=== PATIENT | female | born 1955 | race African-American/Black ===

== ENCOUNTER → 2018-01-28 | Outpatient (CLI) | payer OTHER ==
[~2018-01-28] MED LIST: ACYCLOVIR 400400 M1 PO; ACYCLOVIR 400400 MG PO; ADULT LOW DOSE81 MG PO; ALBUTEROL2.5 MG/31 INH; AMITIZA 24 MCG24 MC1 PO; ANORO ELLIPTA1 EACH INH; ASPIR 8181 MG PO; ATIVAN2 MG PO; BELLADONNA-OPI1 EACH PO; BELLADONNA-OPI1 EACH RECTAL; BENTYL 10 MG CA10 M1 PO; BENTYL10 MG PO; CARAFATE 1 GM TA1 G1 PO; CEFDINIR300 MG PO; CEFPODOXIME PR100 MG PO; COLACE 100 MG100 MG PO; COMPAZINE25 MG RE; DARVOCET-N 1001 EACH PO; ERYTHROMYCIN250 MG PO; FLOMAX0.4 MG PO; HCTZ PO; HYDROCHLOROTHIA25 M2 PO; HYDROCODON-ACE1 EAC8 PO; HYDROCORTISONE30 G9; K-DUR 20 MEQ T20 MEQ PO; LIDOCAINE VISC100 ML SW&SWALLOW; LIDOCARE1 EACH TOP; LINZESS290 MCG PO; LIPITOR10 MG PO; LORAZEPAM 0.50.5 MG PO; LORAZEPAM 1 MG T1 M1 PO; LORTAB 5 MG/5001 TA1 PO; METHADOSE5 MG PO; METHOCARBAMOL500 M2 PO; MOBIC15 MG PO; NORCO 5-325 TA1 EACH; NORCO 5-325 TA1 EACH PO; NORCO 7.5-3251 EACH PO; OMEPRAZOLE 20 M20 M1 PO; OMEPRAZOLE20 MG PO; PANCREASE PO; PHENERGAN 25 MG25 M1 PO; PHENERGAN 25 MG25 MG PO; PLAVIX 75 MG TA75 MG PO; POTASSIUM20 PO; PRAVACHOL20 MG PO; PRAVASTATIN SOD20 MG PO; PREDNISONE 20 M20 MG PO; PROAIR HFA8.5 GM INH; PROMS25 WY RECTAL; PROSED-DS TABL1 EACH PO; ROBAXIN 750 MG750 M1 PO; SIMETHICON CHEW80 M1 PO; TESSALON PERLE100 MG PO; TRIAMTERENE-HC1 EAC1; TRIAMTERENE-HC1 EAC1 PO; VALTREX1000 MG PO; VENTOLIN HFA 1818 GM INH; VERTICALM25 MG PO; VITAMIN D400 UNI2 PO; VITAMIN E400 UNI2 PO; VITAMINC500 PO; XIFAXAN 200 MG200 M1 PO; ZENPEP DR 5,001 EAC1 PO; ZOFRAN ODT8 MG PO; ZPAK PO
== END ==
LOC: RAD 09:36
DX: R06.00 Dyspnea, unspecified (principal)

== ENCOUNTER 2018-02-01 13:14 | Emergency (ER) | payer OTHER ==
[~2018-02-01] VITALS: Ht 170.2 cm; Wt 107.5 kg
--- NOTE | ~2018-02-01 | EKG ---
[place] [address] [address] [facility] [place] [address] ELECTROCARDIOGRAM REPORT Name: JUVE SNEEDN Miranda 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
[~2018-02-01 13:14] MED LIST changes: -ACYCLOVIR 400400 MG PO; -ALBUTEROL2.5 MG/31 INH; -ANORO ELLIPTA1 EACH INH; -ASPIR 8181 MG PO; -BELLADONNA-OPI1 EACH PO; -BELLADONNA-OPI1 EACH RECTAL; -BENTYL 10 MG CA10 M1 PO; -CARAFATE 1 GM TA1 G1 PO; -CEFDINIR300 MG PO; -CEFPODOXIME PR100 MG PO; -FLOMAX0.4 MG PO; -HYDROCODON-ACE1 EAC8 PO; -LIDOCAINE VISC100 ML SW&SWALLOW; -LIDOCARE1 EACH TOP; -LINZESS290 MCG PO; -LORAZEPAM 1 MG T1 M1 PO; -METHADOSE5 MG PO; -METHOCARBAMOL500 M2 PO; -MOBIC15 MG PO; -NORCO 5-325 TA1 EACH PO; -NORCO 7.5-3251 EACH PO; -OMEPRAZOLE 20 M20 M1 PO; -PHENERGAN 25 MG25 MG PO; -POTASSIUM20 PO; -PRAVACHOL20 MG PO; -PREDNISONE 20 M20 MG PO; -PROAIR HFA8.5 GM INH; -PROMS25 WY RECTAL; -ROBAXIN 750 MG750 M1 PO; -TESSALON PERLE100 MG PO; -VENTOLIN HFA 1818 GM INH; -VERTICALM25 MG PO; -VITAMIN D400 UNI2 PO; -VITAMIN E400 UNI2 PO; -VITAMINC500 PO; -ZENPEP DR 5,001 EAC1 PO; -ZOFRAN ODT8 MG PO; -ZPAK PO
[2018-02-01] MEDS ORDERED: HYDROCHLOROTHIA25 M2 PO (13:37)
[2018-02-01] MEDS ORDERED: OMEPRAZOLE 20 M20 M1 PO (13:38)
[2018-02-01] MEDS ORDERED: ACYCLOVIR 400400 MG PO (13:38)
[2018-02-01] MEDS ORDERED: ROBAXIN 750 MG750 M1 PO (13:40)
[2018-02-01] MEDS ORDERED: CARAFATE 1 GM TA1 G1 PO (13:41)
[2018-02-01] MEDS ORDERED: VENTOLIN HFA 1818 GM INH (13:43)
[2018-02-01] MEDS ORDERED: FLOMAX0.4 MG PO (13:43)
[2018-02-01] MEDS ORDERED: ANORO ELLIPTA1 EACH INH (13:43)
[2018-02-01] MEDS ORDERED: BELLADONNA-OPI1 EACH PO (13:44)
[2018-02-01 14:05] LABS: URINE BILIRUBIN 1+ (Negative); URINE BLOOD NEGATIVE (Negative); URINE CLARITY CLEAR; URINE COLOR YELLOW; URINE GLUCOSE-RANDOM* NEGATIVE (Negative); URINE KETONES NEGATIVE (Negative); URINE LEUKOCYTES-REFLEX NEGATIVE (Negative); URINE NITRITE-REFLEX NEGATIVE (Negative); URINE PROTEIN (DIPSTICK) TRACE (Negative); URINE SPECIFIC GRAVITY >= 1.030 (1.005-1.035); URINE UROBILINOGEN 0.2 E.U./dl (0.2-1.0)
[2018-02-01 14:10] LABS: ICTOTEST (BILI CONFIRMATORY) Negative (Negative)
[2018-02-01 16:26] LABS: ABSOLUTE NEUTROPHILS 4.7 thou/uL (1.4-8.2); BASOPHILS 0.7 % (0.0-2.0); EOSINOPHILS 0.6 % (0.0-3.0); HEMATOCRIT 39.4 % (37.0-47.0); HEMOGLOBIN 13.1 gm/dL (12.0-15.0); LYMPHOCYTES 40.1 % (24.0-44.0); MCH 29.6 pg (26.0-34.0); MCHC 33.1 g/dL (28.0-37.0); MCV 89.5 fL (80.0-100.0); PLATELET COUNT 371 thou/uL (150-400); POLYS 51.6 % (36.0-66.0); RBC 4.41 mil/uL (4.20-5.00); RDW 15.8 % (10.5-14.5); WBC 9.2 thou/uL (4.0-11.0)
[2018-02-01 16:42] LABS: ANION GAP 8 mmol/L (7-16); BUN 11 mg/dL (7-18); CALCIUM 9.2 mg/dL (8.5-10.1); CHLORIDE 104 mmol/L (98-107); CO2 28 mmol/L (21-32); CREATININE 1.1 mg/dL (0.6-1.0); GLUCOSE 84 mg/dL (74-106); POTASSIUM 3.3 mmol/L (3.5-5.1); SODIUM 140 mmol/L (136-145)
[2018-02-01 16:46] LABS: ALBUMIN 3.5 g/dL (3.4-5.0); LIPASE 121 U/L (73-393); SGOT 20 U/L (15-37); SGPT 27 U/L (30-65); TOTAL BILIRUBIN 0.3 mg/dL (<0.1-1.0); TOTAL PROTEIN 6.9 g/dL (6.4-8.2); TROPONIN-I < 0.04 ng/mL (<0.06)
[2018-02-01 16:54] LABS: DIRECT BILIRUBIN < 0.1 mg/dL (<0.1-0.3)
[2018-02-01 19:19] VITALS: BP 136/84
[2018-03-22] MEDS ORDERED: BENTYL 10 MG CA10 M1 PO (08:20)
[2018-03-22] MEDS ORDERED: LIDOCARE1 EACH TOP (08:21)
[2018-03-22] MEDS ORDERED: LIDOCAINE VISC100 ML SW&SWALLOW (08:22)
[2018-03-22] MEDS ORDERED: PROMS25 WY RECTAL (08:22)
[2018-03-22] MEDS ORDERED: PHENERGAN 25 MG25 MG PO (08:23)
[2018-03-22] MEDS ORDERED: HYDROCHLOROTHIA25 M2 PO (08:23)
[2018-03-22] MEDS ORDERED: HYDROCODON-ACE1 EAC8 PO (08:24)
[2018-03-22] MEDS ORDERED: LORAZEPAM 1 MG T1 M1 PO (08:24)
[2018-03-22] MEDS ORDERED: METHOCARBAMOL500 M2 PO (08:25)
[2018-03-22] MEDS ORDERED: POTASSIUM20 PO (08:25)
[2018-03-22] MEDS ORDERED: PRAVACHOL20 MG PO (08:26)
[2018-03-22] MEDS ORDERED: FLOMAX0.4 MG PO (08:26)
[2018-03-22] MEDS ORDERED: ACYCLOVIR 400400 MG PO (08:27)
[2018-03-22] MEDS ORDERED: CARAFATE 1 GM TA1 G1 PO (08:27)
[2018-03-22] MEDS ORDERED: BELLADONNA-OPI1 EACH RECTAL (08:28)
[2018-03-22] MEDS ORDERED: LINZESS290 MCG PO (08:28)
[2018-03-22] MEDS ORDERED: ASPIR 8181 MG PO (08:28)
[2018-03-22] MEDS ORDERED: OMEPRAZOLE 20 M20 M1 PO (08:29)
[2018-03-22] MEDS ORDERED: ANORO ELLIPTA1 EACH INH (08:30)
[2018-03-22] MEDS ORDERED: PROAIR HFA8.5 GM INH (08:30)
[2018-03-22] MEDS ORDERED: VITAMIN D400 UNI2 PO (08:31)
[2018-03-22] MEDS ORDERED: VITAMINC500 PO (08:31)
[2018-03-22] MEDS ORDERED: VITAMIN E400 UNI2 PO (08:31)
[2018-03-22] MEDS ORDERED: TESSALON PERLE100 MG PO (08:32)
[2018-03-22] MEDS ORDERED: ZENPEP DR 5,001 EAC1 PO (08:57)
[2018-08-03] MEDS ORDERED: VERTICALM25 MG PO (15:17)
[2018-08-19] MEDS ORDERED: METHADOSE5 MG PO (19:24)
[2018-08-19] MEDS ORDERED: PREDNISONE 20 M20 MG PO (20:49)
== END 2018-02-01 19:21 | disposition home or self-care (01) ==
LOC: ER 13:14
PROVIDERS: Emergency Medicine
DX: K59.00 Constipation, unspecified (principal); R13.10 Dysphagia, unspecified; E78.5 Hyperlipidemia, unspecified; K21.9 Gastro-esophageal reflux disease without esophagitis; Z90.49 Acquired absence of other specified parts of digestive tract; Z90.710 Acquired absence of both cervix and uterus; Z88.5 Allergy status to narcotic agent; Z88.6 Allergy status to analgesic agent

== ENCOUNTER 2018-03-24 06:56 | Emergency (ER) | payer OTHER ==
[~2018-03-24] VITALS: Ht 152.4 cm; Wt 116.1 kg
--- NOTE | ~2018-03-24 | EKG ---
[place] [address] [facility] [place] [address] ELECTROCARDIOGRAM REPORT Name: JUVE SNEEDN Miranda [facility] [id number] Admission: 03/24/18 Attend Phys: Discharge: 03/24/18 Date of : 59 Report #: [id number] THIS REPORT FOR: //name// [facility] ED Test Date: 2018-03-24 Test Time: 07:24:36 Pat Name: MIGDALIA SNEED Department: Room: Gender: F Work Counselor: : 1955 Requested By: Amy Kang Order Number: [id number] MD: Eduardo Guy Measurements Intervals [place] Rate: 71 P: 63 [place]: 172 QRS: 35 QRSD: 89 T: 11 QT: 384 QTc: 418 Interpretive Statements Sinus rhythm No significant abnormality Compared to ECG 02/01/2018 15:09:46 No significant changes Electronically Signed On 03-24-2018 16:38:00 CDT by Eduardo Guy [email or web address] <ELECTRONICALLY SIGNED> By: Eduardo Guy MD, [facility] 03/24/18 1638 0724 3 Eduardo Guy MD, FACC /EPI
[~2018-03-24 06:56] MED LIST changes: +ACYCLOVIR 400400 MG PO; +ANORO ELLIPTA1 EACH INH; +ASPIR 8181 MG PO; +BELLADONNA-OPI1 EACH PO; +BELLADONNA-OPI1 EACH RECTAL; +BENTYL 10 MG CA10 M1 PO; +CARAFATE 1 GM TA1 G1 PO; +FLOMAX0.4 MG PO; +HYDROCODON-ACE1 EAC8 PO; +LIDOCAINE VISC100 ML SW&SWALLOW; +LIDOCARE1 EACH TOP; +LINZESS290 MCG PO; +LORAZEPAM 1 MG T1 M1 PO; +METHOCARBAMOL500 M2 PO; +OMEPRAZOLE 20 M20 M1 PO; +PHENERGAN 25 MG25 MG PO; +POTASSIUM20 PO; +PRAVACHOL20 MG PO; +PROAIR HFA8.5 GM INH; +PROMS25 WY RECTAL; +ROBAXIN 750 MG750 M1 PO; +TESSALON PERLE100 MG PO; +VENTOLIN HFA 1818 GM INH; +VITAMIN D400 UNI2 PO; +VITAMIN E400 UNI2 PO; +VITAMINC500 PO; +ZENPEP DR 5,001 EAC1 PO
[2018-03-24 07:45] LABS: ABSOLUTE NEUTROPHILS 4.2 thou/uL (1.4-8.2); BASOPHILS 1.2 % (0.0-2.0); EOSINOPHILS 1.6 % (0.0-3.0); HEMATOCRIT 39.3 % (37.0-47.0); HEMOGLOBIN 12.9 gm/dL (12.0-15.0); LYMPHOCYTES 37.9 % (24.0-44.0); MCH 29.8 pg (26.0-34.0); MCHC 32.9 g/dL (28.0-37.0); MCV 90.4 fL (80.0-100.0); MONOCYTES 6.3 % (1.0-8.0); PLATELET COUNT 336 thou/uL (150-400); RBC 4.35 mil/uL (4.20-5.00); RDW 16.1 % (10.5-14.5); WBC 7.9 thou/uL (4.0-11.0)
[2018-03-24 07:53] LABS: ANION GAP 8 mmol/L (7-16); BUN 14 mg/dL (7-18); CALCIUM 9.1 mg/dL (8.5-10.1); CHLORIDE 111 mmol/L (98-107); CO2 22 mmol/L (21-32); CREATININE 0.9 mg/dL (0.6-1.0); GLUCOSE 103 mg/dL (74-106); POTASSIUM 4.4 mmol/L (3.5-5.1); SODIUM 141 mmol/L (136-145)
[2018-03-24 08:02] LABS: TROPONIN-I < 0.04 ng/mL (<0.06)
[2018-03-24] MEDS ORDERED: NORCO 5-325 TA1 EACH PO (09:31)
== END 2018-03-24 10:23 | disposition home or self-care (01) ==
LOC: ER 06:56
PROVIDERS: Emergency Medicine
DX: M25.512 Pain in left shoulder (principal); E78.5 Hyperlipidemia, unspecified; K21.9 Gastro-esophageal reflux disease without esophagitis; F41.9 Anxiety disorder, unspecified; I50.9 Heart failure, unspecified; Z90.49 Acquired absence of other specified parts of digestive tract; Z90.710 Acquired absence of both cervix and uterus; Z88.5 Allergy status to narcotic agent; Z88.8 Allergy status to other drugs, medicaments and biological substances

== ENCOUNTER → 2018-03-25 | Day surgery (SDC) | payer OTHER ==
[~2018-03-25] VITALS: Ht 170.2 cm; Wt 107.0 kg
[~2018-03-25] MED LIST changes: +NORCO 5-325 TA1 EACH PO
[2018-03-25 06:53] LABS: HEMATOCRIT 39.2 % (37.0-47.0); HEMOGLOBIN 12.8 gm/dL (12.0-15.0)
[2018-03-25 07:04] LABS: CALCIUM 9.4 mg/dL (8.5-10.1); CREATININE 0.9 mg/dL (0.6-1.0); POTASSIUM 3.9 mmol/L (3.5-5.1)
[2018-03-25 07:24] VITALS: BP 127/61
[2018-03-25 08:59] VITALS: BP 127/61
== END | disposition home or self-care (01) ==
LOC: OR 05:30
PROVIDERS: Surgery
DX: Z45.2 Encounter for adjustment and management of vascular access device (principal); I87.2 Venous insufficiency (chronic) (peripheral); E78.00 Pure hypercholesterolemia, unspecified; E78.5 Hyperlipidemia, unspecified; K21.9 Gastro-esophageal reflux disease without esophagitis; K86.0 Alcohol-induced chronic pancreatitis; F17.210 Nicotine dependence, cigarettes, uncomplicated; F41.8 Other specified anxiety disorders; Z86.73 Personal history of transient ischemic attack (TIA), and cerebral infarction without residual deficits; Z90.49 Acquired absence of other specified parts of digestive tract; Z90.710 Acquired absence of both cervix and uterus; Z98.890 Other specified postprocedural states; Z88.8 Allergy status to other drugs, medicaments and biological substances; Z79.82 Long term (current) use of aspirin; Z79.899 Other long term (current) drug therapy; Z79.891 Long term (current) use of opiate analgesic
CPT/HCPCS: 50010; 50101; 50386; 50403; 51938; 54118; 56524; 56525; 56526; 70005

== ENCOUNTER 2018-05-04 08:00 | Emergency (ER) | payer OTHER ==
[~2018-05-04] VITALS: Ht 170.2 cm; Wt 106.6 kg
[2018-05-04] MEDS ORDERED: HYDROCODON-ACE1 EAC8 PO (08:18)
== END 2018-05-04 08:30 | disposition home or self-care (01) ==
LOC: ER 08:00
DX: M72.2 Plantar fascial fibromatosis (principal); E78.5 Hyperlipidemia, unspecified; K21.9 Gastro-esophageal reflux disease without esophagitis; F41.9 Anxiety disorder, unspecified; Z90.49 Acquired absence of other specified parts of digestive tract; Z90.710 Acquired absence of both cervix and uterus; Z86.73 Personal history of transient ischemic attack (TIA), and cerebral infarction without residual deficits; Z88.5 Allergy status to narcotic agent; Z88.8 Allergy status to other drugs, medicaments and biological substances

== ENCOUNTER → 2018-05-15 | Outpatient (CLI) | payer OTHER | LOC: RAD 09:08 | DX: R05 Cough (principal) ==

== ENCOUNTER 2018-05-22 12:06 | Emergency (ER) | payer OTHER ==
[~2018-05-22] VITALS: Ht 170.2 cm; Wt 104.3 kg
--- NOTE | ~2018-05-22 | HC ---
[facility] [place] [facility] [place] [address] CONSULTATION Name: MIGDALIA SNEED Room #: DEP Kaylynn#: [id number] Admission: 05/22/18 Attend Phys: Discharge: 05/22/18 Date of : 59 Report #: [id number] THIS REPORT FOR: //name// CC: Jayson Walter DICTATED BY: Stefania Brooke NP REASON FOR VISIT: Dysphagia. HISTORY OF PRESENT ILLNESS: The patient is a very pleasant 63-year-old -Japanese female who came into the Emergency Room with dysphagia. The patient states that this morning she was taking her morning pills and noticed that she started to have difficulty getting the pills down. She had to drink water just to try to get those pills down. She states she still feels like it is stuck in the middle of her chest. In the back of her throat, she feels like it is closing in on her and she has had this problem before. The patient follows with Dr. Lorenzana in our group. She last had an upper endoscopy done on 02/05 of this year. She had an EGD done, which showed reflux esophagitis and dyskinesia of the esophagus. She was dilated at that time with a 54-Turkmen Shah dilator. She tells me that she has had periodic EGDs done for the same issue. At that time also on her endoscopy it looked like there was possible Rajan's, but her biopsy was negative for that. She takes omeprazole 20 mg twice a day. PAST MEDICAL HISTORY: GERD, hiatal hernia, gastritis, diverticulitis, irritable bowel syndrome, constipation____, gastroparesis, pancreatitis, hypercholesterolemia, arthritis, TIA, colon polyps and anxiety. PAST SURGICAL HISTORY: She has had a breast lumpectomy done. She had a sigmoid colectomy done in 2016, appendectomy, cholecystectomy, hysterectomy, multiple laparoscopic surgeries and right neck lump removed. MEDICATIONS: She takes acyclovir 400 mg 4 times a day, Linzess 290 mcg 1 capsule once a day, lidocaine viscous 2% with Mylanta she swish and swallows two times a day. She takes promethazine 25 mg as needed. She takes a baby aspirin 81 mg daily, omeprazole 20 b.i.d., lorazepam 1 mg tablet 2 times a day, ____0.4 mg at bedtime, pravastatin 20 mg daily, methocarbamol 500 mg 1 tablet every 8 hours and Zenpep 2 times per day with meals. ALLERGIES: SHE IS ALLERGIC TO PLAVIX, COMPAZINE, REGLAN, FLAGYL, CODEINE AND MORPHINE. SOCIAL HISTORY: She denies any alcohol use. She denies any tobacco use. She has history of marijuana use in the past, but denies any currently. [facility] [place] [facility] [address] [place] [address] CONSULTATION Name: TRISTIAN SNEEDCATE Jean Room #: DEP BARBER Chaidez#: [id number] Admission: 05/22/18 Attend Phys: Discharge: 05/22/18 Date of : 59 Report #: [id number] FAMILY HISTORY: She denies any gastrointestinal or hepatobiliary disease of any kind. REVIEW OF SYSTEMS: A 14-point system has been reviewed and is otherwise negative other than what is mentioned in the HPI. PHYSICAL EXAMINATION: HEENT: Normocephalic and atraumatic. GENERAL APPEARANCE: The patient appears well developed and appears to be in no acute distress at present time. LUNGS: Diminished in the bases bilaterally. No wheezes or crackles are heard. CARDIOVASCULAR: S1 and S2 sounds are heard with no murmurs auscultated. ABDOMEN: Obese, soft, nondistended and nontender. Bowel sounds are present in all 4 quadrants. NEUROLOGIC: The patient is oriented to time, place and person. PSYCHIATRIC: Mood is pleasant. Affect is normal. EXTREMITIES: No edema noted. SKIN: General appearance was normal. IMPRESSION: 1. Dysphagia, most likely secondary to esophageal stricture. Other etiology could be pill esophagitis. 2. GERD. 3. Gastroparesis. 4. Hiatal hernia. PLAN: At this time, we will plan to do an EGD today and possible dilation as needed. The patient will need to continue taking PPI b.i.d. We will discuss with Dr. Jones and give further recommendations at that time. By: 1720 0613 Kaitlin Jones, DO /nt
--- NOTE | ~2018-05-22 | EKG ---
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
[2018-05-22 13:42] LABS: ABSOLUTE NEUTROPHILS 4.4 thou/uL (1.4-8.2); BASOPHILS 0.6 % (0.0-2.0); EOSINOPHILS 0.8 % (0.0-3.0); HEMATOCRIT 38.7 % (37.0-47.0); HEMOGLOBIN 12.7 gm/dL (12.0-15.0); LYMPHOCYTES 30.8 % (24.0-44.0); MCH 29.6 pg (26.0-34.0); MCHC 32.9 g/dL (28.0-37.0); MCV 90.1 fL (80.0-100.0); PLATELET COUNT 341 thou/uL (150-400); POLYS 60.8 % (36.0-66.0); RDW 15.7 % (10.5-14.5); WBC 7.2 thou/uL (4.0-11.0)
[2018-05-22 13:50] LABS: ANION GAP 4 mmol/L (7-16); BUN 9 mg/dL (7-18); CALCIUM 9.3 mg/dL (8.5-10.1); CHLORIDE 109 mmol/L (98-107); CO2 25 mmol/L (21-32); CREATININE 0.8 mg/dL (0.6-1.0); GLUCOSE 97 mg/dL (74-106); POTASSIUM 3.8 mmol/L (3.5-5.1); SODIUM 138 mmol/L (136-145)
[2018-05-22 13:59] LABS: TROPONIN-I <0.06 ng/mL (<0.06)
== END 2018-05-22 17:04 | disposition still patient (30) ==
LOC: ER 12:06
PROVIDERS: Emergency Medicine
DX: K44.9 Diaphragmatic hernia without obstruction or gangrene (principal); K22.0 Achalasia of cardia; K21.9 Gastro-esophageal reflux disease without esophagitis; E78.5 Hyperlipidemia, unspecified; Z90.49 Acquired absence of other specified parts of digestive tract; I50.9 Heart failure, unspecified; F41.9 Anxiety disorder, unspecified; Z90.710 Acquired absence of both cervix and uterus
CPT/HCPCS: 62110; 62900

== ENCOUNTER 2018-06-06 07:36 | Emergency (ER) | payer OTHER ==
[~2018-06-06] VITALS: Ht 170.2 cm; Wt 104.3 kg
[2018-06-06 08:36] LABS: URINE BILIRUBIN NEGATIVE (Negative); URINE BLOOD NEGATIVE (Negative); URINE CLARITY CLEAR; URINE COLOR YELLOW; URINE GLUCOSE-RANDOM* NEGATIVE (Negative); URINE KETONES NEGATIVE (Negative); URINE LEUKOCYTES-REFLEX NEGATIVE (Negative); URINE NITRITE-REFLEX NEGATIVE (Negative); URINE PROTEIN (DIPSTICK) NEGATIVE (Negative); URINE SPECIFIC GRAVITY 1.025 (1.005-1.035); URINE UROBILINOGEN 0.2 E.U./dl (0.2-1.0)
[2018-06-06 08:46] LABS: ABSOLUTE NEUTROPHILS 4.6 thou/uL (1.4-8.2); EOSINOPHILS 1.2 % (0.0-3.0); HEMATOCRIT 37.5 % (37.0-47.0); LYMPHOCYTES 36.8 % (24.0-44.0); MCH 30.5 pg (26.0-34.0); MCHC 34.7 g/dL (28.0-37.0); MCV 87.9 fL (80.0-100.0); MONOCYTES 5.7 % (1.0-8.0); PLATELET COUNT 338 thou/uL (150-400); POLYS 55.3 % (36.0-66.0); RBC 4.27 mil/uL (4.20-5.00); RDW 16.1 % (10.5-14.5); WBC 8.2 thou/uL (4.0-11.0)
[2018-06-06 08:54] LABS: CALCIUM 8.9 mg/dL (8.5-10.1); CREATININE 0.9 mg/dL (0.6-1.0); POTASSIUM 3.6 mmol/L (3.5-5.1)
== END 2018-06-06 10:41 | disposition home or self-care (01) ==
LOC: ER 07:36
PROVIDERS: Emergency Medicine
DX: T83.098A Other mechanical complication of other urinary catheter, initial encounter (principal); M54.5 Low back pain; E78.5 Hyperlipidemia, unspecified; K21.9 Gastro-esophageal reflux disease without esophagitis; F41.9 Anxiety disorder, unspecified; I50.9 Heart failure, unspecified; Z90.49 Acquired absence of other specified parts of digestive tract; Z90.89 Acquired absence of other organs; Z90.710 Acquired absence of both cervix and uterus; Z90.11 Acquired absence of right breast and nipple; Z88.5 Allergy status to narcotic agent; Z88.8 Allergy status to other drugs, medicaments and biological substances

== ENCOUNTER 2018-08-24 15:49 | Emergency (ER) | payer OTHER ==
[~2018-08-24] VITALS: Ht 170.2 cm; Wt 104.3 kg
--- NOTE | ~2018-08-24 | EKG ---
[address] [address] ELECTROCARDIOGRAM REPORT Name: JUVE SNEEDN Miranda [id number] Admission: 08/24/18 Attend Phys: Discharge: 08/24/18 Date of : 59 Report #: [id number] THIS REPORT FOR: //name// [facility] ED Test Date: 2018-08-24 Test Time: 18:45:10 Pat Name: MIGDALIA SNEED Department: Room: Gender: F Life Skills Coach: JUAN JOSE : 1955 Requested By: Amy Kang Order Number: [id number] MD: Candelario Rodriguez Measurements Intervals [place] Rate: 81 P: 66 [place]: 167 QRS: 47 QRSD: 94 T: 17 QT: 371 QTc: 431 Interpretive Statements Sinus rhythm Compared to ECG 08/03/2018 11:04:13 No significant changes Electronically Signed On 08-25-2018 13:25:52 CDT by Candelario Rodriguez [email or web address] <ELECTRONICALLY SIGNED> By: Candelario Rodriguez MD 08/25/18 1325 1845 44 Candelario Rodriguez MD /ABEL
[~2018-08-24 15:49] MED LIST changes: +METHADOSE5 MG PO; +PREDNISONE 20 M20 MG PO; +VERTICALM25 MG PO
[2018-08-24] MEDS ORDERED: MOBIC15 MG PO (18:20)
[2018-08-24] MEDS ORDERED: ZPAK PO (18:20)
== END 2018-08-24 19:17 | disposition home or self-care (01) ==
LOC: ER 15:49
DX: J06.9 Acute upper respiratory infection, unspecified (principal); F17.210 Nicotine dependence, cigarettes, uncomplicated; F41.9 Anxiety disorder, unspecified; K58.9 Irritable bowel syndrome, unspecified; E78.5 Hyperlipidemia, unspecified; I50.9 Heart failure, unspecified; K21.9 Gastro-esophageal reflux disease without esophagitis; K86.1 Other chronic pancreatitis; Z90.710 Acquired absence of both cervix and uterus; Z90.11 Acquired absence of right breast and nipple; Z88.5 Allergy status to narcotic agent; Z86.73 Personal history of transient ischemic attack (TIA), and cerebral infarction without residual deficits; Z88.6 Allergy status to analgesic agent; Z90.49 Acquired absence of other specified parts of digestive tract; Z88.8 Allergy status to other drugs, medicaments and biological substances

== ENCOUNTER 2018-08-26 08:58 | Inpatient (IN) | payer OTHER ==
[~2018-08-26] VITALS: Ht 170.2 cm; Wt 112.0 kg
--- NOTE | ~2018-08-26 | HC ---
[facility] [place] [address] CONSULTATION Name: JUVE SNEEDChiara Jean Room #: 422-P ADM IN M.R.#: [id number] Admission: 08/26/18 Attend Phys: Yuri Walter MD Discharge: Date of : 59 Report #: [id number] THIS REPORT FOR: //name// CC: Yuri Walter REFERRING PHYSICIAN: Dr. Walter. REASON FOR REFERRAL: Dyspnea. HISTORY OF PRESENT ILLNESS: The patient is a 63-year-old -Kuwaiti female who presented to the Emergency Room with progressive dyspnea. A pulmonary consultation was requested. The patient is known to this physician. She was previously seen in the office in 12/2017 for evaluation of pneumonia. She was hospitalized in 11/2017 at [facility]. She was felt to have viral syndrome. Chest x-ray at that time showed multilobar ground glass opacities. A repeat CT chest performed at that time showed hazy ground glass opacities in both lung richardson that are patchy in distribution. No lung nodule was seen. At that time, the patient had improved in regards to pulmonary symptoms. The patient does smoke about a pack a day for the last 45 years. She was in her usual state of health until 2 days prior to presentation she started developing increasing dyspnea, orthopnea, pain along the left side of the neck and jaw and lightheadedness. She was advised to be seen in the Emergency Room. She was also seen in the ER a few days ago. She was felt to have possible pneumonia. Alvinoomax was given. Her cough is predominantly nonproductive. Otherwise, denies any sore throat, nausea, vomiting, diarrhea, recent febrile illness and hemoptysis. Chest x-ray on admission revealed moderately increased interstitial markings. These are diffuse. PAST MEDICAL HISTORY: As mentioned above. This include recent pneumonia in 11/2017, history of ground glass opacities by prior chest CT in 12/2017, carpal tunnel, diverticulosis, hiatal hernia, irritable bowel syndrome, incontinence, interstitial cystitis, history of pancreatitis, shingles, tardive dyskinesia involving the tongue and urinary retention. PAST SURGICAL HISTORY: Include appendectomy, bladder repair, lumpectomy in the right, cholecystectomy, colectomy for diverticulitis, hand ligament reconstruction surgery on the right, herniorrhaphy, hysterectomy, bladder repair along with left foot surgery. [address] [address] CONSULTATION Name: NEDRAMIGDALIA J Room #: 422-P [facility] IN .R.#: [id number] Admission: 08/26/18 Attend Phys: Yuri Walter MD Discharge: Date of : 59 Report #: [id number] ALLERGIES: CODEINE, COMPAZINE, METRONIDAZOLE, METHYLPREDNISOLONE, MORPHINE, NEURONTIN, GABAPENTIN, PLAVIX AND REGLAN, REACTIONS ALL NOT SPECIFIED EXCEPT FOR NEURONTIN, WHICH CAUSES SWELLING. HOME MEDICATIONS: Reviewed. This include Proventil, pancrease, Anoro, HydroDIURIL, hydrocodone, Lidoderm patch, linaclotide, Ativan, Robaxin, Prilosec, opium-belladonna, potassium supplements, pravastatin, sucralfate, Tessalon Perles, Flomax. FAMILY HISTORY: Notable for heart failure in the mother. SOCIAL HISTORY: She smokes about a pack a day. She has smoked for the last 45 years. She denies any alcohol use. She is . REVIEW OF SYSTEMS: As mentioned above, otherwise 10-point system review negative. PHYSICAL EXAMINATION: She is awake, alert, appears to be mildly dyspneic. No distress. LABORATORY DATA: Chest x-ray as mentioned above. CT chest revealed a mild bilateral bullous disease. Moderate bilateral diffuse ground glass opacity is noted. Compared to the previous study, the ground glass opacities shows some improvement. Electrolytes are normal and creatinine is normal. Liver enzymes are grossly unremarkable. WBC 15,800. No evidence of bandemia. Eosinophils are normal. Albumin is 3.0. IMPRESSION: 1. Progressive dyspnea in this 63-year-old -Kuwaiti female. Chest x-ray and chest CT shows ground glass opacities. She has a history of COPD. She continues to smoke. Suspect exacerbation of COPD as a primary cause. Infiltrates is likely chronic and probably not related to pneumonia, but cannot rule out at this time. 2. Chronic obstructive pulmonary disease exacerbation, severity not defined. 3. Tobacco abuse. 4. Persistent infiltrates. Prior chest CT and current chest CT continue to show ground glass opacities. This may represent interstitial lung disease such as idiopathic in origin versus collagen vascular disease. Without significant improvement over the last several months, I believe the patient will benefit from further workup. We will proceed with bronchoscopy as an initial step once the patient is clinically stable. 5. Gastroesophageal reflux disease. 6. Chronic pancreatitis. This may be a possible cause for the patient's underlying interstitial lung disease leading to systemic inflammatory response syndrome. [facility] [address] [place] [address] CONSULTATION Name: MIGDALIA SNEED Room #: 422-P [facility] IN M.R.#: [id number] Admission: 08/26/18 Attend Phys: Yuri Walter MD Discharge: Date of : 59 Report #: [id number] 7. History of gastroparesis. 8. Anxiety disorder. 9. Hiatal hernia. 10. Irritable bowel syndrome. RECOMMENDATION: We will recommend broad-spectrum antibiotics, corticosteroids, bronchodilators. Once stable, we will proceed with bronchoscopy, bronchial lavage regarding possible interstitial lung disease. Collagen vascular disease workup will be initiated. DVT and GI prophylaxis recommended. Smoke cessation again is advised to the patient. Thank you for this consultation. <ELECTRONICALLY SIGNED> By: Mesfin Zarate MD 08/29/18 1933 1833 0519 Mesfin Zarate MD /nt
--- NOTE | ~2018-08-26 | EKG ---
[address] [address] ELECTROCARDIOGRAM REPORT Name: MIGDALIA SNEED Room #: 422-P ADM IN M.R.#: [id number] Admission: 08/26/18 Attend Phys: Yuri Walter MD Discharge: Date of : 59 Report #: [id number] THIS REPORT FOR: //name// [facility] ED Test Date: 2018-08-26 Test Time: 09:19:28 Pat Name: MIGDALIA SNEED Department: Room: [facility] Gender: F Superintendent Gas Distribution: Alexandrea STEWART : 1955 Requested By: Antony Pitt Order Number: [id number] MD: Candelario Rodriguez Measurements Intervals [place] Rate: 68 P: 67 SC: 157 QRS: 47 QRSD: 76 T: 17 QT: 382 QTc: 407 Interpretive Statements Sinus rhythm Compared to ECG 08/24/2018 18:45:10 No significant changes Electronically Signed On 08-26-2018 15:05:59 CDT by Candelario Rodriguez [email or web address] <ELECTRONICALLY SIGNED> By: Candelario Rodriguez MD 08/26/18 1505 8 8 Candelario Rodriguez MD /ABEL
[~2018-08-26 08:58] MED LIST changes: +MOBIC15 MG PO; +ZPAK PO
[2018-08-26 09:00] VITALS: BP 137/74
[2018-08-26] MEDS ORDERED: NORCO 7.5-3251 EACH PO (09:07)
[2018-08-26 09:42] LABS: HEMATOCRIT 33.8 % (37.0-47.0); HEMOGLOBIN 11.4 gm/dL (12.0-15.0); MCH 29.9 pg (26.0-34.0); MCHC 33.8 g/dL (28.0-37.0); MCV 88.6 fL (80.0-100.0); PLATELET COUNT 371 thou/uL (150-400); RBC 3.81 mil/uL (4.20-5.00); RDW 15.3 % (10.5-14.5); WBC 15.8 thou/uL (4.0-11.0)
[2018-08-26 09:53] LABS: ANION GAP 6 mmol/L (7-16); BUN 16 mg/dL (7-18); CALCIUM 9.2 mg/dL (8.5-10.1); CHLORIDE 105 mmol/L (98-107); CO2 30 mmol/L (21-32); CREATININE 0.9 mg/dL (0.6-1.0); GLUCOSE 83 mg/dL (74-106); POTASSIUM 3.2 mmol/L (3.5-5.1); SODIUM 141 mmol/L (136-145)
[2018-08-26 10:03] LABS: SGOT 23 U/L (15-37); SGPT 18 U/L (30-65); TOTAL BILIRUBIN 0.4 mg/dL (<0.1-1.0); TOTAL PROTEIN 6.6 g/dL (6.4-8.2); TROPONIN-I <0.06 ng/mL (<0.06)
[2018-08-26 10:22] LABS: ABSOLUTE NEUTROPHILS 10.9 thou/uL (1.4-8.2); PLATELET ESTIMATE NORMAL
[2018-08-26 11:59] VITALS: BP 123/50
[2018-08-26 12:57] VITALS: BP 123/46
[2018-08-26 13:30] VITALS: BP 127/74
[2018-08-26 16:50] VITALS: BP 120/42
[2018-08-26 19:53] VITALS: BP 107/56
[2018-08-27 07:26] VITALS: BP 133/75
[2018-08-27 08:41] LABS: HEMATOCRIT 35.5 % (37.0-47.0); HEMOGLOBIN 11.4 gm/dL (12.0-15.0); MCH 29.3 pg (26.0-34.0); MCHC 32.1 g/dL (28.0-37.0); RBC 3.9 mil/uL (4.20-5.00); RDW 15.4 % (10.5-14.5); WBC 14.1 thou/uL (4.0-11.0)
[2018-08-27 08:52] LABS: CALCIUM 9.9 mg/dL (8.5-10.1)
[2018-08-27 09:00] LABS: POTASSIUM 4.3 mmol/L (3.5-5.1)
[2018-08-27 19:30] VITALS: BP 132/94
[2018-08-28 08:07] VITALS: BP 114/74
[2018-08-28 19:12] VITALS: BP 151/59
[2018-08-28 19:45] VITALS: BP 152/65
[2018-08-29 05:48] VITALS: BP 139/85
[2018-08-29 07:39] VITALS: BP 146/75
[2018-08-29 08:30] VITALS: BP 146/70
[2018-08-29 19:40] VITALS: BP 122/64
[2018-08-30 05:50] VITALS: BP 118/51
[2018-08-30 07:40] VITALS: BP 155/64
[2018-08-30] MEDS ORDERED: ALBUTEROL2.5 MG/31 INH (08:06)
[2018-08-30] MEDS ORDERED: CEFDINIR300 MG PO (08:06)
[2018-08-30 10:09] LABS: ANA INTERPRETATION Negative (Negative)
[2018-08-30 12:57] VITALS: BP 155/64
[2018-08-30 14:23] VITALS: BP 155/64
[2018-08-30 15:06] VITALS: BP 155/64
== END 2018-08-30 16:17 | disposition home health service (06) | DRG 177 ==
LOC: ER 08:58 → 4E 11:15 → EROBS 11:15 → 4E 12:59 → ENTRNSPT 08-30 16:10 → 4E 08-30 16:17
PROVIDERS: Emergency Medicine; Family Medicine; Internal Medicine Pulmonary Disease
DX: J69.0 Pneumonitis due to inhalation of food and vomit (principal); I50.23 Acute on chronic systolic (congestive) heart failure; J44.1 Chronic obstructive pulmonary disease with (acute) exacerbation; K86.1 Other chronic pancreatitis; J44.0 Chronic obstructive pulmonary disease with (acute) lower respiratory infection; I11.0 Hypertensive heart disease with heart failure; K29.70 Gastritis, unspecified, without bleeding; K22.2 Esophageal obstruction; E78.5 Hyperlipidemia, unspecified; F41.9 Anxiety disorder, unspecified; K21.9 Gastro-esophageal reflux disease without esophagitis; F17.210 Nicotine dependence, cigarettes, uncomplicated; K57.90 Diverticulosis of intestine, part unspecified, without perforation or abscess without bleeding; K44.9 Diaphragmatic hernia without obstruction or gangrene; K58.9 Irritable bowel syndrome, unspecified; G89.29 Other chronic pain; M54.9 Dorsalgia, unspecified; R13.10 Dysphagia, unspecified; K31.84 Gastroparesis; Z90.49 Acquired absence of other specified parts of digestive tract; Z90.710 Acquired absence of both cervix and uterus; Z90.722 Acquired absence of ovaries, bilateral; Z86.73 Personal history of transient ischemic attack (TIA), and cerebral infarction without residual deficits; Z88.6 Allergy status to analgesic agent; Z88.8 Allergy status to other drugs, medicaments and biological substances; Z82.49 Family history of ischemic heart disease and other diseases of the circulatory system; Z79.82 Long term (current) use of aspirin; Z79.899 Other long term (current) drug therapy; Z86.010 Personal history of colon polyps
CPT/HCPCS: 10183

== ENCOUNTER 2018-09-05 07:55 | Emergency (ER) | payer OTHER ==
[~2018-09-05] VITALS: Ht 170.2 cm; Wt 104.3 kg
--- NOTE | ~2018-09-05 | EKG ---
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 Reporting Clerk: GABINO : 1955 Requested By: Jayson Yanez Order Number: [id number] MD: Candelario Rodriguez Measurements Intervals [place] Rate: 69 P: 67 [place]: 159 QRS: 45 QRSD: 76 T: 34 QT: 383 QTc: 411 Interpretive Statements Sinus rhythm Consider left atrial enlargement Compared to ECG 08/26/2018 09:19:28 No significant changes Electronically Signed On 09-06-2018 8:14:49 CDT by Candelario Rodriguez [email or web address] <ELECTRONICALLY SIGNED> By: Candelario Rodriguez MD 09/06/18 0814 4 Candelario Rodriguez MD /ABEL
[~2018-09-05 07:55] MED LIST changes: +ALBUTEROL2.5 MG/31 INH; +CEFDINIR300 MG PO; +NORCO 7.5-3251 EACH PO
[2018-09-05 08:47] LABS: ABSOLUTE NEUTROPHILS 11.4 thou/uL (1.4-8.2); BASOPHILS 0.6 % (0.0-2.0); HEMATOCRIT 36.5 % (37.0-47.0); HEMOGLOBIN 12.2 gm/dL (12.0-15.0); LYMPHOCYTES 13.4 % (24.0-44.0); MCH 29.8 pg (26.0-34.0); MCHC 33.3 g/dL (28.0-37.0); MCV 89.5 fL (80.0-100.0); MONOCYTES 4.5 % (1.0-8.0); PLATELET COUNT 404 thou/uL (150-400); POLYS 80.5 % (36.0-66.0); RBC 4.08 mil/uL (4.20-5.00); RDW 15.6 % (10.5-14.5); WBC 14.1 thou/uL (4.0-11.0)
[2018-09-05 08:55] LABS: ANION GAP 6 mmol/L (7-16); BUN 22 mg/dL (7-18); CALCIUM 9.1 mg/dL (8.5-10.1); CHLORIDE 101 mmol/L (98-107); CO2 31 mmol/L (21-32); GLUCOSE 105 mg/dL (74-106); POTASSIUM 3.8 mmol/L (3.5-5.1); SODIUM 138 mmol/L (136-145)
[2018-09-05 08:59] LABS: URINE BILIRUBIN NEGATIVE (Negative); URINE BLOOD NEGATIVE (Negative); URINE CLARITY CLEAR; URINE COLOR YELLOW; URINE GLUCOSE-RANDOM* NEGATIVE (Negative); URINE KETONES NEGATIVE (Negative); URINE NITRITE-REFLEX NEGATIVE (Negative); URINE PROTEIN (DIPSTICK) NEGATIVE (Negative); URINE SPECIFIC GRAVITY 1.015 (1.005-1.035); URINE UROBILINOGEN 0.2 E.U./dl (0.2-1.0)
[2018-09-05 09:00] LABS: URINE LEUKOCYTES-REFLEX TRACE (Negative)
[2018-09-05 09:04] LABS: LIPASE 69 U/L (73-393); SGOT 22 U/L (15-37); SGPT 31 U/L (30-65); TOTAL BILIRUBIN 0.2 mg/dL (<0.1-1.0); TOTAL PROTEIN 6.7 g/dL (6.4-8.2); TROPONIN-I <0.06 ng/mL (<0.06)
== END 2018-09-05 10:41 | disposition home or self-care (01) ==
LOC: ER 07:55
PROVIDERS: Emergency Medicine
DX: J44.9 Chronic obstructive pulmonary disease, unspecified (principal); J18.9 Pneumonia, unspecified organism; D72.829 Elevated white blood cell count, unspecified; R11.2 Nausea with vomiting, unspecified; G89.29 Other chronic pain; R10.9 Unspecified abdominal pain; F17.210 Nicotine dependence, cigarettes, uncomplicated; K58.9 Irritable bowel syndrome, unspecified; K31.84 Gastroparesis; E78.5 Hyperlipidemia, unspecified; K21.9 Gastro-esophageal reflux disease without esophagitis; F41.9 Anxiety disorder, unspecified; K86.1 Other chronic pancreatitis; I50.9 Heart failure, unspecified; Z90.49 Acquired absence of other specified parts of digestive tract; Z90.710 Acquired absence of both cervix and uterus; Z86.73 Personal history of transient ischemic attack (TIA), and cerebral infarction without residual deficits; Z90.11 Acquired absence of right breast and nipple; Z88.5 Allergy status to narcotic agent; Z88.8 Allergy status to other drugs, medicaments and biological substances

== ENCOUNTER → 2018-09-09 | Outpatient (CLI) | payer OTHER ==
--- NOTE | ~2018-09-09 | O ---
[facility] [place] [address] OPERATIVE REPORT Name: NEDRAMIGDALIA ALLYSSA Room #: REG [facility]#: [id number] Admission: 09/09/18 Attend Phys: Mesfin Zarate MD Discharge: Date of : 59 Report #: [id number] THIS REPORT FOR: //name// CC: Yuri Zarate DATE OF SERVICE: 09/09/2018 PROCEDURE: Diagnostic bronchoscopy. CLINICAL HISTORY: A 63-year-old -Turkmen female with persistent ground glass opacities. Diagnostic bronchoscopy was performed. POSTOPERATIVE DIAGNOSES: 1. Normal airways. 2. Bronchial lavage, right middle lobe. DESCRIPTION OF PROCEDURE: Following obtained consent, risks and benefits been explained to the patient, which include infection, bleeding, pneumothorax, the procedure performed in the endoscopy suite. The patient received total of 6 mg of Versed and 100 mcg of fentanyl. She also received aerosolized 2% lidocaine. Then, a flexible fiberoptic bronchoscope was then introduced without difficulty. The epiglottis was normal. The vocal cords were normal. Trachea was normal, kristina was normal. Right mainstem bronchus, right upper lobe, right middle lobe and right lower lobe was normal. Left main stem bronchus, left upper lobe and left lower lobe was also normal. Bronchoalveolar lavage was performed in the right middle lobe. Five aliquots of 20 mL was used. There was adequate return in the sputum specimen container. The patient tolerated the procedure well. No complications noted. Saturation and vital signs throughout the procedure were normal. The bronchial lavage specimen will be sent for microbiologic studies, CBC with cell count along with cytology. <ELECTRONICALLY SIGNED> By: Mesfin Zarate MD 09/10/18 1641 1640 1732 Mesfin Zarate MD /nt
--- NOTE | ~2018-09-09 | PATH ---
[facility] [address] [place] [address] PATHOLOGY RPT PROCEDURE Name: MIGDALIA SNEED Room #: REG CRISTINE Blum.#: [id number] Admission: 09/09/18 Date of : 59 Discharge: Report #: [id number] Path Case #: [id number] Note [facility] Accession Number: [id number] TESTS RESULT FLAG UNITS REF RANGE LAB Clinician Provided Cytology Information No. of containers..01 Other (Miscellaneous) Source: 01 RML BAL DIAGNOSIS: 02 RML BAL NEGATIVE FOR MALIGNANT CELLS. PULMONARY MACROPHAGES PRESENT, INDICATIVE OF LOWER RESPIRATORY TRACT SAMPLING. REACTIVE BRONCHIAL CELLS ARE PRESENT. Signed out by: 02 Rangel Erwin MD, Pathologist NPI- [id number] Performed by: 01 Lary Hoffman, Optical Goods Drilling Machine Operator ([facility]) Gross description: 01 8ML, COLORLESS, CLOUDY /LCS FLAG LEGEND: L-Low Normal,H-High Normal,LL-Alert Low,HH-Alert High <-Panic Low,>-Panic High,A-Abnormal,AA-Critical Abnormal Performed at: [address] [place] [address] Georges Shea MD, [address] [address] Idalia Harper MD, Performed at: [address], [place], [place] [id number] MD Georges Shea MD Phone: [phone]
[2018-09-09 11:08] LABS: BF NUCLEATED CELLS 522; BF RBC 1028
[2018-09-09 11:10] LABS: CLARITY SLIGHTLY CLOUDY; COLOR TAN; SOURCE BRONCH WASH
[2018-09-09 11:21] LABS: TOTAL VOLUME 12 mL
[2018-09-09 13:17] LABS: BF MACROPHAGE 86; BF NEUTROPHILS 4
== END | disposition home or self-care (01) ==
LOC: CATH 06:59
PROVIDERS: Internal Medicine Pulmonary Disease
DX: J18.9 Pneumonia, unspecified organism (principal); K21.9 Gastro-esophageal reflux disease without esophagitis; K44.9 Diaphragmatic hernia without obstruction or gangrene; J44.9 Chronic obstructive pulmonary disease, unspecified; M19.90 Unspecified osteoarthritis, unspecified site; F41.9 Anxiety disorder, unspecified; E78.00 Pure hypercholesterolemia, unspecified; Z88.8 Allergy status to other drugs, medicaments and biological substances; Z79.899 Other long term (current) drug therapy; Z79.82 Long term (current) use of aspirin; Z90.710 Acquired absence of both cervix and uterus; Z90.49 Acquired absence of other specified parts of digestive tract; Z98.890 Other specified postprocedural states; Z86.73 Personal history of transient ischemic attack (TIA), and cerebral infarction without residual deficits

== ENCOUNTER 2018-09-18 11:04 | Emergency (ER) | payer OTHER ==
[~2018-09-18] VITALS: Ht 170.2 cm; Wt 104.3 kg
[2018-09-18 11:20] LABS: URINE BILIRUBIN NEGATIVE (Negative); URINE BLOOD NEGATIVE (Negative); URINE CLARITY CLEAR; URINE COLOR YELLOW; URINE GLUCOSE-RANDOM* NEGATIVE (Negative); URINE KETONES NEGATIVE (Negative); URINE NITRITE-REFLEX NEGATIVE (Negative); URINE PROTEIN (DIPSTICK) NEGATIVE (Negative); URINE SPECIFIC GRAVITY <= 1.005 (1.005-1.035); URINE UROBILINOGEN 0.2 E.U./dl (0.2-1.0)
[2018-09-18 11:21] LABS: URINE LEUKOCYTES-REFLEX 1+ (Negative)
[2018-09-18 11:39] LABS: CASTS None Seen /LPF (None Seen); CRYSTALS None Seen /LPF (None Seen); SQUAMOUS 4-10 Moderate /LPF (0-3); URINE RBC >20 Many /HPF (0-2); URINE WBC-REFLEX 0-5 Rare /HPF (0-5)
[2018-09-18 12:35] LABS: ABSOLUTE NEUTROPHILS 3.7 thou/uL (1.4-8.2); BASOPHILS 0.9 % (0.0-2.0); EOSINOPHILS 2.4 % (0.0-3.0); HEMATOCRIT 37.6 % (37.0-47.0); HEMOGLOBIN 12.6 gm/dL (12.0-15.0); LYMPHOCYTES 37.7 % (24.0-44.0); MCH 29.7 pg (26.0-34.0); MCHC 33.6 g/dL (28.0-37.0); MCV 88.3 fL (80.0-100.0); MONOCYTES 6.2 % (1.0-8.0); PLATELET COUNT 451 thou/uL (150-400); POLYS 52.8 % (36.0-66.0); RBC 4.25 mil/uL (4.20-5.00); RDW 15.4 % (10.5-14.5); WBC 7.1 thou/uL (4.0-11.0)
[2018-09-18 12:41] LABS: CALCIUM 9.2 mg/dL (8.5-10.1); CREATININE 0.9 mg/dL (0.6-1.0); POTASSIUM 3.9 mmol/L (3.5-5.1)
[2018-09-18 12:48] LABS: ALBUMIN 3.1 g/dL (3.4-5.0); MAGNESIUM 1.6 mg/dL (1.8-2.4); TOTAL BILIRUBIN 0.2 mg/dL (<0.1-1.0)
[2018-09-18] MEDS ORDERED: CEFPODOXIME PR100 MG PO (15:07)
== END 2018-09-18 15:35 | disposition home or self-care (01) ==
LOC: ER 11:04
PROVIDERS: Physician Assistant
DX: N39.0 Urinary tract infection, site not specified (principal); E83.42 Hypomagnesemia; R25.2 Cramp and spasm; M79.10 Myalgia, unspecified site; M79.605 Pain in left leg; E78.5 Hyperlipidemia, unspecified; K21.9 Gastro-esophageal reflux disease without esophagitis; I50.9 Heart failure, unspecified; F17.210 Nicotine dependence, cigarettes, uncomplicated; Z90.49 Acquired absence of other specified parts of digestive tract; Z90.710 Acquired absence of both cervix and uterus; Z86.73 Personal history of transient ischemic attack (TIA), and cerebral infarction without residual deficits; Z88.5 Allergy status to narcotic agent; Z88.8 Allergy status to other drugs, medicaments and biological substances

== ENCOUNTER 2018-09-29 09:26 | Emergency (ER) | payer OTHER ==
[~2018-09-29] VITALS: Ht 170.2 cm; Wt 103.4 kg
[~2018-09-29 09:26] MED LIST changes: +CEFPODOXIME PR100 MG PO
[2018-09-29 10:26] LABS: ABSOLUTE NEUTROPHILS 10.3 thou/uL (1.4-8.2); BASOPHILS 0.6 % (0.0-2.0); EOSINOPHILS 0.5 % (0.0-3.0); HEMATOCRIT 40.4 % (37.0-47.0); HEMOGLOBIN 13.7 gm/dL (12.0-15.0); LYMPHOCYTES 16.5 % (24.0-44.0); MCH 29.8 pg (26.0-34.0); MCHC 33.8 g/dL (28.0-37.0); MONOCYTES 6.3 % (1.0-8.0); PLATELET COUNT 378 thou/uL (150-400); POLYS 76.1 % (36.0-66.0); RBC 4.59 mil/uL (4.20-5.00); RDW 15.3 % (10.5-14.5); WBC 13.5 thou/uL (4.0-11.0)
[2018-09-29 10:29] LABS: CALCIUM 9.4 mg/dL (8.5-10.1); CREATININE 1.2 mg/dL (0.6-1.0); POTASSIUM 3.4 mmol/L (3.5-5.1)
[2018-09-29 10:35] LABS: ALBUMIN 3.5 g/dL (3.4-5.0); TOTAL BILIRUBIN 0.2 mg/dL (<0.1-1.0); TOTAL PROTEIN 7.6 g/dL (6.4-8.2)
[2018-09-29 11:00] LABS: URINE BILIRUBIN NEGATIVE (Negative); URINE BLOOD NEGATIVE (Negative); URINE CLARITY CLEAR; URINE COLOR YELLOW; URINE GLUCOSE-RANDOM* NEGATIVE (Negative); URINE KETONES TRACE (Negative); URINE LEUKOCYTES-REFLEX NEGATIVE (Negative); URINE NITRITE-REFLEX NEGATIVE (Negative); URINE PROTEIN (DIPSTICK) TRACE (Negative); URINE SPECIFIC GRAVITY >= 1.030 (1.005-1.035); URINE UROBILINOGEN 0.2 E.U./dl (0.2-1.0)
[2018-09-29] MEDS ORDERED: ZOFRAN ODT8 MG PO (12:20)
[2018-09-29 12:37] VITALS: BP 120/71
== END 2018-09-29 15:14 | disposition home or self-care (01) ==
LOC: ER 09:26
PROVIDERS: Emergency Medicine
DX: R11.2 Nausea with vomiting, unspecified (principal); R10.13 Epigastric pain; F17.210 Nicotine dependence, cigarettes, uncomplicated; Z88.5 Allergy status to narcotic agent; Z88.8 Allergy status to other drugs, medicaments and biological substances; E78.5 Hyperlipidemia, unspecified; K21.9 Gastro-esophageal reflux disease without esophagitis; Z90.49 Acquired absence of other specified parts of digestive tract; K86.1 Other chronic pancreatitis; Z90.710 Acquired absence of both cervix and uterus; Z86.73 Personal history of transient ischemic attack (TIA), and cerebral infarction without residual deficits; K31.84 Gastroparesis; F41.9 Anxiety disorder, unspecified; I50.9 Heart failure, unspecified; Z90.11 Acquired absence of right breast and nipple; K58.9 Irritable bowel syndrome, unspecified

== ENCOUNTER → 2018-10-28 | Outpatient (CLI) | payer OTHER ==
[~2018-10-28] MED LIST changes: +ZOFRAN ODT8 MG PO
== END ==
LOC: CAT 08:31
DX: Z12.31 Encounter for screening mammogram for malignant neoplasm of breast (principal); J43.2 Centrilobular emphysema; I25.10 Atherosclerotic heart disease of native coronary artery without angina pectoris; J18.9 Pneumonia, unspecified organism; R91.8 Other nonspecific abnormal finding of lung field; Z87.891 Personal history of nicotine dependence

== ENCOUNTER → 2018-11-01 | Outpatient (CLI) | payer OTHER | LOC: RAD 08:34 | DX: Z13.6 Encounter for screening for cardiovascular disorders (principal); E78.00 Pure hypercholesterolemia, unspecified ==

== ENCOUNTER 2018-11-17 10:45 | Emergency (ER) | payer OTHER ==
[~2018-11-17] VITALS: Ht 170.2 cm; Wt 103.4 kg
[2018-11-17 11:06] LABS: URINE BILIRUBIN NEGATIVE (Negative); URINE BLOOD NEGATIVE (Negative); URINE CLARITY CLEAR; URINE COLOR YELLOW; URINE GLUCOSE-RANDOM* NEGATIVE (Negative); URINE KETONES NEGATIVE (Negative); URINE LEUKOCYTES-REFLEX NEGATIVE (Negative); URINE NITRITE-REFLEX NEGATIVE (Negative); URINE PROTEIN (DIPSTICK) NEGATIVE (Negative); URINE SPECIFIC GRAVITY <= 1.005 (1.005-1.035); URINE UROBILINOGEN 0.2 E.U./dl (0.2-1.0)
[2018-11-17 12:08] LABS: ABSOLUTE NEUTROPHILS 4.3 thou/uL (1.4-8.2); BASOPHILS 0.7 % (0.0-2.0); HEMATOCRIT 35.7 % (37.0-47.0); LYMPHOCYTES 38.6 % (24.0-44.0); MCH 29.4 pg (26.0-34.0); MCHC 33.6 g/dL (28.0-37.0); MCV 87.4 fL (80.0-100.0); MONOCYTES 6.1 % (1.0-8.0); PLATELET COUNT 342 thou/uL (150-400); POLYS 53.6 % (36.0-66.0); RBC 4.08 mil/uL (4.20-5.00); RDW 15.9 % (10.5-14.5); WBC 7.9 thou/uL (4.0-11.0)
[2018-11-17 12:20] LABS: CALCIUM 8.8 mg/dL (8.5-10.1); CREATININE 0.8 mg/dL (0.6-1.0); POTASSIUM 3.8 mmol/L (3.5-5.1)
[2018-11-17 12:25] LABS: ALBUMIN 3.1 g/dL (3.4-5.0); TOTAL BILIRUBIN 0.2 mg/dL (<0.1-1.0); TOTAL PROTEIN 6.2 g/dL (6.4-8.2)
[2018-11-17] MEDS ORDERED: FLOMAX0.4 MG PO (12:50)
[2018-11-17] MEDS ORDERED: CLOTRIMAZOLE 1%15 G1 TOP (12:50)
[2018-11-17 13:27] VITALS: BP 132/89
== END 2018-11-17 13:30 | disposition home or self-care (01) ==
LOC: ER 10:45
PROVIDERS: Physician Assistant
DX: R33.9 Retention of urine, unspecified (principal); L98.498 Non-pressure chronic ulcer of skin of other sites with other specified severity; L30.4 Erythema intertrigo; F41.9 Anxiety disorder, unspecified; I50.9 Heart failure, unspecified; K58.9 Irritable bowel syndrome, unspecified; F17.210 Nicotine dependence, cigarettes, uncomplicated; E78.5 Hyperlipidemia, unspecified; K21.9 Gastro-esophageal reflux disease without esophagitis; K86.1 Other chronic pancreatitis; Z90.49 Acquired absence of other specified parts of digestive tract; Z90.710 Acquired absence of both cervix and uterus; Z86.73 Personal history of transient ischemic attack (TIA), and cerebral infarction without residual deficits; Z88.5 Allergy status to narcotic agent; Z88.8 Allergy status to other drugs, medicaments and biological substances; Z90.11 Acquired absence of right breast and nipple

== ENCOUNTER 2018-11-22 11:15 | Emergency (ER) | payer OTHER ==
[~2018-11-22] VITALS: Ht 170.2 cm; Wt 104.8 kg
[~2018-11-22 11:15] MED LIST changes: +CLOTRIMAZOLE 1%15 G1 TOP
[2018-11-22] MEDS ORDERED: ACYCLOVIR 400400 MG PO (11:28)
[2018-11-22] MEDS ORDERED: ANORO ELLIPTA1 EACH INH (11:28)
[2018-11-22] MEDS ORDERED: LASIX 40 MG TAB40 M2 PO (11:31)
[2018-11-22] MEDS ORDERED: ATIVAN1 MG PO (11:32)
[2018-11-22] MEDS ORDERED: B & O SUPPRETT1 EAC1 RECTAL (11:33)
[2018-11-22 12:20] LABS: ABSOLUTE NEUTROPHILS 5.9 thou/uL (1.4-8.2); BASOPHILS 0.6 % (0.0-2.0); EOSINOPHILS 0.6 % (0.0-3.0); HEMOGLOBIN 12.4 gm/dL (12.0-15.0); LYMPHOCYTES 26.9 % (24.0-44.0); MCH 28.8 pg (26.0-34.0); MCHC 32.7 g/dL (28.0-37.0); MCV 88.3 fL (80.0-100.0); MONOCYTES 6.2 % (1.0-8.0); PLATELET COUNT 369 thou/uL (150-400); POLYS 65.7 % (36.0-66.0); RBC 4.31 mil/uL (4.20-5.00); RDW 16.1 % (10.5-14.5)
[2018-11-22 12:28] LABS: CALCIUM 9.6 mg/dL (8.5-10.1); CREATININE 0.9 mg/dL (0.6-1.0); POTASSIUM 3.7 mmol/L (3.5-5.1)
[2018-11-22 12:34] LABS: ALBUMIN 3.5 g/dL (3.4-5.0); TOTAL BILIRUBIN 0.2 mg/dL (<0.1-1.0); TOTAL PROTEIN 7.1 g/dL (6.4-8.2)
[2018-11-22 12:40] LABS: URINE CLARITY CLEAR; URINE COLOR YELLOW
[2018-11-22 12:41] LABS: URINE BILIRUBIN NEGATIVE (Negative); URINE BLOOD NEGATIVE (Negative); URINE GLUCOSE-RANDOM* NEGATIVE (Negative); URINE KETONES NEGATIVE (Negative); URINE LEUKOCYTES-REFLEX NEGATIVE (Negative); URINE NITRITE-REFLEX NEGATIVE (Negative); URINE PROTEIN (DIPSTICK) NEGATIVE (Negative); URINE SPECIFIC GRAVITY >= 1.030 (1.005-1.035); URINE UROBILINOGEN 0.2 E.U./dl (0.2-1.0)
[2018-11-22] MEDS ORDERED: BACTROBAN CREAM30 G1 TOP (13:38)
[2018-11-22 14:10] VITALS: BP 119/74
== END 2018-11-22 14:11 | disposition home or self-care (01) ==
LOC: ER 11:15
PROVIDERS: Physician Assistant
DX: Z48.01 Encounter for change or removal of surgical wound dressing (principal); R10.31 Right lower quadrant pain; F17.210 Nicotine dependence, cigarettes, uncomplicated; E78.5 Hyperlipidemia, unspecified; K21.9 Gastro-esophageal reflux disease without esophagitis; K86.1 Other chronic pancreatitis; F41.9 Anxiety disorder, unspecified; K31.84 Gastroparesis; I50.9 Heart failure, unspecified; K58.9 Irritable bowel syndrome, unspecified; Z88.5 Allergy status to narcotic agent; Z90.49 Acquired absence of other specified parts of digestive tract; Z90.710 Acquired absence of both cervix and uterus; Z86.73 Personal history of transient ischemic attack (TIA), and cerebral infarction without residual deficits; Z88.8 Allergy status to other drugs, medicaments and biological substances; Z90.11 Acquired absence of right breast and nipple

== ENCOUNTER → 2018-11-27 | Outpatient (CLI) | payer OTHER ==
[~2018-11-27] MED LIST changes: +ATIVAN1 MG PO; +B & O SUPPRETT1 EAC1 RECTAL; +BACTROBAN CREAM30 G1 TOP; +LASIX 40 MG TAB40 M2 PO
== END ==
LOC: HYPER 07:17
DX: S31.103A Unspecified open wound of abdominal wall, right lower quadrant without penetration into peritoneal cavity, initial encounter (principal); E78.5 Hyperlipidemia, unspecified; I50.9 Heart failure, unspecified; J42 Unspecified chronic bronchitis; K21.9 Gastro-esophageal reflux disease without esophagitis; K86.1 Other chronic pancreatitis; K31.84 Gastroparesis; R21 Rash and other nonspecific skin eruption; F41.9 Anxiety disorder, unspecified; F17.200 Nicotine dependence, unspecified, uncomplicated; Z90.710 Acquired absence of both cervix and uterus; X58.XXXA Exposure to other specified factors, initial encounter; Y93.89 Activity, other specified; Y92.89 Other specified places as the place of occurrence of the external cause; Y99.8 Other external cause status

== ENCOUNTER 2018-12-09 07:11 | Emergency (ER) | payer OTHER ==
[~2018-12-09] VITALS: Ht 162.6 cm; Wt 90.7 kg
[2018-12-09 09:06] VITALS: BP 118/73
== END 2018-12-09 10:00 | disposition home or self-care (01) ==
LOC: ER 07:11
DX: Q39.4 Esophageal web (principal); K22.4 Dyskinesia of esophagus; R13.10 Dysphagia, unspecified; F17.210 Nicotine dependence, cigarettes, uncomplicated; E78.5 Hyperlipidemia, unspecified; K21.9 Gastro-esophageal reflux disease without esophagitis; K86.1 Other chronic pancreatitis; F41.9 Anxiety disorder, unspecified; I50.9 Heart failure, unspecified; K31.84 Gastroparesis; K58.9 Irritable bowel syndrome, unspecified; Z88.5 Allergy status to narcotic agent; Z88.8 Allergy status to other drugs, medicaments and biological substances; Z90.11 Acquired absence of right breast and nipple; Z90.49 Acquired absence of other specified parts of digestive tract; Z90.710 Acquired absence of both cervix and uterus; Z86.73 Personal history of transient ischemic attack (TIA), and cerebral infarction without residual deficits
CPT/HCPCS: 62110; 62900

== ENCOUNTER → 2018-12-16 | Outpatient (CLI) | payer OTHER ==
[~2018-12-16] MED LIST changes: +ERYTHROMYCIN250 M1 PO
== END ==
LOC: HYPER 06:57
DX: S31.103A Unspecified open wound of abdominal wall, right lower quadrant without penetration into peritoneal cavity, initial encounter (principal); E78.5 Hyperlipidemia, unspecified; I50.9 Heart failure, unspecified; J42 Unspecified chronic bronchitis; K21.9 Gastro-esophageal reflux disease without esophagitis; K86.1 Other chronic pancreatitis; K31.84 Gastroparesis; F41.9 Anxiety disorder, unspecified; F17.200 Nicotine dependence, unspecified, uncomplicated; X58.XXXA Exposure to other specified factors, initial encounter; Y93.89 Activity, other specified; Y92.89 Other specified places as the place of occurrence of the external cause; Y99.8 Other external cause status

== ENCOUNTER 2018-12-17 05:56 | Emergency (ER) | payer OTHER ==
[~2018-12-17] VITALS: Ht 170.2 cm; Wt 104.3 kg
[~2018-12-17 05:56] MED LIST changes: -ERYTHROMYCIN250 M1 PO
[2018-12-17] MEDS ORDERED: ERYTHROMYCIN250 M1 PO (06:11)
[2018-12-17 08:28] VITALS: BP 124/67
== END 2018-12-17 08:28 | disposition home or self-care (01) ==
LOC: ER 05:56
DX: K20.9 Esophagitis, unspecified (principal); E78.5 Hyperlipidemia, unspecified; K21.9 Gastro-esophageal reflux disease without esophagitis; I50.9 Heart failure, unspecified; F17.210 Nicotine dependence, cigarettes, uncomplicated; Z88.5 Allergy status to narcotic agent; Z88.8 Allergy status to other drugs, medicaments and biological substances

== ENCOUNTER 2019-01-13 11:21 | Inpatient (IN) | payer OTHER ==
[~2019-01-13] VITALS: Ht 170.2 cm; Wt 102.1 kg
[2019-01-13 11:21] VITALS: BP 118/77
[~2019-01-13 11:21] MED LIST changes: +ERYTHROMYCIN250 M1 PO; +KLOR-CON 1010 MEQ PO; -POTASSIUM20 PO; -PROAIR HFA8.5 GM INH
[2019-01-13 11:48] LABS: URINE BILIRUBIN NEGATIVE (Negative); URINE BLOOD NEGATIVE (Negative); URINE CLARITY CLEAR; URINE COLOR YELLOW; URINE GLUCOSE-RANDOM* NEGATIVE (Negative); URINE KETONES NEGATIVE (Negative); URINE LEUKOCYTES-REFLEX NEGATIVE (Negative); URINE NITRITE-REFLEX NEGATIVE (Negative); URINE PROTEIN (DIPSTICK) NEGATIVE (Negative); URINE SPECIFIC GRAVITY 1.025 (1.005-1.035); URINE UROBILINOGEN 0.2 E.U./dl (0.2-1.0)
--- NOTE | 2019-01-13 11:50 | NUR ---
PT STATES TO THIS FOOD MIXER "IF THERE IS A REAL DOCTOR HERE, I'M SUPPOSED TO SEE THEM. IT SHOULD BE IN MY CHART!"
[2019-01-13 11:55] LABS: ABSOLUTE NEUTROPHILS 4.4 thou/uL (1.4-8.2); BASOPHILS 0.9 % (0.0-2.0); EOSINOPHILS 1.8 % (0.0-3.0); HEMATOCRIT 40.2 % (37.0-47.0); HEMOGLOBIN 13.6 gm/dL (12.0-15.0); LYMPHOCYTES 39.7 % (24.0-44.0); MCH 29.6 pg (26.0-34.0); MCHC 33.8 g/dL (28.0-37.0); MCV 87.6 fL (80.0-100.0); MONOCYTES 6.6 % (1.0-8.0); PLATELET COUNT 361 thou/uL (150-400); RBC 4.59 mil/uL (4.20-5.00); RDW 17.5 % (10.5-14.5); WBC 8.7 thou/uL (4.0-11.0)
[2019-01-13 12:12] LABS: ANION GAP 12 mmol/L (7-16); BUN 11 mg/dL (7-18); CALCIUM 9.5 mg/dL (8.5-10.1); CHLORIDE 104 mmol/L (98-107); CO2 26 mmol/L (21-32); CREATININE 1.1 mg/dL (0.6-1.0); GLUCOSE 96 mg/dL (74-106); POTASSIUM 3.6 mmol/L (3.5-5.1); SODIUM 142 mmol/L (136-145)
[2019-01-13 12:17] LABS: ALBUMIN 3.9 g/dL (3.4-5.0); LIPASE 73 U/L (73-393); SGOT 17 U/L (15-37); SGPT 20 U/L (30-65); TOTAL BILIRUBIN 0.3 mg/dL (<0.1-1.0); TOTAL PROTEIN 7.5 g/dL (6.4-8.2); TROPONIN-I <0.06 ng/mL (<0.06)
[2019-01-13] MEDS ORDERED: FLOMAX0.4 MG PO ×2 (14:14)
[2019-01-13] MEDS ORDERED: ZANAFLEX4 MG PO ×2 (14:14)
[2019-01-13 14:15] VITALS: BP 120/56
[2019-01-13] MEDS ORDERED: PROMS25 WY RECTAL ×2 (14:15)
[2019-01-13 15:18] VITALS: BP 114/67
[2019-01-13 16:11] VITALS: BP 121/80
--- NOTE | 2019-01-13 17:14 | NUR ---
ADMISSION ASSESEMNT COMPLETED. VSS. A/O. PAIN MANAGED BY MEDS ORDERED. NO NOTED SOA. NO NV. PT RESTING IN BED AT THIS TIME. UP AD ROXANNE. NPO AT LA FOR EGD WYATT. WILL CONT. TO MONITOR.
[2019-01-13 19:24] VITALS: BP 118/70
--- NOTE | 2019-01-14 02:58 | NUR ---
PT C/O GEN ABD PAIN AND NAUSEA,MANAGED WITH IV MED.PT UP ADLIB IN HER ROOM.PT NPO AT THIS TIME FOR A PROCEDURE IN THE AM.PT RESTING COMFORTABLY AT THIS TIME ON HER BED.CALL LIGHT WITHIN REACH.
[2019-01-14 04:58] VITALS: BP 115/48
[2019-01-14 07:58] VITALS: BP 108/144
--- NOTE | 2019-01-14 08:59 | EKG ---
[place] [address] [facility] [place] [address] ELECTROCARDIOGRAM REPORT Name: NEDRAMIGDALIACATE SPIVEY Room #: 422-P ADM IN M.R.#: [id number] ������������������ Admission: 01/13/19 ������������������ Attend Phys: Yuri Walter MD Discharge: ������������������ Date of : 59 Report #: [id number] ����������������������������������������������������������������� [id number] THIS REPORT FOR: //name// 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 etienne : 1955 Requested By: Kassie Holcomb Order Number: [id number] MD: Eduardo Guy Measurements Intervals [place] Rate: 70 P: 74 [place]: 180 QRS: 60 QRSD: 76 T: 33 QT: 398 QTc: 430 Interpretive Statements Sinus rhythm Normal tracing Compared to ECG 09/05/2018 08:25:47 No significant changes Electronically Signed On 01-14-2019 8:59:18 BLADDER BLOWER by Eduardo Guy [email or web address] ��������������������������������������������� <ELECTRONICALLY SIGNED> ���������������������������������������� By: Eduardo Guy MD, [facility] ��������������������������������������������� 01/14/19 0859 1329 1329 Eduardo Guy MD, FAC /EPI
[2019-01-14 12:25] VITALS: BP 118/77
--- NOTE | 2019-01-14 13:04 | NUR ---
ASSESSMENT-PT LIVES AT HOME WITH HER . PT IS INDEPENDENT OF ADLS AND AMBULATION. PT ASKING ABOUT GETTING A HANDICAPPED STICKER. GAVE HER THE APPLICATION TO HAVE DR NICOLE COMPLETE FOR HER TO GET A HANDICAP STICKER. PT HAD EGD WITH DILATATION TODAY. FOLLOWING TO ASSIST WITH DC PLANNING. NO DC NEEDS ANTICIPATED. PT HAS O2 FROM [facility] AT HOME AND HAS BEEN ON SERVICE WITH [facility] IN THE PAST.
--- NOTE | 2019-01-14 14:21 | NUR ---
PATIENT ADMITTED FOR WEAKNESS AND SEVERE ABDOMINAL PAIN. PATIENT HAS COMPLAINED OF NAUSEA AND PAIN THROUGHOUT THE DAY. HAD AN EDG PROCEDURE. AFTER THE PROCEDURE DRANK CHICKEN BROTH AND TEA, STILL COMPLAINING OF NAUSEA.
[2019-01-14 14:34] VITALS: BP 128/63
--- NOTE | 2019-01-14 14:53 | NUR ---
I have reviewed and concur with student documentation.
[2019-01-14 19:05] VITALS: BP 140/79
--- NOTE | 2019-01-14 23:22 | NUR ---
PT C/O ABD PAIN AND N/V,MANAGED WITH MEDICATION.UP ADLIB IN ROOM.PT NOT TOLERATING PO FLUIDS WELL,NAUSEOUS.PT WILL BE NPO AFTER MN FOR A PROCEDURE IN THE AM.PT C/O ITCHING ON HER BACK,PT STATED THAT IT MIGHT BE HER SHINGLES COMING BACK.PT RESTING ON HER BED AT THIS TIME.CALL LIGHT WITHIN REACH.
[2019-01-15 07:32] VITALS: BP 106/68
--- NOTE | 2019-01-15 14:21 | NUR ---
Assumed pt care at 7am.Pt in and out of bed independently.Assessment completed.Pt has numerous c/o such as nausea,generalized abdominal pain and lack of appetite.Medication given for all above but pt can't get relief from abdominal pain.Stefania soto notified and order noted.Gi cocktail given as ordered.Gastric emptying study cancelled for today.Dr Walter rounded on pt earlier today and wanted to be notify for dc home later today after gi rounded on pt this afternoon.Will continue to monitor.
--- NOTE | 2019-01-15 18:16 | NUR ---
PATIENT TRANSFERRED FROM 422 TO SICU 227 AT 1630, TRANSPORT BROUGHT PATIENT PER WHEELCHAIR, CHEST PORT INTACT WITH SINGLE LUMEN, PATIENT UP AD ROXANNE AMBULATING INDEPENDENTLY, ORIENTED TO STAFF AND ROOM, PERSONAL BELONGINGS AND CALL LIGHT SET IN REACH
[2019-01-15 22:00] VITALS: BP 132/78
--- NOTE | 2019-01-16 04:29 | NUR ---
Patient remains A&Ox4; Swallows meds whole w/o difficulty. Remains cont. B&B. ambulates independently; gait steady. Remains on clear liquid diet; No c/o N/V, at this time. Defib implant noted to L chest wall. Port - a - cath noted to R chest wall. Last BM 01/14/19, per patient. Patient has no c/o pain or discomfort, at this time. No s/s of acute distress noted. Patient in bed w/ call light/desired belongings within reach. Po fluids encouraged. Will continue to monitor.
[2019-01-16 07:24] VITALS: BP 149/63
--- NOTE | 2019-01-16 07:29 | NUR ---
ASSUMED PT CARE AT 0700. ASSESSMENT COMPLETED AND IS CHARTED. VSS. PT IS AWAKE, ALERT/ORIENTED X4, PLEASANT,TALKATIVE. PT REPORTS NAUSEA AND PAIN TO ABDOMEN ALL OVER. PHENERGAN SUPPOSITORY GIVEN PER REQUEST. RIGHT CHEST ANGEL-CATH ACCESSED BUT WET FROM SHOWER SO DRESSING CHANGED. NO NEW CONCERNS OR COMPLAINTS AT THIS TIME. WILL CONTINUE WITH CURRENT CARE.
[2019-01-16 08:11] VITALS: BP 149/63
--- NOTE | 2019-01-16 09:31 | NUR ---
DISMISSAL INSTRUCTIONS GIVEN. ANGEL-CATH DEACCESSED, FLUSHED WITH NS AND HEPARIN PER PROTOCOL. DISMISSED PT AMBULATORY WITH .
--- NOTE | 2019-01-16 10:45 | NUR ---
DISCHARGE NOTE: SW reviewed chart and spoke with nursing. Pt [facility] to [facility] from and is medically stable for discharge home today. No discharge needs identified at this time, but is available to assist should needs arise.
--- NOTE | 2019-01-16 12:10 | PATH ---
[facility] [address] [place] [address] PATHOLOGY RPT PROCEDURE Name: JUVE SNEEDN ALLYSSA Room #: 227-P DIS IN M.R.#: [id number] ������������������ Admission: 01/13/19 ������������������ Date of : 59 Discharge: 01/16/19 Report #: [id number] Path Case #: [id number] [facility] Accession Number: [id number] . 01 Material submitted: . PART A: ANTRUM BIOPSY PART B: DISTAL ESOPHAGUS BIOPSY PART C: MID ESOPHAGUS BIOPSY . 01 Clinical history: . Dysphagia Esophageal stricture, dysphagia A: Rule out H. pylori B and C: Rule out EOE . 02 Diagnosis: A. Gastric mucosa, antrum R/O H. pylori, endoscopic biopsy: - Moderate reactive gastropathy. - Negative for intestinal metaplasia or atrophy. - Negative for Helicobacter pylori (properly controlled immunohistochemical stain performed). . B. Squamous mucosa, distal esophagus R/O EOE, endoscopic biopsy: - Mild active esophagitis associated with rare to occasional eosinophils (less than 1/HPF). - Negative for intestinal metaplasia or dysplasia. . C. Squamous mucosa, mid esophagus R/O EOE, endoscopic biopsy: - Mild active esophagitis associated with rare to occasional eosinophils (less than 1/HPF). - Negative for intestinal metaplasia or dysplasia. (IUV:chago; 01/15/2019) QMS/01/15/2019 . 02 Electronically signed: . Idalia Harper MD, Pathologist NPI- [id number] . 01 Gross description: . A. The specimen is received in formalin, labeled "Gypsy Sneed, antrum biopsy" and consists of 2 soft fragments of bryan tissue measuring 0.3 x 0.2 cm and 0.4 x 0.3 x 0.1 cm. They are entirely submitted in A1. . B. The specimen is received in formalin, labeled "Gypsy Sneed, distal esophagus biopsy" and consists of 3 translucent fragments of bergeron-bryan tissue measuring between 0.2 x 0.1 cm and 0.4 x 0.3 cm. They are entirely submitted in B1. [address] [address] PATHOLOGY RPT PROCEDURE Name: GYPSY SNEED Room #: 227-P DIS IN M.R.#: [id number] ������������������ Admission: 01/13/19 ������������������ Date of : 59 Discharge: 01/16/19 Report #: [id number] Path Case #: [id number] . C. The specimen is received in formalin, labeled "Jett, Gypsy, mid esophagus biopsy" and consists of 2 translucent fragments of bergeron-bryan tissue measuring 0.4 x 0.3 cm and 0.5 x 0.3 x 0.1 cm. They are entirely submitted in C1. (SDY; 01/14/2019) SYU/SYU . 02 Pathologist provided ICD-10: K31.9, K20.9 . 02 CPT . 555478, 356209, 653260, E67441 Specimen Comment: A courtesy copy of this report has been sent to Specimen Comment: [phone], . Specimen Comment: Report sent to / DR NICOLE Specimen Comment: A duplicate report has been generated due to demographic updates. Performed at: [address], [place] [id number] MD Georges Shea MD Phone: [phone] Performed at: [address] [id number] MD Idalia Harper MD Phone: [phone]
== END 2019-01-16 10:53 | disposition home or self-care (01) | DRG 392 ==
LOC: ER 11:21 → 4E 13:23 → EROBS 13:23 → 4E 15:14 → SICU 01-15 16:53
PROVIDERS: Physician Assistant; ADMIT Family Medicine
DX: K22.2 Esophageal obstruction (principal); K86.1 Other chronic pancreatitis; K31.84 Gastroparesis; R13.13 Dysphagia, pharyngeal phase; K21.9 Gastro-esophageal reflux disease without esophagitis; E78.5 Hyperlipidemia, unspecified; F41.9 Anxiety disorder, unspecified; I50.9 Heart failure, unspecified; R10.9 Unspecified abdominal pain; K22.0 Achalasia of cardia; M19.90 Unspecified osteoarthritis, unspecified site; E78.00 Pure hypercholesterolemia, unspecified; K58.9 Irritable bowel syndrome, unspecified; F17.210 Nicotine dependence, cigarettes, uncomplicated; G89.4 Chronic pain syndrome; Z90.49 Acquired absence of other specified parts of digestive tract; Z86.73 Personal history of transient ischemic attack (TIA), and cerebral infarction without residual deficits; Z88.6 Allergy status to analgesic agent; Z88.8 Allergy status to other drugs, medicaments and biological substances; Z86.010 Personal history of colon polyps
CPT/HCPCS: 10084; 15002; 62110; 62900; 70005

== ENCOUNTER 2019-01-29 17:43 | Emergency (ER) | payer OTHER ==
[~2019-01-29] VITALS: Ht 170.2 cm; Wt 102.5 kg
[~2019-01-29 17:43] MED LIST changes: +ZANAFLEX4 MG PO
[2019-01-29] MEDS ORDERED: ANORO ELLIPTA1 EACH INH (18:36)
[2019-01-29 18:37] LABS: ABSOLUTE NEUTROPHILS 4.3 thou/uL (1.4-8.2); BASOPHILS 0.6 % (0.0-2.0); EOSINOPHILS 1.5 % (0.0-3.0); HEMATOCRIT 37.3 % (37.0-47.0); LYMPHOCYTES 35.6 % (24.0-44.0); MCH 28.2 pg (26.0-34.0); MCHC 32.2 g/dL (28.0-37.0); MCV 87.6 fL (80.0-100.0); MONOCYTES 7.1 % (1.0-8.0); PLATELET COUNT 387 thou/uL (150-400); POLYS 55.2 % (36.0-66.0); RBC 4.26 mil/uL (4.20-5.00); RDW 17.2 % (10.5-14.5); WBC 7.8 thou/uL (4.0-11.0)
[2019-01-29] MEDS ORDERED: HYDROCHLOROTHIA25 M2 PO (18:37)
[2019-01-29] MEDS ORDERED: TESSALON PERLE100 MG PO (18:37)
[2019-01-29] MEDS ORDERED: ANECREAM5 GM TOP (18:38)
[2019-01-29] MEDS ORDERED: BENTYL 10 MG CA10 MG PO (18:39)
[2019-01-29] MEDS ORDERED: MOBIC15 MG PO (18:39)
[2019-01-29 18:42] LABS: ANION GAP 11 mmol/L (7-16); BUN 8 mg/dL (7-18); CALCIUM 9.5 mg/dL (8.5-10.1); CHLORIDE 108 mmol/L (98-107); CO2 25 mmol/L (21-32); GLUCOSE 123 mg/dL (74-106); POTASSIUM 3.5 mmol/L (3.5-5.1); SODIUM 144 mmol/L (136-145)
[2019-01-29 18:47] LABS: LIPASE 89 U/L (73-393); SGOT 18 U/L (15-37); SGPT 20 U/L (30-65); TOTAL PROTEIN 6.5 g/dL (6.4-8.2)
[2019-01-29 18:58] LABS: DIRECT BILIRUBIN < 0.1 mg/dL (<0.1-0.3); TOTAL BILIRUBIN < 0.1 mg/dL (<0.1-1.0)
[2019-01-29 20:59] VITALS: BP 122/82
== END 2019-01-29 21:00 | disposition home or self-care (01) ==
LOC: ER 17:43
PROVIDERS: Emergency Medicine
DX: R10.84 Generalized abdominal pain (principal); E78.5 Hyperlipidemia, unspecified; K21.9 Gastro-esophageal reflux disease without esophagitis; F41.9 Anxiety disorder, unspecified; I50.9 Heart failure, unspecified; Z90.49 Acquired absence of other specified parts of digestive tract; Z90.710 Acquired absence of both cervix and uterus; F17.210 Nicotine dependence, cigarettes, uncomplicated; Z88.5 Allergy status to narcotic agent; Z88.8 Allergy status to other drugs, medicaments and biological substances

== ENCOUNTER 2019-01-31 13:49 | Emergency (ER) | payer OTHER ==
[~2019-01-31] VITALS: Ht 170.2 cm; Wt 106.6 kg
[~2019-01-31 13:49] MED LIST changes: +ANECREAM5 GM TOP; +BENTYL 10 MG CA10 MG PO
[2019-01-31 14:40] LABS: URINE BILIRUBIN NEGATIVE (Negative); URINE BLOOD NEGATIVE (Negative); URINE CLARITY CLEAR; URINE COLOR YELLOW; URINE GLUCOSE-RANDOM* NEGATIVE (Negative); URINE KETONES NEGATIVE (Negative); URINE LEUKOCYTES-REFLEX NEGATIVE (Negative); URINE NITRITE-REFLEX NEGATIVE (Negative); URINE PROTEIN (DIPSTICK) NEGATIVE (Negative); URINE SPECIFIC GRAVITY <= 1.005 (1.005-1.035); URINE UROBILINOGEN 0.2 E.U./dl (0.2-1.0)
[2019-01-31 15:09] LABS: ABSOLUTE NEUTROPHILS 4.2 thou/uL (1.4-8.2); BASOPHILS 0.8 % (0.0-2.0); EOSINOPHILS 1.7 % (0.0-3.0); HEMATOCRIT 38.5 % (37.0-47.0); HEMOGLOBIN 12.5 gm/dL (12.0-15.0); LYMPHOCYTES 35.5 % (24.0-44.0); MCH 28.5 pg (26.0-34.0); MCHC 32.5 g/dL (28.0-37.0); MCV 87.5 fL (80.0-100.0); MONOCYTES 6.8 % (1.0-8.0); PLATELET COUNT 405 thou/uL (150-400); POLYS 55.2 % (36.0-66.0); RDW 17.2 % (10.5-14.5); WBC 7.7 thou/uL (4.0-11.0)
[2019-01-31 15:16] LABS: CALCIUM 9.5 mg/dL (8.5-10.1); CREATININE 0.9 mg/dL (0.6-1.0); POTASSIUM 3.6 mmol/L (3.5-5.1)
[2019-01-31 15:22] LABS: ALBUMIN 3.2 g/dL (3.4-5.0); TOTAL BILIRUBIN 0.2 mg/dL (<0.1-1.0); TOTAL PROTEIN 6.8 g/dL (6.4-8.2)
[2019-01-31 16:13] VITALS: BP 119/79
== END 2019-01-31 16:14 | disposition home or self-care (01) ==
LOC: ER 13:49
PROVIDERS: Physician Assistant
DX: G89.29 Other chronic pain (principal); R10.84 Generalized abdominal pain; E78.5 Hyperlipidemia, unspecified; K21.9 Gastro-esophageal reflux disease without esophagitis; I50.9 Heart failure, unspecified; F41.9 Anxiety disorder, unspecified; Z90.49 Acquired absence of other specified parts of digestive tract; Z90.710 Acquired absence of both cervix and uterus; F17.210 Nicotine dependence, cigarettes, uncomplicated; Z88.5 Allergy status to narcotic agent; Z88.8 Allergy status to other drugs, medicaments and biological substances

== ENCOUNTER 2019-02-19 08:31 | Emergency (ER) | payer OTHER ==
[~2019-02-19] VITALS: Ht 170.2 cm; Wt 106.6 kg
[2019-02-19] MEDS ORDERED: PYRIDIUM200 MG PO ×2 (09:25)
[2019-02-19 09:46] VITALS: BP 115/77
== END 2019-02-20 08:34 | disposition home or self-care (01) ==
LOC: ER 08:31
DX: N30.90 Cystitis, unspecified without hematuria (principal); E78.5 Hyperlipidemia, unspecified; K21.9 Gastro-esophageal reflux disease without esophagitis; I50.9 Heart failure, unspecified; F41.9 Anxiety disorder, unspecified; Z90.49 Acquired absence of other specified parts of digestive tract; Z90.710 Acquired absence of both cervix and uterus; F17.210 Nicotine dependence, cigarettes, uncomplicated; Z88.5 Allergy status to narcotic agent; Z88.8 Allergy status to other drugs, medicaments and biological substances

== ENCOUNTER 2019-02-21 04:55 | Inpatient (IN) | payer OTHER ==
[~2019-02-21] VITALS: Ht 170.2 cm; Wt 103.0 kg
[~2019-02-21 04:55] MED LIST changes: +PYRIDIUM200 MG PO
[2019-02-21 05:06] VITALS: BP 116/71
[2019-02-21 05:46] LABS: URINE CLARITY CLOUDY
[2019-02-21 06:00] LABS: SSA (PROTEIN CONFIRMATORY) NEGATIVE (Negative)
[2019-02-21 06:04] LABS: ICTOTEST (BILI CONFIRMATORY) Negative (Negative); URINE REDUCING SUBSTANCE 0 %
[2019-02-21 06:06] LABS: ABSOLUTE NEUTROPHILS 4.7 thou/uL (1.4-8.2); BASOPHILS 0.5 % (0.0-2.0); EOSINOPHILS 1.3 % (0.0-3.0); HEMATOCRIT 38.5 % (37.0-47.0); HEMOGLOBIN 12.6 gm/dL (12.0-15.0); LYMPHOCYTES 31.3 % (24.0-44.0); MCH 28.9 pg (26.0-34.0); MCHC 32.7 g/dL (28.0-37.0); MCV 88.4 fL (80.0-100.0); MONOCYTES 6.3 % (1.0-8.0); PLATELET COUNT 328 thou/uL (150-400); POLYS 60.6 % (36.0-66.0); RBC 4.36 mil/uL (4.20-5.00); WBC 7.8 thou/uL (4.0-11.0)
[2019-02-21 06:10] LABS: CALCIUM 8.9 mg/dL (8.5-10.1); POTASSIUM 3.3 mmol/L (3.5-5.1)
[2019-02-21 06:10] LABS: BACTERIA-REFLEX 1-9 Few /HPF (None Seen); CASTS None Seen /LPF (None Seen); CRYSTALS None Seen /LPF (None Seen); MUCUS 0-3 Light strn/LPF (None Seen); SQUAMOUS 4-10 Moderate /LPF (0-3); URINE RBC >20 Many /HPF (0-2); URINE WBC-REFLEX >25 Many /HPF (0-5)
[2019-02-21 06:13] LABS: URINE COLOR ORANGE
[2019-02-21 07:01] VITALS: BP 118/68
[2019-02-21 07:11] VITALS: BP 131/69
--- NOTE | 2019-02-21 11:54 | NUR ---
ASSESSMENT-PT LIVES AT HOME WITH HER SHE IS INDEPENDENT OF ADLS AND AMBULATION. PT HAS A CONCENTRATOR AT HOME FROM [facility]. SHE HAS HAD [facility] IN THE PAST. PT SAYS SHE MESSED UP HER HANDICAPPED STICKER APPLICATION. SHE WAS GIVEN A NEW ONE. LAUNDRY LOCATED IN THE BASEMENT. FOLLOWING TO ASSIST WITH DC PLANNING.
--- NOTE | 2019-02-21 15:00 | NUR ---
ASSUMED PT CARE AT 0700. ADMISSION COMPLETED AND ASSESSMENT COMPLETED THIS AFTERNOON. PT HAVING PAIN ISSUES TODAY. FENTANYL NOT HELPING PAIN. PHYSICIAN MADE CHANGES AND PT REPORTS SOME PAIN RELIEF WITH TORDOL AND FENTANY AND REQUETSED TO ALSO TRY THE OXYCODONE. WILL MONITOR FOR PAIN CONTROL. URINE IS DARK ORANGE DUE TO PYRINIUM SHE TAKES AT HOME. WILL CONTINUE WITH CURRENT CARE.
--- NOTE | 2019-02-21 17:24 | NUR ---
REPORT CALLED TO [facility] RECEIVING NURSE. PT TRANSFERRED IN STABLE CONDITION VIA WHEELCHAIR.
--- NOTE | 2019-02-21 18:02 | NUR ---
PATIENT TRANSFERRED FROM ROOM 4E #418 TO [facility] ROOM #227. PATIENT ORIENTED TO UNIT AND SETTLED.
[2019-02-21 18:46] VITALS: BP 118/62
[2019-02-22 05:13] LABS: CALCIUM 8.8 mg/dL (8.5-10.1); POTASSIUM 4.2 mmol/L (3.5-5.1)
--- NOTE | 2019-02-22 05:27 | NUR ---
ASSUMED CARE OF PATIENT AT 1900. VSS. ASSESSMENT COMPLETED AND IS DOCUMENTED. RIGHT CHEST POWER PORT PATENT WITH NS RUNNING AT 125 ML/HR. BLOOD ASPIRATED VIA PORT. POTASSIUM: 3.3; POTASSIUM CHLORIDE 10 MEQ BID (HOME MED) RESTARTED. BMP DRAWN THIS AM; POTASSIUM: 4.2. PT C/O SEVERE PELVIC/LOWER QUAD ABD PAIN. PT WAS MEDICATED CONTINUOUSLY WITH FENTANYL IV, TIZANDINE, AND OXYCODONE WITH LITTLE RELIEF. PT ONLY SLEPT A COUPLE HOURS LAST NIGHT. PT VERY UPSET AND TEARFUL LAST NIGHT AND THIS AM D/T BROTHER PASSING AWAY LAST NIGHT. PT UP AD ROXANNE TO BSC X4 THROUGHOUT THE NIGHT. PT CURRENTLY RESTING QUIETLY IN BED IN NO ACUTE DISTRESS. BED LOCKED AND IN LOWEST POSITION. CALL LIGHT WITHIN REACH. TM.
--- NOTE | 2019-02-22 05:48 | NUR ---
THIS NURSE AGREES WITH ASSESSMENT AND NOTES FROM ACTUARIAL ASSISTANT ON THIS PATIENT.
[2019-02-22] MEDS ORDERED: CEFDINIR300 MG PO ×2 (07:24)
[2019-02-22] MEDS ORDERED: PHENAZOPYRIDIN200 M2 PO ×2 (07:26)
[2019-02-22 07:37] VITALS: BP 118/69
[2019-02-22 07:58] VITALS: BP 118/69
--- NOTE | 2019-02-22 10:36 | NUR ---
PT ALERT AND ORIENTED TIMES FOUR VSS, IVF INFUSING PER ORDER. PT C/O ABD PAIN AND NAUSEA PRN MEDICATION FOR BOTH GIVEN WITH SOME RELEIF. PT TOLERATED MEDS AND BREAKFAST. PT UP AB ROXANNE IN ROOM WITH STEADY GAIT. PT PROGRESSING TOWRADS POC GOALS.
== END 2019-02-22 10:44 | disposition home or self-care (01) | DRG 690 ==
LOC: ER 04:55 → EROBS 07:30 → SICU 07:30 → 4E 07:30 → SICU 18:07
PROVIDERS: Emergency Medicine; ADMIT Family Medicine
DX: N30.10 Interstitial cystitis (chronic) without hematuria (principal); K86.1 Other chronic pancreatitis; E78.5 Hyperlipidemia, unspecified; K21.9 Gastro-esophageal reflux disease without esophagitis; F41.9 Anxiety disorder, unspecified; K31.84 Gastroparesis; I50.9 Heart failure, unspecified; K58.9 Irritable bowel syndrome, unspecified; F17.200 Nicotine dependence, unspecified, uncomplicated; Z90.49 Acquired absence of other specified parts of digestive tract; Z79.899 Other long term (current) drug therapy; Z88.8 Allergy status to other drugs, medicaments and biological substances; Z86.73 Personal history of transient ischemic attack (TIA), and cerebral infarction without residual deficits; Z90.710 Acquired absence of both cervix and uterus
CPT/HCPCS: 15002

== ENCOUNTER 2019-04-06 09:39 | Emergency (ER) | payer OTHER ==
[~2019-04-06] VITALS: Ht 160 cm; Wt 72.6 kg
[~2019-04-06 09:39] MED LIST changes: +PHENAZOPYRIDIN200 M2 PO
[2019-04-06 09:52] VITALS: BP 141/77
== END 2019-04-06 10:37 | disposition home or self-care (01) ==
LOC: ER 09:39
DX: J06.9 Acute upper respiratory infection, unspecified (principal); R13.10 Dysphagia, unspecified; E78.5 Hyperlipidemia, unspecified; K21.9 Gastro-esophageal reflux disease without esophagitis; Z90.49 Acquired absence of other specified parts of digestive tract; Z90.710 Acquired absence of both cervix and uterus; I50.9 Heart failure, unspecified; F17.210 Nicotine dependence, cigarettes, uncomplicated; Z86.73 Personal history of transient ischemic attack (TIA), and cerebral infarction without residual deficits; Z98.890 Other specified postprocedural states; Z88.5 Allergy status to narcotic agent; Z88.8 Allergy status to other drugs, medicaments and biological substances; Z79.899 Other long term (current) drug therapy

== ENCOUNTER 2019-04-07 10:25 | Emergency (ER) | payer OTHER ==
[~2019-04-07] VITALS: Ht 170.2 cm; Wt 100.2 kg
[2019-04-07 13:40] VITALS: BP 124/96
== END 2019-04-07 13:40 | disposition home or self-care (01) ==
LOC: ER 10:25
DX: K22.0 Achalasia of cardia (principal); J30.9 Allergic rhinitis, unspecified; E78.5 Hyperlipidemia, unspecified; F41.9 Anxiety disorder, unspecified; K58.9 Irritable bowel syndrome, unspecified; K21.9 Gastro-esophageal reflux disease without esophagitis; I50.9 Heart failure, unspecified; K31.84 Gastroparesis; F17.210 Nicotine dependence, cigarettes, uncomplicated; Z88.5 Allergy status to narcotic agent; Z88.8 Allergy status to other drugs, medicaments and biological substances; Z90.49 Acquired absence of other specified parts of digestive tract; Z90.710 Acquired absence of both cervix and uterus; Z86.73 Personal history of transient ischemic attack (TIA), and cerebral infarction without residual deficits

== ENCOUNTER 2019-06-09 11:30 | Emergency (ER) | payer OTHER ==
[~2019-06-09] VITALS: Ht 170.2 cm; Wt 99.8 kg
[2019-06-09] MEDS ORDERED: TRELEGY ELLIPT1 EACH INH (11:41)
[2019-06-09 12:11] LABS: ABSOLUTE NEUTROPHILS 6.1 thou/uL (1.4-8.2); BASOPHILS 0.8 % (0.0-2.0); EOSINOPHILS 0.8 % (0.0-3.0); HEMATOCRIT 40.7 % (37.0-47.0); HEMOGLOBIN 13.7 gm/dL (12.0-15.0); LYMPHOCYTES 25.3 % (24.0-44.0); MCH 29.9 pg (26.0-34.0); MCHC 33.7 g/dL (28.0-37.0); MCV 88.7 fL (80.0-100.0); MONOCYTES 5.1 % (1.0-8.0); PLATELET COUNT 385 thou/uL (150-400); RBC 4.59 mil/uL (4.20-5.00); RDW 15.8 % (10.5-14.5); WBC 8.9 thou/uL (4.0-11.0)
--- NOTE | 2019-06-09 12:17 | EKG ---
[place] [address] [facility] [place] [address] ELECTROCARDIOGRAM REPORT Name: MIGDALIA SNEED Room #: PRE [facility].#: [id number] ������������������ Admission: ������������������ Attend Phys: Discharge: ������������������ Date of : 59 Report #: [id number] ����������������������������������������������������������������� [id number] THIS REPORT FOR: //name// [facility] ED Test Date: 2019-06-09 Test Time: 12:07:28 Pat Name: MIGDALIA SNEED Department: Room: Gender: F Flight/Transport Nurse: LEN : 1955 Requested By: Jayson Yanez Order Number: [id number] MD: Candelario Rodriguez Measurements Intervals [place] Rate: 68 P: 72 [place]: 172 QRS: 64 QRSD: 76 T: 30 QT: 390 QTc: 415 Interpretive Statements Sinus rhythm Consider left atrial enlargement Compared to ECG 01/13/2019 13:29:54 No significant changes Electronically Signed On 06-09-2019 12:17:45 CDT by Candelario Rodriguez [email or web address] ��������������������������������������������� <ELECTRONICALLY SIGNED> ���������������������������������������� By: Candelario Rodriguez MD ��������������������������������������������� 06/09/19 1217 1207 1207 MD KEI Meier
[2019-06-09 12:28] LABS: URINE BILIRUBIN NEGATIVE (Negative); URINE BLOOD NEGATIVE (Negative); URINE CLARITY CLEAR; URINE COLOR YELLOW; URINE GLUCOSE-RANDOM* NEGATIVE (Negative); URINE KETONES NEGATIVE (Negative); URINE LEUKOCYTES-REFLEX NEGATIVE (Negative); URINE NITRITE-REFLEX NEGATIVE (Negative); URINE PROTEIN (DIPSTICK) NEGATIVE (Negative); URINE SPECIFIC GRAVITY <= 1.005 (1.005-1.035); URINE UROBILINOGEN 0.2 E.U./dl (0.2-1.0)
[2019-06-09 12:33] LABS: ALBUMIN 3.8 g/dL (3.4-5.0); ANION GAP 13 mmol/L (7-16); BUN 12 mg/dL (7-18); CALCIUM 9.5 mg/dL (8.5-10.1); CHLORIDE 101 mmol/L (98-107); CO2 24 mmol/L (21-32); MAGNESIUM 1.8 mg/dL (1.8-2.4); POTASSIUM 3.4 mmol/L (3.5-5.1); SGOT 17 U/L (15-37); SGPT 18 U/L (30-65); SODIUM 138 mmol/L (136-145); TOTAL BILIRUBIN 0.2 mg/dL (<0.1-1.0); TOTAL PROTEIN 7.5 g/dL (6.4-8.2); TROPONIN-I <0.06 ng/mL (<0.06)
[2019-06-09 12:38] LABS: AMP/METHAMP Negative (Negative); BARBITURATES Negative (Negative); BENZODIAZEPINES Negative (Negative); COCAINE Negative (Negative); METHADONE Negative (Negative); OPIATES POSITIVE (Negative); PCP Negative (Negative)
[2019-06-09 13:36] LABS: GLUCOSE 97 mg/dL (74-106)
[2019-06-09] MEDS ORDERED: NORFLEX100 MG PO (15:10)
[2019-06-09] MEDS ORDERED: TRAMADOL 50 MG50 MG PO (15:10)
[2019-06-09] MEDS ORDERED: PHENERGAN 25 MG25 M1 PO (15:10)
[2019-06-09 15:38] VITALS: BP 133/87
== END 2019-06-09 15:39 | disposition home or self-care (01) ==
LOC: ER 11:30
PROVIDERS: Emergency Medicine
DX: M43.6 Torticollis (principal); R11.0 Nausea; R20.2 Paresthesia of skin; F17.210 Nicotine dependence, cigarettes, uncomplicated; E78.5 Hyperlipidemia, unspecified; K21.9 Gastro-esophageal reflux disease without esophagitis; F41.9 Anxiety disorder, unspecified; I11.0 Hypertensive heart disease with heart failure; I50.9 Heart failure, unspecified; K58.9 Irritable bowel syndrome, unspecified; K31.84 Gastroparesis; Z88.5 Allergy status to narcotic agent; Z86.73 Personal history of transient ischemic attack (TIA), and cerebral infarction without residual deficits; Z90.49 Acquired absence of other specified parts of digestive tract; Z90.710 Acquired absence of both cervix and uterus; Z90.11 Acquired absence of right breast and nipple; Z88.8 Allergy status to other drugs, medicaments and biological substances

== ENCOUNTER 2019-06-20 01:42 | Emergency (ER) | payer OTHER ==
[~2019-06-20] VITALS: Ht 170.2 cm; Wt 101.2 kg
[~2019-06-20 01:42] MED LIST changes: +NORFLEX100 MG PO; +TRAMADOL 50 MG50 MG PO; +TRELEGY ELLIPT1 EACH INH
[2019-06-20] MEDS ORDERED: METHOCARBAMOL500 M2 PO (01:53)
[2019-06-20] MEDS ORDERED: MAGOX 400400 MG PO (01:53)
[2019-06-20 04:11] VITALS: BP 133/78
--- NOTE | 2019-06-20 09:20 | EKG ---
[address] [address] ELECTROCARDIOGRAM REPORT Name: TRISTIAN SNEEDLYN ALLYSSA [id number] ������������������ Admission: 06/20/19 ������������������ Attend Phys: Discharge: 06/20/19 ������������������ Date of : 59 Report #: [id number] ����������������������������������������������������������������� [id number] THIS REPORT FOR: //name// [facility] ED Test Date: 2019-06-20 Test Time: 01:52:48 Pat Name: MIGDALIA SNEED Department: Room: Gender: F Toxicologist: AISSATOU : 1955 Requested By: Jayson Yanez Order Number: [id number] MD: Eduardo Guy Measurements Intervals [place] Rate: 73 P: 63 DC: 162 QRS: 52 QRSD: 88 T: 33 QT: 370 QTc: 408 Interpretive Statements Sinus rhythm Normal tracing Compared to ECG 06/09/2019 12:07:28 No significant changes Electronically Signed On 06-20-2019 9:20:22 CDT by Eduardo Guy [email or web address] ��������������������������������������������� <ELECTRONICALLY SIGNED> ���������������������������������������� By: Eduardo Guy MD, [facility] ��������������������������������������������� 06/20/19 0920 0152 1 Eduardo Gyu MD, FACC /EPI
== END 2019-06-20 04:11 | disposition home or self-care (01) ==
LOC: ER 01:42
DX: M43.6 Torticollis (principal); M25.511 Pain in right shoulder; F17.210 Nicotine dependence, cigarettes, uncomplicated; I50.9 Heart failure, unspecified; E78.5 Hyperlipidemia, unspecified; K21.9 Gastro-esophageal reflux disease without esophagitis; Z88.5 Allergy status to narcotic agent; Z88.8 Allergy status to other drugs, medicaments and biological substances; Z79.82 Long term (current) use of aspirin; Z79.899 Other long term (current) drug therapy; Z90.49 Acquired absence of other specified parts of digestive tract; Z90.710 Acquired absence of both cervix and uterus; Z86.73 Personal history of transient ischemic attack (TIA), and cerebral infarction without residual deficits

== ENCOUNTER → 2019-08-11 | Outpatient (CLI) | payer OTHER ==
[~2019-08-11] MED LIST changes: +MAGOX 400400 MG PO
== END ==
LOC: RAD 11:15
DX: R91.8 Other nonspecific abnormal finding of lung field (principal); Z88.8 Allergy status to other drugs, medicaments and biological substances

== ENCOUNTER 2019-08-19 11:36 | Emergency (ER) | payer OTHER ==
[~2019-08-19] VITALS: Ht 170.2 cm; Wt 101.2 kg
[2019-08-19 12:56] LABS: ABSOLUTE NEUTROPHILS 4.4 thou/uL (1.4-8.2); BASOPHILS 0.7 % (0.0-2.0); EOSINOPHILS 0.9 % (0.0-3.0); HEMATOCRIT 38.2 % (37.0-47.0); HEMOGLOBIN 12.4 gm/dL (12.0-15.0); LYMPHOCYTES 35.3 % (24.0-44.0); MCH 29.7 pg (26.0-34.0); MCHC 32.5 g/dL (28.0-37.0); MCV 91.4 fL (80.0-100.0); MONOCYTES 6.9 % (1.0-8.0); PLATELET COUNT 336 thou/uL (150-400); POLYS 56.2 % (36.0-66.0); RBC 4.18 mil/uL (4.20-5.00); RDW 15.6 % (10.5-14.5); WBC 7.8 thou/uL (4.0-11.0)
[2019-08-19 13:05] LABS: URINE BILIRUBIN NEGATIVE (Negative); URINE BLOOD NEGATIVE (Negative); URINE CLARITY CLEAR; URINE GLUCOSE-RANDOM* NEGATIVE (Negative); URINE KETONES NEGATIVE (Negative); URINE LEUKOCYTES-REFLEX NEGATIVE (Negative); URINE NITRITE-REFLEX NEGATIVE (Negative); URINE PROTEIN (DIPSTICK) NEGATIVE (Negative); URINE SPECIFIC GRAVITY <= 1.005 (1.005-1.035); URINE UROBILINOGEN 0.2 E.U./dl (0.2-1.0)
[2019-08-19 13:07] LABS: URINE COLOR BLUE
[2019-08-19 13:14] LABS: CALCIUM 9.5 mg/dL (8.5-10.1); CREATININE 0.9 mg/dL (0.6-1.0); POTASSIUM 3.9 mmol/L (3.5-5.1)
[2019-08-19 13:21] LABS: ALBUMIN 3.3 g/dL (3.4-5.0); TOTAL BILIRUBIN 0.1 mg/dL (<0.1-1.0); TOTAL PROTEIN 6.6 g/dL (6.4-8.2)
[2019-08-19] MEDS ORDERED: NEURONTIN 300300 M1 PO (16:33)
[2019-08-19 17:02] VITALS: BP 103/40
== END 2019-08-19 17:02 | disposition home or self-care (01) ==
LOC: ER 11:36
PROVIDERS: Physician Assistant
DX: B02.9 Zoster without complications (principal); R10.84 Generalized abdominal pain; E78.5 Hyperlipidemia, unspecified; K21.9 Gastro-esophageal reflux disease without esophagitis; F41.9 Anxiety disorder, unspecified; I50.33 Acute on chronic diastolic (congestive) heart failure; K58.9 Irritable bowel syndrome, unspecified; F17.210 Nicotine dependence, cigarettes, uncomplicated; Z90.49 Acquired absence of other specified parts of digestive tract; Z90.710 Acquired absence of both cervix and uterus; Z86.73 Personal history of transient ischemic attack (TIA), and cerebral infarction without residual deficits; Z90.11 Acquired absence of right breast and nipple; Z88.6 Allergy status to analgesic agent; Z88.1 Allergy status to other antibiotic agents; Z88.8 Allergy status to other drugs, medicaments and biological substances

== ENCOUNTER → 2019-08-28 | Outpatient (CLI) | payer OTHER ==
[~2019-08-28] MED LIST changes: +ATIVAN1 M1 PO; -ATIVAN1 MG PO; +CARAFATE 11 GM/10 M1 PO; +DICLOFENAC SOD100 G1 TOP; +ENDOCET 5-3251 EACH PO; +LASIX 40 MG TAB40 MG PO; +LIDODERM1 EACH TRANSDERM; +NEURONTIN 300300 M1 PO; +OMEPRAZOLE MAGN20 MG PO; +TRELEGY ELLIPT1 EACH PO; +ZANTAC 150MG T150 M1 PO; +ZOFRAN 4 MG ORAL4 MG PO; +ZOVIRAX400 MG PO; +[UNRECOGNIZED DRUG - OTHER] PO
== END ==
LOC: RAD 08:54
DX: K44.9 Diaphragmatic hernia without obstruction or gangrene (principal)

== ENCOUNTER 2019-09-02 12:58 | Emergency (ER) | payer OTHER ==
[~2019-09-02] VITALS: Ht 170.2 cm; Wt 101.2 kg
[~2019-09-02 12:58] MED LIST changes: -CARAFATE 11 GM/10 M1 PO; -DICLOFENAC SOD100 G1 TOP; -ENDOCET 5-3251 EACH PO; -LASIX 40 MG TAB40 MG PO; -LIDODERM1 EACH TRANSDERM; -TRELEGY ELLIPT1 EACH PO; -ZANTAC 150MG T150 M1 PO; -ZOFRAN 4 MG ORAL4 MG PO; -ZOVIRAX400 MG PO; -[UNRECOGNIZED DRUG - OTHER] PO
[2019-09-02 13:25] LABS: URINE BILIRUBIN NEGATIVE (Negative); URINE BLOOD TRACE (Negative); URINE CLARITY CLEAR; URINE GLUCOSE-RANDOM* NEGATIVE (Negative); URINE KETONES NEGATIVE (Negative); URINE LEUKOCYTES-REFLEX NEGATIVE (Negative); URINE NITRITE-REFLEX NEGATIVE (Negative); URINE PROTEIN (DIPSTICK) TRACE (Negative); URINE SPECIFIC GRAVITY 1.025 (1.005-1.035); URINE UROBILINOGEN 0.2 E.U./dl (0.2-1.0)
[2019-09-02 13:27] LABS: URINE COLOR GREENISH
[2019-09-02] MEDS ORDERED: MOBIC15 MG PO ×2 (15:19→15:20)
[2019-09-02 15:28] VITALS: BP 132/71
[2019-09-10] MEDS ORDERED: ERYTHROMYCIN250 M1 PO (10:02)
[2019-09-10] MEDS ORDERED: ZOVIRAX400 MG PO (10:05)
[2019-09-10] MEDS ORDERED: TRELEGY ELLIPT1 EACH PO (10:06)
[2019-09-10] MEDS ORDERED: LASIX 40 MG TAB40 MG PO (10:06)
[2019-09-10] MEDS ORDERED: HYDROCHLOROTHIA25 M2 PO (10:07)
[2019-09-10] MEDS ORDERED: ZANTAC 150MG T150 M1 PO (10:08)
[2019-09-10] MEDS ORDERED: PHENERGAN 25 MG25 MG PO (10:10)
[2019-09-10] MEDS ORDERED: HYDROCODON-ACE1 EAC8 PO (10:12)
[2019-09-10] MEDS ORDERED: BELLADONNA-OPI1 EACH RECTAL (10:13)
[2019-10-14] MEDS ORDERED: CARAFATE 11 GM/10 M1 PO (09:35)
== END 2019-09-02 15:30 | disposition home or self-care (01) ==
LOC: ER 12:58
PROVIDERS: Emergency Medicine
DX: M25.552 Pain in left hip (principal); M54.5 Low back pain; E78.5 Hyperlipidemia, unspecified; K21.9 Gastro-esophageal reflux disease without esophagitis; I50.9 Heart failure, unspecified; K58.9 Irritable bowel syndrome, unspecified; F41.9 Anxiety disorder, unspecified; F17.210 Nicotine dependence, cigarettes, uncomplicated; Z90.49 Acquired absence of other specified parts of digestive tract; Z90.710 Acquired absence of both cervix and uterus; Z86.73 Personal history of transient ischemic attack (TIA), and cerebral infarction without residual deficits; Z90.12 Acquired absence of left breast and nipple; Z88.1 Allergy status to other antibiotic agents; Z88.6 Allergy status to analgesic agent; Z88.8 Allergy status to other drugs, medicaments and biological substances

== ENCOUNTER 2019-09-09 15:55 | Emergency (ER) | payer OTHER ==
[~2019-09-09] VITALS: Ht 170.2 cm; Wt 103.0 kg
[2019-09-09] MEDS ORDERED: [UNRECOGNIZED DRUG - OTHER] PO (16:31)
[2019-09-09 18:35] VITALS: BP 109/59
[2019-09-09] MEDS ORDERED: ENDOCET 5-3251 EACH PO (18:52)
[2019-09-10] MEDS ORDERED: ERYTHROMYCIN250 M1 PO (10:02)
[2019-09-10] MEDS ORDERED: ZOVIRAX400 MG PO (10:05)
[2019-09-10] MEDS ORDERED: TRELEGY ELLIPT1 EACH PO (10:06)
[2019-09-10] MEDS ORDERED: LASIX 40 MG TAB40 MG PO (10:06)
[2019-09-10] MEDS ORDERED: HYDROCHLOROTHIA25 M2 PO (10:07)
[2019-09-10] MEDS ORDERED: ZANTAC 150MG T150 M1 PO (10:08)
[2019-09-10] MEDS ORDERED: PHENERGAN 25 MG25 MG PO (10:10)
[2019-09-10] MEDS ORDERED: HYDROCODON-ACE1 EAC8 PO (10:12)
[2019-09-10] MEDS ORDERED: BELLADONNA-OPI1 EACH RECTAL (10:13)
[2019-10-14] MEDS ORDERED: CARAFATE 11 GM/10 M1 PO (09:35)
== END 2019-09-09 19:08 | disposition home or self-care (01) ==
LOC: ER 15:55
DX: B02.29 Other postherpetic nervous system involvement (principal); I50.9 Heart failure, unspecified; E78.5 Hyperlipidemia, unspecified; K21.9 Gastro-esophageal reflux disease without esophagitis; K58.9 Irritable bowel syndrome, unspecified; F41.9 Anxiety disorder, unspecified; F17.210 Nicotine dependence, cigarettes, uncomplicated; Z90.49 Acquired absence of other specified parts of digestive tract; Z90.710 Acquired absence of both cervix and uterus; Z86.73 Personal history of transient ischemic attack (TIA), and cerebral infarction without residual deficits; Z90.11 Acquired absence of right breast and nipple; Z88.6 Allergy status to analgesic agent; Z88.8 Allergy status to other drugs, medicaments and biological substances

== ENCOUNTER → 2019-09-10 | Outpatient (CLI) | payer OTHER ==
[~2019-09-10] VITALS: Ht 167.6 cm; Wt 104.3 kg
[~2019-09-10] MED LIST changes: +CARAFATE 11 GM/10 M1 PO; +ENDOCET 5-3251 EACH PO; +LASIX 40 MG TAB40 MG PO; +TRELEGY ELLIPT1 EACH PO; +ZANTAC 150MG T150 M1 PO; +ZOFRAN 4 MG ORAL4 MG PO; +ZOVIRAX400 MG PO; +[UNRECOGNIZED DRUG - OTHER] PO
[2019-09-10 10:21] VITALS: BP 124/76
--- NOTE | 2019-09-10 10:35 | NUR ---
Pain Clinic Assessment: 1. History of Osteoarthritis: DENIES History of Rheumatoid Arthritis: DENIES 2. Height: 5 ft. 6 in. 167.6 cm. Weight: 230.0 lb. oz. 104.328 kg. Patient's BMI: 37.1 3. Vital Signs: BP: 124/76 Pulse: 68 Resp: 15 Temp: 02 Sat: 100 ECG Mon: 4. Pain Intensity: 10 5. Fall Risk: Dizziness: N Needs help standing or walking: N Fallen in the last 3 months: N Fall risk comments: 6. Patient on Blood Thinner: None 7. History of Hypertension: N 8. Opioid Therapy greater than 6 weeks: Y Opiate Contract Signed: 9. Risk Assessment Tool Provided: 10. Functional Assessment Tool: 11. Recreational Drug Use: Never Drug Type: Tobacco Use: Current Every Day Smoker Tobacco Type: Cigarettes Amount or Packs/day: 0.5 How Many Years: 35 Alcohol Use: No Frequency: Quant:
--- NOTE | 2019-09-16 08:01 | HPC ---
[facility] [place] [address] PAIN MANAGEMENT CONSULTATION Name: MIGDALIA SNEED Room #: REG John Chaidez#: [id number] Admission: 09/10/19 Attend Phys: Gustavo Sneed DO Discharge: Date of : 59 Report #: [id number] THIS REPORT FOR: //name// CC: Gustavo Walter DATE OF SERVICE: 09/10/2019 CHIEF COMPLAINT: Herpetic neuralgia. HISTORY OF PRESENT ILLNESS: As you know, patient is a very unfortunate 64-year-old female with longstanding history of postherpetic neuralgia with recurrence of her herpes lesions that began about one month ago. She denies any changes in her medical history or reduction in her immune response that she is aware of. She has sought evaluation through her primary care physician as early as last night. The patient was seen in the Emergency Department requesting Dilaudid injections for her pain. She was advised to follow up with pain clinic and given a referral to our clinic today to discuss the possibility of trying epidural injection under fluoroscopic guidance to address her zoster outbreak. There has been shown some anecdotal literature that indicated that epidural injections could be beneficial. She was sent by her primary care physician as well to undergo this procedure in hopes of improving pain, as she is spending a significant amount of time going to and from hospitals and clinics to address this issue. Apparently, the patient has been on virtually all neuropathic pain medications provided by various pain clinics, the most recent was ANGEL pain. She was trialled on gabapentin, trialled on Lyrica, and trialled on nortriptyline, amitriptyline, and Cymbalta, all of which according to the patient caused side effects or lack of efficacy. Due to a lack of improvement with conservative treatment options, she sought further evaluation through her PCP, who has started her on oral medication in the form of opioids with some improvement, though the patient indicates suboptimal analgesic benefit. She was subsequently referred to our clinic to trial an epidural injection to determine if her symptoms will improve as seen with some of the anecdotal evidence in regards to epidurals and herpetic neuralgia. The patient indicates today pain is continuous, steady, and constant and describes the pain as shooting, aching, throbbing, and sharp, places current pain score 10/10, daily average at 10/10, worst pain has been at 10/10. The patient indicates pain is exacerbated with walking and improves with ice and pain medications as well as the local Lidoderm patch. She has been referred to our service to discuss the possibility of undergoing epidural injection to address the Zoster outbreak. PAST MEDICAL HISTORY: 1. COPD. 2. Chronic GI issues. [address] [address] PAIN MANAGEMENT CONSULTATION Name: MIGDALIA SNEED Room #: REG CRISTINE Chaidez#: [id number] Admission: 09/10/19 Attend Phys: Gustavo Sneed DO Discharge: Date of : 59 Report #: [id number] 3. Multiple emotional problems. 4. History of transient ischemic attack. 5. Carpal tunnel syndrome. 6. Diverticulitis. 7. Hiatal hernia. 8. Hyperlipidemia. 9. Irritable bowel syndrome. 10. Incontinence. 11. Interstitial cystitis. 12. Pancreatitis. 13. Tardive dyskinesia. PAST SURGICAL HISTORY: 1. Appendectomy. 2. Bladder repair. 3. Breast lumpectomy. 4. Cholecystectomy. 5. Colectomy. 6. Right hand ligament reconstruction. 7. Herniorrhaphy. 8. Hysterectomy. 9. Bladder implant. 10. Left foot neuroma excision. SOCIAL HISTORY: The patient smokes half pack tobacco per day and has done so for greater than 45 years. Denies IV or illicit drug use. Denies any chronic alcohol use. She is on disability and has been so since 2000. She is not in litigation in regards to pain. She is unaccompanied today. REVIEW OF SYSTEMS: Positive for weight gain, decrease in appetite, fever and night sweats, fatigue and weakness, shortness of breath walking or lying flat, frequent and recurrent coughs, loss of appetite, nausea, vomiting, abdominal pain, painful urination, nocturia, change of force or stream of urination, incontinence and dribbling to urine, malaise, rash and itching secondary to herpes zoster, changes in skin color and texture, breast pain, varicose veins, numbness and tingling sensations, history of transient ischemic attack, anxiety, depression, heat and cold intolerance. All other review of systems is negative per 12-point review of systems other than those listed in the history of present illness. Pain impact score, 61/70 indicating severe near complete interference of daily activities secondary to pain. ALLERGIES: MORPHINE, CODEINE, METRONIDAZOLE, METOCLOPRAMIDE, and PLAVIX. CURRENT MEDICATIONS: B and O suppositories used once a day per rectum, [facility] [address] [place] [address] PAIN MANAGEMENT CONSULTATION Name: MIGDALIA SNEED Room #: REG JIMENA Viktoria#: [id number] Admission: 09/10/19 Attend Phys: Gustavo Sneed DO Discharge: Date of : 59 Report #: [id number] hydrocodone/acetaminophen 7.5/325 one tab every 6 hours p.r.n. for pain, Phenergan 25 mg b.i.d., ranitidine 150 mg once a day, hydrochlorothiazide 25 mg once a day, Lasix 40 mg once a day, acyclovir 400 mg 4 times daily, erythromycin 250 mg 4 times a day, Trilogy Ellipta inhaled twice a day, Tessalon Perles 100 mg 4 times a day, tamsulosin 0.4 mg once a day, Ativan 1 mg 3 times a day, Zenpep 5000 units once a day, albuterol 2 puffs q. 4 hours p.r.n., omeprazole 40 mg twice a day, aspirin 81 mg per day, Linzess 290 mcg once a day, sucralfate 1 gram twice a day, pravastatin 20 mg per day, and potassium chloride 10 mEq twice a day. IMAGING: There is no new imaging. PQRS: The patient denies any specific osteoarthritis or rheumatoid arthritis. She places pain intensity at 10/10. She is not a fall risk and has not had a fall in the last 3 months. She is not on blood thinners, but is treated for hypertension. She is on chronic opioids being provided by her PCP. Pain impact score is rated at 61/70, severe, near complete interference of daily activities secondary to pain. PHYSICAL EXAMINATION: VITAL SIGNS: Blood pressure 124/76, pulse 68, and respiratory rate 15 and unlabored. The patient is 100% on the room air. Height 5 feet and 6 inches tall, 230 pounds, and the BMI is calculated 37.1. GENERAL: Well-developed, well-nourished, well-hydrated, exogenously obese 64-year-old female appearing stated age. She is in no acute distress and awake, alert, and oriented x 3. Current pain score is rated at 10/10. HEENT: Normocephalic and atraumatic. Pupils are equal, round, and reactive to light. Extraocular muscles are intact. Sclerae are nonicteric without injection. NEUROLOGIC: Cranial nerves 2-12 grossly intact. Speech is fluent. The patient is deemed a fair historian. LUNGS: Clear, no wheeze, no rhonchi or rales. CARDIOVASCULAR: Regular. No appreciable gallop. No rub. ABDOMEN: Soft, obese, and normoactive bowel sounds. EXTREMITIES: Show no clubbing and no cyanosis. Mild lower extremity nonpitting edema. MUSCULOSKELETAL: The patient has skin color changes over the dermatomal distribution, radiating from the lower lumbar spine towards the upper buttock and following out towards the lateral portion of the gluteus bilaterally. There are no active lesions noted on this distribution. There is allodynia and hyperalgesia to tactile testing. Seated straight leg raising is negative. Supine straight leg raising is negative. Param test is negative. Modified Gaenslen's is positive for axial low back pain. Ankle clonus is negative. Babinski is negative. Lumbar provocation is met with some increasing pain. This is done not only with the extension, but lateral flexion and rotation. Pain is axial in nature without a radicular component. [address] [address] PAIN MANAGEMENT CONSULTATION Name: MIGDALIA SNEED Room #: REG CRISTINE Chaidez#: [id number] Admission: 09/10/19 Attend Phys: Gustavo Sneed DO Discharge: Date of : 59 Report #: [id number] PLAN: 1. Herpes zoster. 2. Chronic herpetic neuralgia. 3. Chronic low back pain. 4. Medication intolerance. PLAN: 1. Based on today's physical exam, the history patient has provided, the description, the patient uses in regards to pain as well as the location of symptoms and the changes in the skin texture overlying dermatomal distributions consistent with herpetic neuralgia, the likely source of patient's pain is recurrent herpes zoster. The patient has longstanding history of herpetic neuralgia that has been attempted to be treated with medication management. Apparently, she has trialled virtually all of the neuropathic medications utilized for a postherpetic neuralgia including the most recent medication amitriptyline, for which, the patient reported nausea and could not continue to take the medication. She has also trialed gabapentin, Lyrica, nortriptyline, and Cymbalta, all indicated for postherpetic neuralgia and all of which have either failed due to side effects or intolerance to medication. The patient indicates she has been treated for this for years through other pain services, but has not noted improvement in symptoms. She sought further evaluation through her primary care physician after a recurrence of herpes zoster about one month ago. She has been to the Emergency Department and urgent care in regards to this issue and has had medication given, apparently Dilaudid works very well for the patient, though it is not indicated for postherpetic neuralgia. The patient was subsequently referred to our service to discuss the possibility of undergoing epidural injection, which has shown some anecdotal evidence of improving a postherpetic neuralgia pain and reducing the severity of herpes zoster. The patient and I discussed today the treatment options for a postherpetic neuralgia, typically include adjustments in life stressors and any underlying medical condition that might be reducing her immune response. We also discussed initiation of neuropathic pain medications. This could be done through her primary care physician, who has been treating her symptoms for an extended period of time. Medications such as we challenged with the long-acting gabapentin in the form of either Gralise or Horizant or possibly even looking towards the long-acting Lyrica. Other medications such as Trileptal or Topamax have had some efficacy with neuropathic symptoms. We will defer to the primary team if they wish to initiate this therapy. The patient and her primary care physician did talk about the anecdotal evidence that shows improvement with epidural injections in some patients, who are susceptible to steroid exposure with postherpetic neuralgia. She was subsequently referred to our clinic. We discussed that the evidence is present, but is not consistent. We could have the patient undergo the epidural injection to determine if she is a candidate to [address] [address] PAIN MANAGEMENT CONSULTATION Name: MIGDALIA SNEED Room #: REG CRISTINE Chaidez#: [id number] Admission: 09/10/19 Attend Phys: Gustavo Sneed DO Discharge: Date of : 59 Report #: [id number] continue this type of treatment in the future. We discussed with the patient that the third constitution party payer restrictions require that authorization be obtained before this could be performed. We will begin this authorization process as quickly as possible. 2. The patient was advised the authorization for epidural injection to address herpes zoster may take an extended period of time. This could take anywhere from 4 to 15 working days to achieve. We will begin this process immediately, but advised the patient there is a possibility it may not be approved as the indication for epidural injection in her case is based on anecdotal evidence and not on a clear and definitive proof of efficacy. We will begin this process immediately and contact the patient once we have the authorization. Again, this could take an extended period of time and she will need to be following up with her PCP in regards to any ongoing issues until which time we have that approval. 3. We have made no medication changes in the patient's current treatment course. The recommendations above can be trialed as options for a treatment. Again, we will defer to the primary team if they wish to initiate this type of treatment. Given her extensive history and complications with medications, I feel it is important the patient continue with the physician who knows her case well enough to be able to adjust based on potential side effects and Dr. Walter has been with this patient for an extended period of time. 4. We will see the patient back in followup visit once we have achieved this authorization to undergo a lumbar epidural injection to address herpes zoster pain. We will keep you apprised of response to treatment. 5. We wish to thank Dr. Walter for the referral of this patient to our clinic. We will keep you apprised of her response to treatment for the requested injection once it has been approved and provided to the patient. We will have her follow up with us after that injection to determine the efficacy and will let you know of her response. Again, we wish to thank you for the opportunity to see this patient in consultation. <ELECTRONICALLY SIGNED> By: Gustavo Sneed DO 09/16/19 0801 0729 1216 Gustavo Sneed DO /nt
== END ==
LOC: PAIN 07:01
DX: J44.9 Chronic obstructive pulmonary disease, unspecified (principal); E78.5 Hyperlipidemia, unspecified; M54.5 Low back pain; B02.9 Zoster without complications

== ENCOUNTER → 2019-09-16 | Outpatient (CLI) | payer OTHER ==
[~2019-09-16] VITALS: Ht 167.6 cm; Wt 103.4 kg
[2019-09-16 11:03] VITALS: BP 130/81
--- NOTE | 2019-09-16 11:05 | NUR ---
Pain Clinic Assessment: 1. History of Osteoarthritis: DENIES History of Rheumatoid Arthritis: DENIES 2. Height: 5 ft. 6 in. 167.6 cm. Weight: 228.0 lb. oz. 103.420 kg. Patient's BMI: 36.8 3. Vital Signs: BP: 130/81 Pulse: 73 Resp: 14 Temp: 02 Sat: 99 ECG Mon: 4. Pain Intensity: 10 5. Fall Risk: Dizziness: N Needs help standing or walking: N Fallen in the last 3 months: N Fall risk comments: 6. Patient on Blood Thinner: None 7. History of Hypertension: N 8. Opioid Therapy greater than 6 weeks: Y Opiate Contract Signed: 9. Risk Assessment Tool Provided: 10. Functional Assessment Tool: 11. Recreational Drug Use: Never Drug Type: Tobacco Use: Current Every Day Smoker Tobacco Type: Amount or Packs/day: How Many Years: Alcohol Use: No Frequency: Quant:
--- NOTE | 2019-09-30 12:47 | HPC ---
[address] [address] PAIN MANAGEMENT CONSULTATION Name: MIGDALIA SNEED [id number] Admission: 09/16/19 Attend Phys: Gustavo Sneed DO Discharge: Date of : 59 Report #: [id number] THIS REPORT FOR: //name// CC: Gustavo Walter MD DATE OF SERVICE: 09/16/2019 CHIEF COMPLAINT: Postherpetic neuralgia. HISTORY OF PRESENT ILLNESS: As you know, the patient is a 64-year-old female referred to our clinic for longstanding history of postherpetic neuralgia. We have been requested by the primary team to provide a lumbar epidural injection under fluoroscopic guidance for recurrent herpes zoster radiating from the lower back. We have received preauthorization for the patient to undergo the procedure today. She returns to undergo this injection in hopes of improving overall pain. She is placing pain today at around 10/10. ALLERGIES: MORPHINE, CODEINE, METRONIDAZOLE, METOCLOPRAMIDE AND PLAVIX. CURRENT MEDICATIONS: See extensive list in chart. IMAGING: No new imaging available. PQRS: The patient has no specific osteoarthritic changes or rheumatoid arthritis. She is placing pain intensity today at 10/10. She is not a risk for fall. She has not had a fall in the last 3 months. She is not on blood thinners. She is not treated for hypertension. She has been on chronic opioids for an extended period of time. She has a moderate risk of opioid addiction. Pain impact score 70/70, complete interference of daily activities secondary to pain. PHYSICAL EXAMINATION: VITAL SIGNS: Blood pressure 130/81, pulse 73, respiratory rate 14 and unlabored. The patient is 99% on room air. Height 5 feet 6 inches tall, weight 228 pounds, BMI calculated 36.8. GENERAL: Well-developed, well-nourished, well-hydrated exogenously obese 64-year-old female appearing stated age, pain is rated at 10/10. HEENT: Normocephalic, atraumatic. Pupils equal, round, reactive to light. EXTREMITIES: Show no clubbing, no cyanosis. Mild lower extremity nonpitting edema noted. MUSCULOSKELETAL: Skin color changes are over the lower lumbar spine in a dermatomal distribution radiating from the lumbar spine towards the upper buttock. No active lesions. There is some allodynia and hyperalgesia. [address] [address] PAIN MANAGEMENT CONSULTATION Name: MIGDALIA SNEED Room #: REG [facility]#: [id number] Admission: 09/16/19 Attend Phys: Gustavo Sneed DO Discharge: Date of : 59 Report #: [id number] ASSESSMENT: 1. Postherpetic neuralgia. 2. Herpes zoster. 3. Chronic low back pain. 4. Medication intolerance. PLAN: 1. The patient has returned today in followup visit having received preauthorization to undergo a lumbar epidural injection in hopes of improving her low back pain and herpes zoster pain. She has been advised risks and benefits of this procedure. These risks include but are not necessarily limited to bleeding, bruising, infection, worsening pain, no relief of pain, also risk of temporary or permanent muscle weakness, temporary or permanent nerve damage, possible paralysis and . The patient states understood and wished to proceed. 2. No medication changes made at today's visit. The patient will continue current medical therapy as previously prescribed. 3. We will see the patient back in followup visit in approximately 3-4 weeks. At that time, review efficacy of today's epidural injection and determine if next in the series is necessary DESCRIPTION OF PROCEDURE: L5-S1 interlaminar epidural steroid injection under fluoroscopic guidance. This is the first procedure of the first series that the patient is undergoing. After obtaining written consent, the patient was taken back to the fluoroscopy suite, placed in a prone position with pillow under the abdomen to decrease lumbar lordosis. The skin overlying the lumbosacral area was then prepped and draped in aseptic fashion. The L5-S1 vertebral interspace was then identified by AP fluoroscopy. The skin and subcutaneous tissue overlying the target site of injection was anesthetized with 3 mL 1% lidocaine. A 20-gauge 4.5-inch Tuohy needle was then advanced under fluoroscopic guidance towards the epidural space using midline approach. The epidural space was identified using loss of resistance to air technique. After negative aspiration for heme or cerebrospinal fluid, a total of 1 mL of Omnipaque was injected. A lumbar epidurogram was confirmed using both AP and lateral fluoroscopy. After negative aspiration for heme or cerebrospinal fluid, 5 mL of a solution containing 2 mL 40 mg/mL 80 mg total triamcinolone along with 3 mL of lidocaine 1% was injected in increments. Contrast spread was noted post epidural space. The needle was then retracted approximately half way and needle tract flushed with 1 mL of 1% lidocaine. Needle was then removed. There were no apparent sensory or motor deficits in the lower extremity following the procedure. A sterile bandage was placed over the injection site. [address] [address] PAIN MANAGEMENT CONSULTATION Name: JUVE SNEEDN Miranda Room #: REG [facility] Blum#: [id number] Admission: 09/16/19 Attend Phys: Gustavo Sneed DO Discharge: Date of : 59 Report #: [id number] The heart rate, pulse, oximetry and blood pressure were continuously monitored after the procedure. There were no apparent complications. The patient tolerated the procedure well and was carefully escorted to the recovery room in stable condition. There were no apparent complications. After meeting discharge criteria, the patient was then discharged home. <ELECTRONICALLY SIGNED> By: Gustavo Sneed DO 09/30/19 1247 1141 1853 Gustavo Sneed DO /nt
== END | disposition home or self-care (01) ==
LOC: PAIN 06:59
DX: G89.29 Other chronic pain (principal); B02.29 Other postherpetic nervous system involvement; B02.9 Zoster without complications; E66.9 Obesity, unspecified; F17.210 Nicotine dependence, cigarettes, uncomplicated; K21.9 Gastro-esophageal reflux disease without esophagitis; J44.9 Chronic obstructive pulmonary disease, unspecified; Z88.8 Allergy status to other drugs, medicaments and biological substances; Z79.899 Other long term (current) drug therapy; Z68.36 Body mass index [BMI] 36.0-36.9, adult

== ENCOUNTER → 2019-09-30 | Outpatient (CLI) | payer OTHER ==
[~2019-09-30] VITALS: Ht 167.6 cm; Wt 103.6 kg
[2019-09-30 08:41] VITALS: BP 141/74
--- NOTE | 2019-09-30 08:54 | NUR ---
Pain Clinic Assessment: 1. History of Osteoarthritis: DENIES History of Rheumatoid Arthritis: DENIES 2. Height: 5 ft. 6 in. 167.6 cm. Weight: 228.4 lb. oz. 103.602 kg. Patient's BMI: 36.9 3. Vital Signs: BP: 141/74 Pulse: 74 Resp: 18 Temp: 02 Sat: 100 ECG Mon: 4. Pain Intensity: 7 5. Fall Risk: Dizziness: N Needs help standing or walking: N Fallen in the last 3 months: N Fall risk comments: 6. Patient on Blood Thinner: None 7. History of Hypertension: N 8. Opioid Therapy greater than 6 weeks: Y Opiate Contract Signed: 9. Risk Assessment Tool Provided: low-3 10. Functional Assessment Tool: 51/ 11. Recreational Drug Use: Never Drug Type: Tobacco Use: Current Every Day Smoker Tobacco Type: Cigarettes Amount or Packs/day: 10 How Many Years: 45 Alcohol Use: No Frequency: Quant:
--- NOTE | 2019-10-07 13:04 | HPC ---
[address] [address] PAIN MANAGEMENT CONSULTATION Name: MIGDALIA SNEED Room #: REG [facility] Kaylynn#: [id number] Admission: 09/30/19 Attend Phys: Gustavo Sneed DO Discharge: Date of : 59 Report #: [id number] THIS REPORT FOR: //name// CC: Gustavo Walter MD DATE OF SERVICE: 09/30/2019 CHIEF COMPLAINT: Postherpetic neuralgia, chronic low back pain. HISTORY OF PRESENT ILLNESS: As you know, the patient is a 64-year-old female who was referred to our service for long-standing history of postherpetic neuralgia with low back symptoms. She underwent a lumbar epidural injection under fluoroscopic guidance per the request of the primary care physician to determine if her symptoms would improve. She reports 50% improvement in overall pain initially with a slow and progressive return of symptoms, now she is reporting 30% total overall improvement. She returns today in followup visit to begin the preauthorization process to undergo second in the series of epidural injections in hopes of improving pain further. She is placing pain today at around 7/10. She is very pleased with response to the initial injection, returning today to begin the authorization process to undergo next in the series. ALLERGIES: MORPHINE, CODEINE, METRONIDAZOLE, METOCLOPRAMIDE and PLAVIX. CURRENT MEDICATIONS: Potassium chloride, pravastatin, Carafate, Linzess, aspirin, omeprazole, albuterol, Zenpep, lorazepam, tamsulosin, Tessalon Perles, Trelegy Ellipta, erythromycin, acyclovir, furosemide, hydrochlorothiazide, ranitidine, promethazine, hydrocodone and B and O suppositories. SOCIAL HISTORY: The patient denies tobacco, alcohol, IV or illicit drug use. She is unaccompanied today. IMAGING: No new imaging available. PQRS: The patient has no specific arthritic changes or rheumatoid arthritis. She is placing pain intensity today at 7/10. She is not a fall risk, has not had a fall in last 3 months. She is not on blood thinners, not treated for hypertension. She is on chronic opioids and has a low opioid addiction potential. Pain impact score 51/70, severe interference of daily activities secondary to pain. PHYSICAL EXAMINATION: VITAL SIGNS: Blood pressure 141/74, pulse 74, respiratory rate 18 and unlabored. The patient is 100% on room air. Height 5 feet 6 inches tall, [facility] [address] [place] [address] PAIN MANAGEMENT CONSULTATION Name: MIGDALIA SNEED Room #: REG [facility]#: [id number] Admission: 09/30/19 Attend Phys: Gustavo Sneed DO Discharge: Date of : 59 Report #: [id number] weight 228.4 pounds, BMI calculated 36.9. GENERAL: Well-developed, well-nourished, well-hydrated exogenously obese 64-year-old female, appearing stated age, pain is rated at 7/10. HEENT: Normocephalic, atraumatic. Pupils equal, round, reactive to light. EXTREMITIES: Show no clubbing, no cyanosis. There is mild lower extremity edema noted, nonpitting. MUSCULOSKELETAL: There are skin color changes over the lower lumbar spine in a dermatomal distribution, typical for her postherpetic neuralgia type lesions. There are no active lesions. There is allodynia and hyperalgesia. Lumbar provocation testing met with increased pain. ASSESSMENT: 1. Postherpetic neuralgia. 2. Herpes zoster. 3. Chronic intractable low back pain. PLAN: 1. The patient returns today in followup visit having noted approximately 50% improvement in overall pain with the epidural injection provided at last visit. Unfortunately, her symptoms have begun to return and she is now giving a pain score of 7/10, 30% improvement overall. She returns today requesting next in the series of lumbar epidural injections to address this postherpetic issue. We are pleased to see that the patient has done well with this initial injection. We are hopeful she will see improvement with the second in the series. The patient was advised that we will have to obtain authorization before she could undergo an epidural injection. Authorization will be initiated today. We are hopeful will have this information back and available to her so that she can have a shot in the next couple of days. 2. We will contact the patient once we have authorization for her to undergo next in the series of epidural injections. We are hopeful we will have this information quickly. We will keep her apprised of our progress with this authorization process. 3. No medication changes made at today's visit. The patient to continue current medical therapy. <ELECTRONICALLY SIGNED> By: Gustavo Sneed DO 10/07/19 1304 0917 1858 Gustavo Sneed DO /nt
== END ==
LOC: PAIN 06:41
DX: M54.5 Low back pain (principal); B02.29 Other postherpetic nervous system involvement; Z88.8 Allergy status to other drugs, medicaments and biological substances; Z79.899 Other long term (current) drug therapy

== ENCOUNTER 2019-10-02 09:02 | Emergency (ER) | payer OTHER ==
[~2019-10-02] VITALS: Ht 170.2 cm; Wt 102.1 kg
[~2019-10-02 09:02] MED LIST changes: -CARAFATE 11 GM/10 M1 PO; -ZOFRAN 4 MG ORAL4 MG PO
[2019-10-02 10:45] LABS: ABSOLUTE NEUTROPHILS 5.5 thou/uL (1.4-8.2); BASOPHILS 0.8 % (0.0-2.0); HEMOGLOBIN 12.8 gm/dL (12.0-15.0); LYMPHOCYTES 26.9 % (24.0-44.0); MCH 29.8 pg (26.0-34.0); MCHC 32.8 g/dL (28.0-37.0); MCV 90.9 fL (80.0-100.0); PLATELET COUNT 319 thou/uL (150-400); POLYS 61.3 % (36.0-66.0); RBC 4.29 mil/uL (4.20-5.00); WBC 8.9 thou/uL (4.0-11.0)
[2019-10-02 10:53] LABS: ANION GAP < 0 mmol/L (7-16); BUN 10 mg/dL (7-18); CALCIUM 9.3 mg/dL (8.5-10.1); CHLORIDE 97 mmol/L (98-107); CO2 27 mmol/L (21-32); GLUCOSE 94 mg/dL (74-106); POTASSIUM 3.6 mmol/L (3.5-5.1); SODIUM 120 mmol/L (136-145)
[2019-10-02 10:54] LABS: LIPASE 73 U/L (73-393); MAGNESIUM 2.2 mg/dL (1.8-2.4)
[2019-10-02] MEDS ORDERED: ZOFRAN 4 MG ORAL4 MG PO (11:42)
[2019-10-02 12:23] VITALS: BP 119/72
[2019-10-14] MEDS ORDERED: CARAFATE 11 GM/10 M1 PO (09:35)
== END 2019-10-02 12:26 | disposition home or self-care (01) ==
LOC: ER 09:02
PROVIDERS: Emergency Medicine
DX: B34.9 Viral infection, unspecified (principal); F17.210 Nicotine dependence, cigarettes, uncomplicated; Z90.49 Acquired absence of other specified parts of digestive tract; Z90.710 Acquired absence of both cervix and uterus; Z88.1 Allergy status to other antibiotic agents; Z88.6 Allergy status to analgesic agent; Z88.8 Allergy status to other drugs, medicaments and biological substances

== ENCOUNTER 2019-10-09 06:34 | Emergency (ER) | payer OTHER ==
[~2019-10-09] VITALS: Ht 170.2 cm; Wt 102.5 kg
[~2019-10-09 06:34] MED LIST changes: +ZOFRAN 4 MG ORAL4 MG PO
[2019-10-09 08:11] VITALS: BP 104/49
[2019-10-09] MEDS ORDERED: CARAFATE 11 GM/10 M1 PO (08:16)
[2019-10-14] MEDS ORDERED: CARAFATE 11 GM/10 M1 PO (09:35)
== END 2019-10-09 08:29 | disposition home or self-care (01) ==
LOC: ER 06:34
DX: K21.0 Gastro-esophageal reflux disease with esophagitis (principal); B02.29 Other postherpetic nervous system involvement; G89.29 Other chronic pain; M54.9 Dorsalgia, unspecified; F17.210 Nicotine dependence, cigarettes, uncomplicated; Z90.710 Acquired absence of both cervix and uterus; Z90.49 Acquired absence of other specified parts of digestive tract; Z98.890 Other specified postprocedural states; Z88.5 Allergy status to narcotic agent; Z88.8 Allergy status to other drugs, medicaments and biological substances

== ENCOUNTER → 2019-10-14 | Outpatient (CLI) | payer OTHER ==
[~2019-10-14] VITALS: Ht 167.6 cm; Wt 102.8 kg
[~2019-10-14] MED LIST changes: +CARAFATE 11 GM/10 M1 PO
[2019-10-14 09:17] VITALS: BP 141/84
--- NOTE | 2019-10-15 09:19 | HPC ---
[facility] [place] [address] PAIN MANAGEMENT CONSULTATION Name: MIGDALIA SNEED Room #: [facility] [id number] Admission: 10/14/19 Attend Phys: Gustavo Sneed DO Discharge: Date of : 59 Report #: [id number] THIS REPORT FOR: //name// CC: Gustavo Walter DATE OF SERVICE: 10/14/2019 CHIEF COMPLAINT: Postherpetic neuralgia. HISTORY OF PRESENT ILLNESS: As you know, the patient is a morbidly obese 64-year-old female returning in followup visit requesting next in a series of lumbar epidural injections to address her postherpetic neuralgia which continues to be problematic. She has had slow outbreak of herpes zoster that continues despite treatment with retroviral medication. She is placing pain score 9/10. The epidural injection provided at the last visit gave improvement in symptoms of approximately 60% that is ongoing. She returns with pain level reported at 9/10 today. ALLERGIES: MORPHINE, CODEINE, METRONIDAZOLE, METOCLOPRAMIDE, PLAVIX, PROCHLORPERAZINE. CURRENT MEDICATIONS: See extensive list in chart. SOCIAL HISTORY: The patient reports herself a nonsmoker. Denies IV or illicit drug use. Denies any chronic alcohol use. She is unaccompanied today. IMAGING: No new imaging available. PHYSICAL EXAMINATION: VITAL SIGNS: Blood pressure 141/84, pulse is 89, respiratory rate 18 and unlabored. The patient is 97% on room air. Height 5 feet 6 inches tall, weight 226.6 pounds, BMI calculated 36.6. GENERAL: Well-developed, well-nourished, well-hydrated, morbidly obese 64-year-old female appearing stated age, pain is rated at 9/10. HEENT: Normocephalic, atraumatic. Pupils equal, round, reactive to light. EXTREMITIES: Show no clubbing, no cyanosis. MUSCULOSKELETAL: Lower extremity strength is symmetrical 5/5, intact to light touch from L1 through S2 dermatomes. There are changes in the skin color texture and there are lesions noted in dermatomal distribution from the low back radiating towards the bilateral buttock area. Lumbar provocation testing is met with some increasing pain mainly with rotation and lateral flexion. ASSESSMENT: 1. Postherpetic neuralgia. 2. Herpes zoster. [address] [address] PAIN MANAGEMENT CONSULTATION Name: MIGDALIA SNEED Room #: [facility] [id number] Admission: 10/14/19 Attend Phys: Gustavo Sneed DO Discharge: Date of : 59 Report #: [id number] 3. Chronic intractable pain. PLAN: 1. The patient returns today in followup visit having noted improvement with the previous lumbar epidural injection. She returns for the second in the series of epidural injections in hopes of improving pain further. She continues on antiretroviral medications, though her symptoms continued to be problematic. She will likely need to follow up with Infectious Disease to help discontinue the progressive process of her disease. She returns today requesting epidural injection in hopes of seeing similar improvement as she saw with previous epidural injection. She was advised risks and benefits, states understood and wished to proceed. 2. No medication changes made at today's visit. The patient will continue current medical therapy as prior prescribed. 3. We will see the patient back in followup visit on an as needed basis for possible next in the series of epidural injections. I have advised the patient this is the second in the series. She has one remaining epidural injection that can be provided over the next 5 months. Her next 6-month series begins 03/17/2020. DESCRIPTION OF PROCEDURE: L5-S1 paramedian epidural steroid injection under fluoroscopic guidance. This is the second procedure of the first series that the patient is undergoing. After obtaining written consent, the patient was taken back to the fluoroscopy suite, placed in a prone position with pillow under the abdomen to decrease lumbar lordosis. The skin overlying the lumbosacral area was then prepped and draped in aseptic fashion. The L5-S1 vertebral interspace was then identified by AP fluoroscopy. The skin and subcutaneous tissue overlying the target site of injection was anesthetized with 3 mL 1% lidocaine. A 20-gauge 4-1/2 inch Tuohy needle was then advanced under fluoroscopic guidance towards the epidural space using a paramedian approach. The epidural space was identified using loss of resistance to air technique. After negative aspiration for heme or cerebrospinal fluid, a total of 1 mL of Omnipaque was injected. A lumbar epidurogram was confirmed using both AP and lateral fluoroscopy. After negative aspiration for heme or cerebrospinal fluid, 5 mL of a solution containing 2 mL 40 mg/mL 80 mg total triamcinolone along with 3 mL of lidocaine 1% was injected in increments. Contrast spread was noted post epidural space. The needle was then retracted approximately half way and needle tract flushed with 1 mL of 1% lidocaine. Needle was then removed. There were no apparent sensory or motor deficits in the lower extremity following the procedure. A sterile bandage was placed over the injection site. The heart rate, pulse, oximetry and blood pressure were continuously monitored after the procedure. There were no apparent complications. The patient [address] [address] PAIN MANAGEMENT CONSULTATION Name: MIGDALIA SNEED Room #: REG [facility]#: [id number] Admission: 10/14/19 Attend Phys: Gustavo Sneed DO Discharge: Date of : 59 Report #: [id number] tolerated the procedure well and was carefully escorted to the recovery room in stable condition. There were no apparent complications. After meeting discharge criteria, the patient was then discharged home. <ELECTRONICALLY SIGNED> By: Gustavo Sneed DO 10/15/19918 Gustavo Sneed DO /nt
== END | disposition home or self-care (01) ==
LOC: PAIN 06:42
DX: M54.16 Radiculopathy, lumbar region (principal); B02.29 Other postherpetic nervous system involvement; G89.29 Other chronic pain; E66.01 Morbid (severe) obesity due to excess calories; K21.9 Gastro-esophageal reflux disease without esophagitis; J44.9 Chronic obstructive pulmonary disease, unspecified; F17.210 Nicotine dependence, cigarettes, uncomplicated; Z98.890 Other specified postprocedural states; Z79.899 Other long term (current) drug therapy; Z68.36 Body mass index [BMI] 36.0-36.9, adult; Z88.8 Allergy status to other drugs, medicaments and biological substances; Z87.19 Personal history of other diseases of the digestive system

== ENCOUNTER 2019-10-21 05:45 | Emergency (ER) | payer OTHER ==
[~2019-10-21] VITALS: Ht 170.2 cm; Wt 101.2 kg
[2019-10-21 07:17] LABS: ABSOLUTE NEUTROPHILS 8.3 thou/uL (1.4-8.2); BASOPHILS 0.3 % (0.0-2.0); EOSINOPHILS 0.6 % (0.0-3.0); HEMATOCRIT 37.3 % (37.0-47.0); HEMOGLOBIN 12.1 gm/dL (12.0-15.0); LYMPHOCYTES 20.5 % (24.0-44.0); MCH 29.4 pg (26.0-34.0); MCHC 32.4 g/dL (28.0-37.0); MCV 90.6 fL (80.0-100.0); MONOCYTES 5.7 % (1.0-8.0); PLATELET COUNT 430 thou/uL (150-400); POLYS 72.9 % (36.0-66.0); RBC 4.11 mil/uL (4.20-5.00); RDW 15.8 % (10.5-14.5); WBC 11.4 thou/uL (4.0-11.0)
[2019-10-21 07:28] LABS: ANION GAP 10 mmol/L (7-16); BUN 21 mg/dL (7-18); CALCIUM 9.5 mg/dL (8.5-10.1); CHLORIDE 105 mmol/L (98-107); CO2 25 mmol/L (21-32); GLUCOSE 99 mg/dL (74-106); POTASSIUM 4.1 mmol/L (3.5-5.1); SODIUM 140 mmol/L (136-145)
[2019-10-21 07:28] LABS: URINE BILIRUBIN NEGATIVE (Negative); URINE BLOOD NEGATIVE (Negative); URINE CLARITY CLEAR; URINE COLOR GREEN; URINE GLUCOSE-RANDOM* NEGATIVE (Negative); URINE KETONES NEGATIVE (Negative); URINE LEUKOCYTES-REFLEX NEGATIVE (Negative); URINE NITRITE-REFLEX NEGATIVE (Negative); URINE PROTEIN (DIPSTICK) NEGATIVE (Negative); URINE UROBILINOGEN 0.2 E.U./dl (0.2-1.0)
[2019-10-21 07:37] LABS: AMP/METHAMP Negative (Negative); BARBITURATES Negative (Negative); BENZODIAZEPINES Negative (Negative); COCAINE Negative (Negative); METHADONE Negative (Negative); OPIATES POSITIVE (Negative); PCP Negative (Negative)
[2019-10-21 07:38] LABS: ALBUMIN 3.1 g/dL (3.4-5.0); MAGNESIUM 2.1 mg/dL (1.8-2.4); PHOSPHORUS 4.8 mg/dL (2.5-4.9); SGOT 15 U/L (15-37); SGPT 17 U/L (30-65); TOTAL BILIRUBIN 0.2 mg/dL (<0.1-1.0); TOTAL PROTEIN 6.6 g/dL (6.4-8.2); TROPONIN-I <0.06 ng/mL (<0.06)
--- NOTE | 2019-10-21 08:40 | EKG ---
[facility] [place] [address] ELECTROCARDIOGRAM REPORT Name: JUVE SNEEDN Miranda [facility] [id number] Admission: 10/21/19 Attend Phys: Discharge: Date of : 59 Report #: [id number] THIS REPORT FOR: //name// [facility] ED Test Date: 2019-10-21 Test Time: 06:45:02 Pat Name: MIGDALIA SNEED Department: Room: Gender: F Shop Director: JUDITH : 1955 Requested By: Jayson Yanez Order Number: [id number] MD: Eduardo Guy Measurements Intervals [place] Rate: 66 P: 69 LA: 168 QRS: 52 QRSD: 96 T: 21 QT: 386 QTc: 405 Interpretive Statements Sinus rhythm Baseline wander in lead(s) No previous ECGs available for comparison Electronically Signed On 10-21-2019 8:39:59 BRANCH EXAMINER by Eduardo Guy [email or web address] <ELECTRONICALLY SIGNED> By: Eduardo Guy MD, [facility] 10/21/19 0839 0645 0645 Eduardo Guy MD, FACC /EPI
[2019-10-21 10:03] VITALS: BP 118/72
== END 2019-10-21 10:04 | disposition home or self-care (01) ==
LOC: ER 05:45
PROVIDERS: Emergency Medicine
DX: J06.9 Acute upper respiratory infection, unspecified (principal); R29.0 Tetany; R11.0 Nausea; R20.2 Paresthesia of skin; E66.9 Obesity, unspecified; F17.210 Nicotine dependence, cigarettes, uncomplicated; Z68.34 Body mass index [BMI] 34.0-34.9, adult; Z90.710 Acquired absence of both cervix and uterus; Z90.49 Acquired absence of other specified parts of digestive tract; Z88.1 Allergy status to other antibiotic agents; Z88.6 Allergy status to analgesic agent; Z88.8 Allergy status to other drugs, medicaments and biological substances; X02.0XXD Exposure to flames in controlled fire in building or structure, subsequent encounter

== ENCOUNTER 2019-10-29 07:12 | Emergency (ER) | payer OTHER ==
[~2019-10-29] VITALS: Ht 170.2 cm; Wt 102.5 kg
[2019-10-29] MEDS ORDERED: DICLOFENAC SOD100 G1 TOP (08:20)
[2019-10-29] MEDS ORDERED: LIDODERM1 EACH TRANSDERM (08:21)
[2019-10-29] MEDS ORDERED: METHOCARBAMOL500 M2 PO (08:21)
--- NOTE | 2019-10-29 08:42 | EKG ---
[address] [place] [address] ELECTROCARDIOGRAM REPORT Name: MIGDALIA SNEED Room #: [facility]#: [id number] Admission: Attend Phys: Discharge: Date of : 59 Report #: [id number] THIS REPORT FOR: //name// [facility] ED Test Date: 2019-10-29 Test Time: 07:30:35 Pat Name: MIGDALIA SNEED Department: Room: Gender: Computer Publisher: wilda : 1955 Requested By: Antony Ramos Order Number: [id number] MD: Candelario Rodriguez Measurements Intervals [place] Rate: 81 P: 54 NC: 166 QRS: 30 QRSD: 90 T: 17 QT: 348 QTc: 404 Interpretive Statements Sinus rhythm Probable left atrial enlargement Compared to ECG 10/21/2019 06:45:02 No significant changes Electronically Signed On 10-29-2019 8:42:15 WORKERS COMPENSATION COORDINATOR by Candelario Rodriguez [email or web address] <ELECTRONICALLY SIGNED> By: Candelario Rodriguez MD 10/29/19 0842 0730 0730 Candelario Rodriguez MD /ABEL
[2019-10-29 09:12] LABS: ABSOLUTE NEUTROPHILS 6.6 thou/uL (1.4-8.2); BASOPHILS 0.7 % (0.0-2.0); EOSINOPHILS 0.5 % (0.0-3.0); HEMATOCRIT 36.9 % (37.0-47.0); HEMOGLOBIN 11.9 gm/dL (12.0-15.0); LYMPHOCYTES 31.6 % (24.0-44.0); MCH 29.5 pg (26.0-34.0); MCHC 32.3 g/dL (28.0-37.0); MCV 91.4 fL (80.0-100.0); MONOCYTES 5.1 % (1.0-8.0); PLATELET COUNT 385 thou/uL (150-400); POLYS 62.1 % (36.0-66.0); RBC 4.03 mil/uL (4.20-5.00); RDW 16.6 % (10.5-14.5); WBC 10.6 thou/uL (4.0-11.0)
[2019-10-29 09:22] LABS: URINE BILIRUBIN NEGATIVE (Negative); URINE BLOOD NEGATIVE (Negative); URINE CLARITY CLEAR; URINE COLOR GREEN; URINE GLUCOSE-RANDOM* NEGATIVE (Negative); URINE KETONES NEGATIVE (Negative); URINE LEUKOCYTES-REFLEX NEGATIVE (Negative); URINE NITRITE-REFLEX NEGATIVE (Negative); URINE PROTEIN (DIPSTICK) NEGATIVE (Negative); URINE SPECIFIC GRAVITY 1.015 (1.005-1.035); URINE UROBILINOGEN 0.2 E.U./dl (0.2-1.0)
[2019-10-29 09:23] LABS: ANION GAP 5 mmol/L (7-16); BUN 14 mg/dL (7-18); CALCIUM 8.7 mg/dL (8.5-10.1); CHLORIDE 109 mmol/L (98-107); CO2 27 mmol/L (21-32); GLUCOSE 87 mg/dL (74-106); SODIUM 141 mmol/L (136-145)
[2019-10-29 09:33] LABS: MAGNESIUM 1.9 mg/dL (1.8-2.4); TROPONIN-I <0.06 ng/mL (<0.06)
[2019-10-29 10:20] VITALS: BP 129/74
== END 2019-10-29 10:21 | disposition home or self-care (01) ==
LOC: ER 07:12
PROVIDERS: Emergency Medicine
DX: R20.0 Anesthesia of skin (principal); R20.2 Paresthesia of skin; R06.00 Dyspnea, unspecified; F17.210 Nicotine dependence, cigarettes, uncomplicated; Z88.5 Allergy status to narcotic agent; Z88.8 Allergy status to other drugs, medicaments and biological substances; Z88.1 Allergy status to other antibiotic agents; Z79.899 Other long term (current) drug therapy; Z79.82 Long term (current) use of aspirin; Z90.710 Acquired absence of both cervix and uterus; Z90.49 Acquired absence of other specified parts of digestive tract

== ENCOUNTER 2019-11-09 21:36 | Emergency (ER) | payer OTHER ==
[~2019-11-09] VITALS: Ht 170.2 cm; Wt 101.2 kg
[~2019-11-09 21:36] MED LIST changes: +DICLOFENAC SOD100 G1 TOP; +LIDODERM1 EACH TRANSDERM
[2019-11-09 22:22] LABS: ABSOLUTE NEUTROPHILS 5.1 thou/uL (1.4-8.2); BASOPHILS 0.6 % (0.0-2.0); EOSINOPHILS 0.9 % (0.0-3.0); HEMATOCRIT 38.1 % (37.0-47.0); HEMOGLOBIN 12.2 gm/dL (12.0-15.0); LYMPHOCYTES 38.4 % (24.0-44.0); MCH 29.6 pg (26.0-34.0); MCHC 32.2 g/dL (28.0-37.0); MCV 92.1 fL (80.0-100.0); MONOCYTES 6.7 % (1.0-8.0); PLATELET COUNT 332 thou/uL (150-400); POLYS 53.4 % (36.0-66.0); RBC 4.13 mil/uL (4.20-5.00); RDW 16.7 % (10.5-14.5); WBC 9.5 thou/uL (4.0-11.0)
[2019-11-09 23:21] LABS: ANION GAP 13 mmol/L (7-16); BUN 21 mg/dL (7-18); CALCIUM 8.9 mg/dL (8.5-10.1); CHLORIDE 105 mmol/L (98-107); CO2 25 mmol/L (21-32); CREATININE 1.2 mg/dL (0.6-1.0); GLUCOSE 97 mg/dL (74-106); POTASSIUM 3.9 mmol/L (3.5-5.1); SODIUM 143 mmol/L (136-145)
[2019-11-09 23:31] LABS: ALBUMIN 3.1 g/dL (3.4-5.0); DIRECT BILIRUBIN < 0.1 mg/dL (<0.1-0.2); LIPASE 167 U/L (73-393); SGOT 17 U/L (15-37); SGPT 27 U/L (30-65); TOTAL BILIRUBIN 0.2 mg/dL (<0.1-1.0); TOTAL PROTEIN 6.7 g/dL (6.4-8.2); TROPONIN-I <0.06 ng/mL (<0.06)
[2019-11-09 23:53] VITALS: BP 134/76
--- NOTE | 2019-11-10 07:56 | EKG ---
[place] [address] [facility] [place] [address] ELECTROCARDIOGRAM REPORT Name: JUVE SNEEDN Miranda Room #: [facility]#: [id number] Admission: 11/09/19 Attend Phys: Discharge: 11/10/19 Date of : 59 Report #: [id number] THIS REPORT FOR: //name// [facility] ED Test Date: 2019-11-09 Test Time: 21:45:07 Pat Name: MIGDALIA SNEED Department: Room: Gender: F Systems Requirements Planner: [facility] : 1955 Requested By: Filemon Webber Order Number: [id number] MD: Eduardo Guy Measurements Intervals [place] Rate: 82 P: 67 ME: 160 QRS: 41 QRSD: 75 T: 32 QT: 351 QTc: 410 Interpretive Statements Sinus rhythm Normal tracing Baseline wander in lead(s) II,III,aVF Compared to ECG 10/29/2019 07:30:35 No significant changes Electronically Signed On 11-10-2019 7:56:20 SUPERVISOR FUSING ROOM by Eduardo Guy [email or web address] <ELECTRONICALLY SIGNED> By: Eduardo Guy MD, [facility] 11/10/19 0756 2145 44 Eduardo Guy MD, [facility] /EPI
== END 2019-11-10 00:04 | disposition home or self-care (01) ==
LOC: ER 21:36
PROVIDERS: Emergency Medicine
DX: R07.9 Chest pain, unspecified (principal); M79.651 Pain in right thigh; F17.210 Nicotine dependence, cigarettes, uncomplicated; Z90.49 Acquired absence of other specified parts of digestive tract; Z90.710 Acquired absence of both cervix and uterus; Z88.1 Allergy status to other antibiotic agents; Z88.6 Allergy status to analgesic agent

== ENCOUNTER 2019-11-16 04:59 | Emergency (ER) | payer OTHER ==
[~2019-11-16] VITALS: Ht 170.2 cm; Wt 101.2 kg
[2019-11-16 06:50] LABS: ABSOLUTE NEUTROPHILS 4.7 thou/uL (1.4-8.2); BASOPHILS 0.4 % (0.0-2.0); EOSINOPHILS 0.7 % (0.0-3.0); HEMATOCRIT 38.2 % (37.0-47.0); LYMPHOCYTES 32.1 % (24.0-44.0); MCH 29.1 pg (26.0-34.0); MCHC 31.4 g/dL (28.0-37.0); MCV 92.5 fL (80.0-100.0); MONOCYTES 6.5 % (1.0-8.0); PLATELET COUNT 315 thou/uL (150-400); POLYS 60.3 % (36.0-66.0); RBC 4.13 mil/uL (4.20-5.00); RDW 16.9 % (10.5-14.5); WBC 7.8 thou/uL (4.0-11.0)
[2019-11-16 07:04] LABS: CALCIUM 9.5 mg/dL (8.5-10.1); POTASSIUM 3.4 mmol/L (3.5-5.1)
[2019-11-16 08:33] VITALS: BP 133/58
--- NOTE | 2019-11-20 12:41 | EKG ---
[address] [employer] [place] [address] ELECTROCARDIOGRAM REPORT Name: TRISTIAN SNEEDLYN Miranda [facility] [id number] Admission: 11/16/19 Attend Phys: Discharge: 11/16/19 Date of : 59 Report #: [id number] THIS REPORT FOR: //name// [facility] ED Test Date: 2019-11-16 Test Time: 05:21:36 Pat Name: MIGDALIA SNEED Department: Room: Gender: F Train Controller: Nkechi LUTHER RN : 1955 Requested By: Amy Kang Order Number: [id number] MD: Candelario Rodriguez Measurements Intervals [place] Rate: 79 P: 73 DE: 164 QRS: 49 QRSD: 75 T: 31 QT: 361 QTc: 414 Interpretive Statements Sinus rhythm Consider right atrial enlargement Compared to ECG 11/09/2019 21:45:07 No significant changes Electronically Signed On 11-20-2019 12:41:19 SHOE STITCHER by Candelario Rodriguez [email or web address] <ELECTRONICALLY SIGNED> By: Candelario Rodriguez MD 11/20/19 1241 0521 0 Candelario Rodriguez MD /ABEL
== END 2019-11-16 08:34 | disposition home or self-care (01) ==
LOC: ER 04:59
PROVIDERS: Emergency Medicine
DX: R68.84 Jaw pain (principal); F17.210 Nicotine dependence, cigarettes, uncomplicated; Z90.710 Acquired absence of both cervix and uterus; Z90.49 Acquired absence of other specified parts of digestive tract; Z88.1 Allergy status to other antibiotic agents; Z88.6 Allergy status to analgesic agent

== ENCOUNTER 2019-12-27 06:11 | Emergency (ER) | payer OTHER ==
[~2019-12-27] VITALS: Ht 170.2 cm; Wt 105.7 kg
[2019-12-27] MEDS ORDERED: SPIRONOLACTONE25 MG PO (06:21)
[2019-12-27 07:04] LABS: URINE BILIRUBIN NEGATIVE (Negative); URINE BLOOD NEGATIVE (Negative); URINE CLARITY CLEAR; URINE GLUCOSE-RANDOM* NEGATIVE (Negative); URINE KETONES NEGATIVE (Negative); URINE LEUKOCYTES-REFLEX TRACE (Negative); URINE NITRITE-REFLEX NEGATIVE (Negative); URINE PROTEIN (DIPSTICK) NEGATIVE (Negative); URINE SPECIFIC GRAVITY >= 1.030 (1.005-1.035); URINE UROBILINOGEN 0.2 E.U./dl (0.2-1.0)
[2019-12-27 07:06] LABS: URINE COLOR GREEN
[2019-12-27] MEDS ORDERED: METHOCARBAMOL500 M2 PO (07:37)
[2019-12-27 07:41] VITALS: BP 128/74
== END 2019-12-27 06:13 | disposition home or self-care (01) ==
LOC: ER 06:11
PROVIDERS: Emergency Medicine
DX: S39.012A Strain of muscle, fascia and tendon of lower back, initial encounter (principal); F17.210 Nicotine dependence, cigarettes, uncomplicated; Z90.710 Acquired absence of both cervix and uterus; Z90.49 Acquired absence of other specified parts of digestive tract; Z88.1 Allergy status to other antibiotic agents; Z88.6 Allergy status to analgesic agent; Z88.8 Allergy status to other drugs, medicaments and biological substances; X58.XXXA Exposure to other specified factors, initial encounter; Y93.89 Activity, other specified; Y92.89 Other specified places as the place of occurrence of the external cause; Y99.8 Other external cause status

== ENCOUNTER 2020-01-01 06:02 | Inpatient (IN) | payer OTHER ==
[~2020-01-01] VITALS: Ht 152.4 cm; Wt 107.5 kg
[~2020-01-01 06:02] MED LIST changes: +SPIRONOLACTONE25 MG PO
[2020-01-01 06:06] VITALS: BP 122/74
[2020-01-01] MEDS ORDERED: NIZATIDINE150 MG PO (06:21)
[2020-01-01 06:36] LABS: URINE BILIRUBIN NEGATIVE (Negative); URINE BLOOD NEGATIVE (Negative); URINE CLARITY CLEAR; URINE COLOR GREEN; URINE GLUCOSE-RANDOM* NEGATIVE (Negative); URINE KETONES NEGATIVE (Negative); URINE LEUKOCYTES-REFLEX NEGATIVE (Negative); URINE NITRITE-REFLEX NEGATIVE (Negative); URINE PROTEIN (DIPSTICK) NEGATIVE (Negative); URINE UROBILINOGEN 0.2 E.U./dl (0.2-1.0)
[2020-01-01 06:55] LABS: ABSOLUTE NEUTROPHILS 5.4 thou/uL (1.4-8.2); BASOPHILS 0.9 % (0.0-2.0); EOSINOPHILS 0.8 % (0.0-3.0); HEMATOCRIT 40.4 % (37.0-47.0); HEMOGLOBIN 12.9 gm/dL (12.0-15.0); LYMPHOCYTES 23.7 % (24.0-44.0); MCH 29.5 pg (26.0-34.0); MCHC 31.9 g/dL (28.0-37.0); MCV 92.4 fL (80.0-100.0); MONOCYTES 6.1 % (1.0-8.0); PLATELET COUNT 361 thou/uL (150-400); POLYS 68.5 % (36.0-66.0); RBC 4.37 mil/uL (4.20-5.00); RDW 16.7 % (10.5-14.5); WBC 7.9 thou/uL (4.0-11.0)
[2020-01-01 07:03] LABS: CALCIUM 8.9 mg/dL (8.5-10.1); POTASSIUM 3.7 mmol/L (3.5-5.1)
[2020-01-01 07:09] LABS: ALBUMIN 3.4 g/dL (3.4-5.0); TOTAL BILIRUBIN 0.2 mg/dL (<0.1-1.0); TOTAL PROTEIN 7.1 g/dL (6.4-8.2)
[2020-01-01 07:55] VITALS: BP 154/68
--- NOTE | 2020-01-01 08:04 | NUR ---
ATTEMPTED TO CALL REPORT. INPATIENT NURSE BUSY
--- NOTE | 2020-01-01 08:16 | NUR ---
ATTEMPTED TO CALL REPORT. INPATIENT NURSE UNABLE TO TAKE REPORT.
[2020-01-01 08:32] VITALS: BP 160/65
--- NOTE | 2020-01-01 14:44 | NUR ---
Patient admitted from ED at 0845. Patient admitted per Dr Walter for abdominal and lower back pain with nausea. Patient has requested "Dilaudid" for pain, "Lorazepam" for anxiety and "Phenergan" for nausea. She has called Dr Walter twice from her phone to ask for these medications as she can quickly become impatient (she has been asking for pain medications more often than she can get them; needs frequent reminders). Vital signs have been stable. She is on room air, is continent of bowel and bladder, is alert and oriented x's 4 and is NPO. No vomiting noted. Patient is up ad jose manuel to use bedside commode. Will continue to monitor.
[2020-01-01 20:06] VITALS: BP 122/67
--- NOTE | 2020-01-02 06:00 | NUR ---
Assumed pt care @1915. pt a&ox4. pt had a difficult time staying comfortable despites antianxiety and pains meds given. pt was able to fall asleep for a total of about 5hrs through out the night with interruptions when she request her meds. pt states would fall asleep after getting pain meds but when awake and asked if pain meds helped; pt would state pain at a 10/10. pt ambulates ind to the bsc. pt would call out if she needs assistance. no s/s of acute distress noted. reports off to day shift nurse
[2020-01-02 08:00] VITALS: BP 129/75
[2020-01-02 13:19] VITALS: BP 129/75
--- NOTE | 2020-01-02 14:16 | NUR ---
PT ADMITTED RELATED TO ACUTE ON CHRONIC ABD PAIN. CM REVIEWED CHART AND SPOKE WITH CARE TEAM. CM MET WITH PT AT BEDSIDE THIS DAY. PT IS A&O X4. CM ROLE INTRODUCED. PT INDICATED SHE LIVES IN A HOUSE WITH HER SPOUSE WITH 13 STEPS TO ENTER AND NO STEPS INSIDE. 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 PT INDICATED SHE HAS HOME O2 FOR PRN USE [facility]ROUGH [facility]. PT INDICATED SHE PLANS TO DISCHARGE HOME ONCE MEDICALLY STABLE. CARE TEAM INDICATED PT IS MEDICALLY STABLE TO DC HOME THIS DAY WITH NO NEEDS. NO OTHER CM INTERVENTION INDICATED. CASE CLOSED.
--- NOTE | 2020-01-02 16:05 | NUR ---
Patient discharged today per Dr Walter's orders at 1515. Patient verbalized an understanding to all discharge instructions prior to signing paperwork. Patient left with all belongings and . Vital signs stable throughout shift. Pain, anxiety and nausea managed with Phenergen Suppositories, Lorazepam IV push and Hydromorphone IV push. POC followed.
== END 2020-01-02 15:15 | disposition home or self-care (01) | DRG 392 ==
LOC: ER 06:02 → EROBS 08:01 → 4W 08:01 → ENTRNSPT 01-02 13:58 → EDTRNSPTSTS 01-02 14:03 → 4W 01-02 15:15
PROVIDERS: Emergency Medicine; ADMIT Family Medicine
DX: K58.9 Irritable bowel syndrome, unspecified (principal); K86.1 Other chronic pancreatitis; G89.29 Other chronic pain; R10.9 Unspecified abdominal pain; I50.9 Heart failure, unspecified; J44.9 Chronic obstructive pulmonary disease, unspecified; F12.90 Cannabis use, unspecified, uncomplicated; F17.210 Nicotine dependence, cigarettes, uncomplicated; M54.9 Dorsalgia, unspecified; M79.7 Fibromyalgia; Z90.710 Acquired absence of both cervix and uterus; Z90.49 Acquired absence of other specified parts of digestive tract; Z88.6 Allergy status to analgesic agent; Z88.8 Allergy status to other drugs, medicaments and biological substances; Z80.0 Family history of malignant neoplasm of digestive organs; Z79.899 Other long term (current) drug therapy
CPT/HCPCS: 10040

== ENCOUNTER 2020-01-02 17:29 | Emergency (ER) | payer OTHER ==
[~2020-01-02] VITALS: Ht 170.2 cm; Wt 105.7 kg
[~2020-01-02 17:29] MED LIST changes: +NIZATIDINE150 MG PO
[2020-01-02 19:30] LABS: ABSOLUTE NEUTROPHILS 6.9 thou/uL (1.4-8.2); BASOPHILS 0.5 % (0.0-2.0); EOSINOPHILS 0.6 % (0.0-3.0); HEMATOCRIT 35.2 % (37.0-47.0); HEMOGLOBIN 11.5 gm/dL (12.0-15.0); LYMPHOCYTES 19.3 % (24.0-44.0); MCH 30.2 pg (26.0-34.0); MCHC 32.7 g/dL (28.0-37.0); MCV 92.3 fL (80.0-100.0); MONOCYTES 5.9 % (1.0-8.0); PLATELET COUNT 328 thou/uL (150-400); POLYS 73.7 % (36.0-66.0); RBC 3.81 mil/uL (4.20-5.00); RDW 16.2 % (10.5-14.5); WBC 9.4 thou/uL (4.0-11.0)
[2020-01-02 19:44] LABS: ANION GAP 8 mmol/L (7-16); BUN 9 mg/dL (7-18); CALCIUM 8.5 mg/dL (8.5-10.1); CHLORIDE 110 mmol/L (98-107); CO2 27 mmol/L (21-32); GLUCOSE 112 mg/dL (74-106); POTASSIUM 3.5 mmol/L (3.5-5.1); SODIUM 145 mmol/L (136-145)
[2020-01-02 19:46] LABS: APTT 40.5 Seconds (24.5-32.8); PROTIME 10.4 Seconds (9.3-11.4)
[2020-01-02 19:52] LABS: ALBUMIN 3.2 g/dL (3.4-5.0); LIPASE 110 U/L (73-393); SGOT 15 U/L (15-37); SGPT 21 U/L (30-65); TOTAL BILIRUBIN 0.2 mg/dL (<0.1-1.0); TOTAL PROTEIN 6.4 g/dL (6.4-8.2); TROPONIN-I <0.06 ng/mL (<0.06)
[2020-01-02 20:57] VITALS: BP 114/59
== END 2020-01-02 20:48 | disposition home or self-care (01) ==
LOC: ER 17:29
PROVIDERS: Emergency Medicine
DX: K92.0 Hematemesis (principal); R10.9 Unspecified abdominal pain; G89.29 Other chronic pain; F17.210 Nicotine dependence, cigarettes, uncomplicated; Z90.710 Acquired absence of both cervix and uterus; Z90.49 Acquired absence of other specified parts of digestive tract; Z88.6 Allergy status to analgesic agent; Z88.8 Allergy status to other drugs, medicaments and biological substances

== ENCOUNTER 2020-02-12 12:44 | Emergency (ER) | payer OTHER ==
[~2020-02-12] VITALS: Ht 170.2 cm; Wt 105.7 kg
[2020-02-12 14:38] LABS: ABSOLUTE NEUTROPHILS 4.3 thou/uL (1.4-8.2); BASOPHILS 0.7 % (0.0-2.0); EOSINOPHILS 0.9 % (0.0-3.0); HEMOGLOBIN 12.6 gm/dL (12.0-15.0); LYMPHOCYTES 32.1 % (24.0-44.0); MCHC 32.4 g/dL (28.0-37.0); MCV 92.8 fL (80.0-100.0); MONOCYTES 6.8 % (1.0-8.0); PLATELET COUNT 357 thou/uL (150-400); POLYS 59.5 % (36.0-66.0); RDW 15.8 % (10.5-14.5); WBC 7.2 thou/uL (4.0-11.0)
[2020-02-12 14:56] LABS: ANION GAP 8 mmol/L (7-16); BUN 9 mg/dL (7-18); CALCIUM 9.2 mg/dL (8.5-10.1); CHLORIDE 106 mmol/L (98-107); CO2 26 mmol/L (21-32); CREATININE 0.9 mg/dL (0.6-1.0); GLUCOSE 91 mg/dL (74-106); POTASSIUM 3.7 mmol/L (3.5-5.1); SODIUM 140 mmol/L (136-145)
[2020-02-12 15:00] LABS: ALBUMIN 3.4 g/dL (3.4-5.0); DIRECT BILIRUBIN < 0.1 mg/dL (<0.1-0.2); LIPASE 59 U/L (73-393); SGOT 18 U/L (15-37); SGPT 17 U/L (30-65); TOTAL BILIRUBIN 0.2 mg/dL (<0.1-1.0); TOTAL PROTEIN 6.8 g/dL (6.4-8.2)
[2020-02-12 16:42] VITALS: BP 108/61
--- NOTE | 2020-02-13 08:19 | EKG ---
[facility] [place] [address] ELECTROCARDIOGRAM REPORT Name: MIGDALIA SNEED [id number] Admission: 02/12/20 Attend Phys: Discharge: 02/12/20 Date of : 59 Report #: [id number] THIS REPORT FOR: cc: Yuri Walter MD, Neal A. MD Lundgren, Craig H. MD [facility] ~ THIS REPORT FOR: //name// [facility] ED Test Date: 2020-02-12 Test Time: 12:54:28 Pat Name: MIGDALIA SNEED Department: Room: Gender: F Technology Lab Teacher: : 1955 Requested By: Cristian Zapata Order Number: [id number] MD: Eduardo Guy Measurements Intervals [place] Rate: 78 P: 54 SD: 157 QRS: 47 QRSD: 75 T: 21 QT: 368 QTc: 420 Interpretive Statements Sinus rhythm Anteroseptal infarct, age indeterminate Baseline wander in lead(s) V4 Compared to ECG 11/16/2019 05:21:36 Septal Q waves are now present Electronically Signed On 02-13-2020 8:18:07 CDT by Eduardo Guy [email or web address] <ELECTRONICALLY SIGNED> By: Eduardo Guy MD, [facility] 02/13/20 0818 1254 1254 Eduardo Guy MD, [facility] /EPI
== END 2020-02-12 16:54 | disposition home or self-care (01) ==
LOC: ER 12:44
PROVIDERS: Nurse Practitioner
DX: G89.29 Other chronic pain (principal); R10.84 Generalized abdominal pain; R42 Dizziness and giddiness; F17.210 Nicotine dependence, cigarettes, uncomplicated; Z88.5 Allergy status to narcotic agent; Z88.8 Allergy status to other drugs, medicaments and biological substances; Z90.710 Acquired absence of both cervix and uterus; Z90.49 Acquired absence of other specified parts of digestive tract

== ENCOUNTER 2020-03-20 11:02 | Emergency (ER) | payer OTHER ==
[~2020-03-20] VITALS: Ht 170.2 cm; Wt 105.7 kg
[2020-03-20 11:28] LABS: URINE BILIRUBIN NEGATIVE (Negative); URINE BLOOD NEGATIVE (Negative); URINE CLARITY CLEAR; URINE COLOR GREEN; URINE GLUCOSE-RANDOM* NEGATIVE (Negative); URINE KETONES NEGATIVE (Negative); URINE LEUKOCYTES-REFLEX NEGATIVE (Negative); URINE NITRITE-REFLEX NEGATIVE (Negative); URINE PROTEIN (DIPSTICK) TRACE (Negative); URINE SPECIFIC GRAVITY >= 1.030 (1.005-1.035); URINE UROBILINOGEN 0.2 E.U./dl (0.2-1.0)
[2020-03-20 12:49] LABS: ABSOLUTE NEUTROPHILS 3.5 thou/uL (1.4-8.2); BASOPHILS 0.5 % (0.0-2.0); HEMATOCRIT 36.6 % (37.0-47.0); HEMOGLOBIN 12.1 gm/dL (12.0-15.0); LYMPHOCYTES 35.5 % (24.0-44.0); MCH 30.7 pg (26.0-34.0); MCHC 33.1 g/dL (28.0-37.0); MCV 92.7 fL (80.0-100.0); MONOCYTES 7.7 % (1.0-8.0); PLATELET COUNT 330 thou/uL (150-400); POLYS 55.3 % (36.0-66.0); RBC 3.95 mil/uL (4.20-5.00); RDW 15.7 % (10.5-14.5); WBC 6.3 thou/uL (4.0-11.0)
[2020-03-20 12:53] LABS: ANION GAP < 0 mmol/L (7-16); BUN 9 mg/dL (7-18); CALCIUM 8.2 mg/dL (8.5-10.1); CHLORIDE 118 mmol/L (98-107); CO2 25 mmol/L (21-32); CREATININE 0.9 mg/dL (0.6-1.0); GLUCOSE 84 mg/dL (74-106); POTASSIUM 3.8 mmol/L (3.5-5.1); SODIUM 142 mmol/L (136-145)
[2020-03-20 14:03] VITALS: BP 113/59
== END 2020-03-20 14:16 | disposition home or self-care (01) ==
LOC: ER 11:02
PROVIDERS: Emergency Medicine; Physician Assistant
DX: N30.10 Interstitial cystitis (chronic) without hematuria (principal); R33.9 Retention of urine, unspecified; F17.210 Nicotine dependence, cigarettes, uncomplicated; Z79.899 Other long term (current) drug therapy; Z88.6 Allergy status to analgesic agent; Z88.8 Allergy status to other drugs, medicaments and biological substances; Z90.710 Acquired absence of both cervix and uterus; Z90.49 Acquired absence of other specified parts of digestive tract; Z98.890 Other specified postprocedural states

== ENCOUNTER 2020-03-28 10:21 | Emergency (ER) | payer OTHER ==
[~2020-03-28] VITALS: Ht 170.2 cm; Wt 104.3 kg
[2020-03-28 10:55] LABS: URINE BILIRUBIN NEGATIVE (Negative); URINE BLOOD 2+ (Negative); URINE COLOR YELLOW; URINE GLUCOSE-RANDOM* 1+ (Negative); URINE KETONES 1+ (Negative); URINE NITRITE-REFLEX NEGATIVE (Negative); URINE PROTEIN (DIPSTICK) 2+ (Negative); URINE SPECIFIC GRAVITY 1.025 (1.005-1.035)
[2020-03-28 10:56] LABS: URINE LEUKOCYTES-REFLEX 2+ (Negative)
[2020-03-28 10:57] LABS: SQUAMOUS 0-3 Few /LPF (0-3); URINE CLARITY CLOUDY
[2020-03-28 10:58] LABS: BACTERIA-REFLEX 1-9 Few /HPF (None Seen); CASTS None Seen /LPF (None Seen); CRYSTALS None Seen /LPF (None Seen); URINE RBC 3-10 Few /HPF (0-2); URINE WBC-REFLEX >25 Many /HPF (0-5)
[2020-03-28 11:28] LABS: ABSOLUTE NEUTROPHILS 3.6 thou/uL (1.4-8.2); BASOPHILS 1.2 % (0.0-2.0); EOSINOPHILS 1.1 % (0.0-3.0); HEMOGLOBIN 12.8 gm/dL (12.0-15.0); LYMPHOCYTES 38.8 % (24.0-44.0); MCH 30.3 pg (26.0-34.0); MCHC 32.9 g/dL (28.0-37.0); MCV 92.1 fL (80.0-100.0); MONOCYTES 7.1 % (1.0-8.0); PLATELET COUNT 423 thou/uL (150-400); POLYS 51.8 % (36.0-66.0); RBC 4.24 mil/uL (4.20-5.00); RDW 15.4 % (10.5-14.5); WBC 6.9 thou/uL (4.0-11.0)
[2020-03-28 11:37] LABS: CALCIUM 8.6 mg/dL (8.5-10.1); CREATININE 1.1 mg/dL (0.6-1.0); POTASSIUM 3.5 mmol/L (3.5-5.1)
[2020-03-28 11:43] LABS: ALBUMIN 3.3 g/dL (3.4-5.0); TOTAL BILIRUBIN 0.2 mg/dL (<0.1-1.0); TOTAL PROTEIN 6.9 g/dL (6.4-8.2)
[2020-03-28] MEDS ORDERED: KEFLEX500 M2 PO (12:09)
[2020-03-28 12:15] VITALS: BP 110/73
== END 2020-03-28 12:15 | disposition home or self-care (01) ==
LOC: ER 10:21
PROVIDERS: Student in an Organized Health Care Education/Training Program
DX: N30.90 Cystitis, unspecified without hematuria (principal); F17.210 Nicotine dependence, cigarettes, uncomplicated; Z79.899 Other long term (current) drug therapy; Z98.890 Other specified postprocedural states; Z79.82 Long term (current) use of aspirin; Z88.6 Allergy status to analgesic agent; Z88.8 Allergy status to other drugs, medicaments and biological substances; Z90.710 Acquired absence of both cervix and uterus; Z90.49 Acquired absence of other specified parts of digestive tract

== ENCOUNTER 2020-05-15 08:42 | Emergency (ER) | payer OTHER ==
[~2020-05-15] VITALS: Ht 170.2 cm; Wt 104.3 kg
[~2020-05-15 08:42] MED LIST changes: +KEFLEX500 M2 PO
[2020-05-15] MEDS ORDERED: BENADRYL25 MG PO (09:27)
[2020-05-15 09:40] VITALS: BP 111/57
== END 2020-05-15 10:00 | disposition home or self-care (01) ==
LOC: ER 08:42
DX: S80.861A Insect bite (nonvenomous), right lower leg, initial encounter (principal); S20.469A Insect bite (nonvenomous) of unspecified back wall of thorax, initial encounter; R11.0 Nausea; F17.210 Nicotine dependence, cigarettes, uncomplicated; Z90.49 Acquired absence of other specified parts of digestive tract; Z90.710 Acquired absence of both cervix and uterus; Z79.899 Other long term (current) drug therapy; Z88.5 Allergy status to narcotic agent; Z88.8 Allergy status to other drugs, medicaments and biological substances; W57.XXXA Bitten or stung by nonvenomous insect and other nonvenomous arthropods, initial encounter; Y93.89 Activity, other specified; Y92.89 Other specified places as the place of occurrence of the external cause; Y99.8 Other external cause status

== ENCOUNTER 2020-06-01 15:07 | Emergency (ER) | payer OTHER ==
[~2020-06-01] VITALS: Ht 170.2 cm; Wt 104.3 kg
[~2020-06-01 15:07] MED LIST changes: +BENADRYL25 MG PO
[2020-06-01 16:17] LABS: ABSOLUTE NEUTROPHILS 5.1 thou/uL (1.4-8.2); BASOPHILS 0.9 % (0.0-2.0); EOSINOPHILS 0.5 % (0.0-3.0); HEMATOCRIT 37.3 % (37.0-47.0); HEMOGLOBIN 12.7 gm/dL (12.0-15.0); LYMPHOCYTES 32.8 % (24.0-44.0); MCH 30.8 pg (26.0-34.0); MCHC 34.1 g/dL (28.0-37.0); MCV 90.3 fL (80.0-100.0); MONOCYTES 6.7 % (1.0-8.0); PLATELET COUNT 319 thou/uL (150-400); POLYS 59.1 % (36.0-66.0); RBC 4.13 mil/uL (4.20-5.00); RDW 16.1 % (10.5-14.5); WBC 8.6 thou/uL (4.0-11.0)
[2020-06-01 16:42] LABS: ANION GAP 9 mmol/L (7-16); BUN 11 mg/dL (7-18); CALCIUM 9.3 mg/dL (8.5-10.1); CHLORIDE 103 mmol/L (98-107); CO2 26 mmol/L (21-32); GLUCOSE 88 mg/dL (74-106); MAGNESIUM 1.9 mg/dL (1.8-2.4); POTASSIUM 3.5 mmol/L (3.5-5.1); SODIUM 138 mmol/L (136-145); TROPONIN-I <0.06 ng/mL (<0.06)
[2020-06-01 18:00] VITALS: BP 120/80
--- NOTE | 2020-06-02 08:09 | EKG ---
[facility] [place] [address] ELECTROCARDIOGRAM REPORT Name: MIGDALIA SNEED Room #: DEP [facility]#: [id number] Admission: 06/01/20 Attend Phys: Discharge: 06/01/20 Date of : 59 Report #: [id number] THIS REPORT FOR: cc: Yuri Walter MD, Neal A. MD Lundgren,Eduardo Murphy MD 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
== END 2020-06-01 17:58 | disposition home or self-care (01) ==
LOC: ER 15:07
PROVIDERS: Emergency Medicine
DX: R53.83 Other fatigue (principal); R07.89 Other chest pain; R22.41 Localized swelling, mass and lump, right lower limb; F17.210 Nicotine dependence, cigarettes, uncomplicated; Z90.49 Acquired absence of other specified parts of digestive tract; Z90.710 Acquired absence of both cervix and uterus; Z79.899 Other long term (current) drug therapy; Z88.5 Allergy status to narcotic agent; Z88.8 Allergy status to other drugs, medicaments and biological substances

== ENCOUNTER → 2020-06-17 | Outpatient (CLI) | payer OTHER ==
[~2020-06-17] MED LIST changes: +ACYCLOVIR 800800 MG PO; +BENZONATATE100 MG PO; +BUDESONIDE-FO10.2 G1 INH; +CREON DR 6,0001 EACH PO; +VITAMIN B-12500 MC5 SUBLING; +VITAMIN D31250 MC1 PO; +VITAMIN E400 UNI6 PO
== END ==
LOC: LAB 08:00
PROVIDERS: ATTEND Student in an Organized Health Care Education/Training Program
DX: Z01.812 Encounter for preprocedural laboratory examination (principal); Z11.59 Encounter for screening for other viral diseases

== ENCOUNTER 2020-06-22 06:07 | Day surgery (SDC) | payer OTHER ==
[~2020-06-22] VITALS: Ht 170.2 cm; Wt 104.3 kg
--- NOTE | ~2020-06-22 | O ---
[facility] Arianna Jackman [place] [address] OPERATIVE REPORT Name: MIGDALIA SNEED Room #: DEP [facility].#: [id number] Admission: 06/22/20 Attend Phys: Belinda Mejia MD, Discharge: 06/22/20 Date of : 59 Report #: [id number] THIS REPORT FOR: cc: Yuri Walter MD, Neal A. MD Soliman,Belinda Smart MD FACS ~ CC: Belinda Walter DATE OF SERVICE: 06/22/2020 PREOPERATIVE DIAGNOSIS: Bilateral inner thigh masses. POSTOPERATIVE DIAGNOSIS: Bilateral inner thigh subfascial masses. PROCEDURES PERFORMED: 1. Excision of left inner thigh subfascial mass measuring 7 x 4 cm in dimension. 2. Excision of a right inner thigh subfascial mass measuring 6.5 x 4.5 cm in dimension. SURGEON: Belinda Mejia M.D. MANAGER CLIENT: CECILIA Brown. ANESTHESIA: General endotracheal anesthesia. ESTIMATED BLOOD LOSS: Minimal (less than 5 mL). COMPLICATIONS: None appreciated. SPECIMENS: Masses to pathology. INDICATIONS: The patient is a 65-year-old -[place] Islander female with complaints of bilateral inner thigh masses with worsening discomfort and pain. On exam, the patient has an obviously palpable abnormality, which elicits mild reproducible pain; however, these appear firm, but freely mobile. These all appeared consistent with lipomas preoperatively, however, indication today was for excision for diagnostic and therapeutic measures. DESCRIPTION OF PROCEDURE: After explaining the risks, benefits and alternatives of the procedure with the patient in detail in the preoperative holding area and obtaining written consent, the patient was brought to the operating room and placed supine on the operating room table. After conducting a thorough timeout procedure verifying correct patient and procedure, the patient was given general endotracheal anesthesia. Once adequate anesthesia was obtained, her SCDs were [facility] [address] [place] [address] OPERATIVE REPORT Name: NEDRAMIGDALIA J Room #: DEP [facility]..#: [id number] Admission: 06/22/20 Attend Phys: Belinda Mejia MD, Discharge: 06/22/20 Date of : 59 Report #: [id number] hooked up to the pneumatic compression device and she was given a preoperative dose of antibiotics in line with the SCIP protocol. The patient was then placed in the frogleg position and her bilateral inner thighs were prepped and draped in standard surgical sterile fashion. We turned our attention to the left inner thigh first. A 10 mL of 0.5% Marcaine with epinephrine were used to anesthetize the skin overlying the masses in question, which had been marked preoperatively, as did the right inner thigh masses. A #10 bladed scalpel was used to create a 3 cm longitudinal incision overlying the masses in question and this was carried down through skin and subcutaneous tissues to ensure hemostasis with electrocautery. Once we arrived upon the anterior aspect of the encapsulated mass, I was able to gain circumferential control using electrocautery with adequate retraction using Jaren and [place] retractors. Once I gained circumferential control, this was obviously deeper in nature and carried all the way down to the subfascial plane where I had opened the fascia in order to arrive upon the stalk of the masses. Ultimately, these were elevated off of the lymphatic chain of which the lymph nodes did not appear grossly abnormal. I transected this at its base with electrocautery and passed off the field as left thigh subfascial mass. The wound was irrigated. The fascia was closed using mjnisw-hd-xwlcc sutures of 3-0 Vicryl, which was also used in interrupted inverted fashion for dermis. 4-0 Monocryl was used in standard running subcuticular fashion for skin and Dermabond glue was applied to the skin wound. We then turned our attention to the right inner thigh subfascial mass, which in similar fashion was anesthetized with 10 mL of 0.5% Marcaine with epinephrine. Again, a longitudinal incision was made using #10 bladed scalpel, which was carried down through skin and subcutaneous tissues using electrocautery for hemostasis until I arrived upon the anterior aspect of the capsule. Again, I gained circumferential control of the mass in question carried down to the subfascial plane, which was opened with electrocautery where it was transected at its base. Again noted were the right lymphatic chains, which did not appear grossly abnormal. The fascia was closed between separate anavbp-wz-gemmi sutures of 3-0 Vicryl as well, which was again used in an inverted interrupted fashion for dermis. Running 4-0 Monocryl was used in a standard subcuticular fashion for the skin incision as well and Dermabond glue was applied to the skin wound completing the procedure. At the end of the procedure, all instrument, needle and sponge counts were correct. The patient tolerated the procedure without incident, was awakened in the operating room and transitioned to the recovery room in stable condition with no apparent complications. By: 1215 1256 Belinda Mejia MD, FACS /nt
[2020-06-22 06:48] LABS: HEMATOCRIT 37.4 % (37.0-47.0); HEMOGLOBIN 12.4 gm/dL (12.0-15.0)
[2020-06-22 07:02] LABS: CREATININE 1.2 mg/dL (0.6-1.0); POTASSIUM 3.7 mmol/L (3.5-5.1)
[2020-06-22 09:01] VITALS: BP 114/68
[2020-06-22 09:09] VITALS: BP 114/68
--- NOTE | 2020-06-25 12:06 | PATH ---
[facility] [place] [address] PATHOLOGY RPT PROCEDURE Name: JUVE SNEEDChiara Jean Room #: DEP [facility] M.R.#: [id number] Admission: 06/22/20 Date of : 59 Discharge: 06/22/20 Report #: [id number] Path Case #: [id number] [facility] Accession Number: [id number] . 01 Material submitted: . PART A: thigh - RIGHT SUBFASCIAL LIPOMA. Modifiers: right, inner PART B: thigh - LEFT SUBFASCIAL LIPOMA. Modifiers: left, inner . 01 Clinical history: . Lipoma . 02 Diagnosis: A. Soft tissue, "right subfascial", excision: - Mature, lobulated adipose tissue, consistent with lipoma. . B. Soft tissue, "left subfascial", excision: - Mature, lobulated adipose tissue, consistent with lipoma. . (EMMA:ubaldo; 06/24/2020) [facility] 06/25/2020 1111 Local . 02 Electronically signed: . Perlita Gray MD, Pathologist NPI- [id number] . 01 Gross description: . A. The specimen is received in formalin, labeled "Gypsy Sneed, right subfascial lipoma". The site is verified on the problem specimen form as, "right inner thigh". Received is a segment of yellow-bryan lobulated tissue measuring 5.7 x 3.9 x 2.5 cm in greatest dimensions. Sectioning reveals bright yellow cut surfaces with no grossly distinct nodules or lesions. The specimen is submitted representatively in cassette A1. . B. The specimen is received in formalin, labeled "Gypsy Sneed, left subfascial lipoma". The site is verified on the problem specimen form as, "left inner thigh". Received is a segment of yellow-bryan lobulated tissue measuring 6.2 x 4.9 x 3.3 cm in greatest dimensions. Sectioning reveals bright yellow cut surfaces with no grossly distinct nodules or lesions. The specimen is submitted representatively in cassette B1. (CAA; 06/22/2020) QAC/QAC 06/22/2020 1609 Local . 02 Pathologist provided ICD-10: D17.79 . 02 CPT . 905148, [id number] [address] [address] PATHOLOGY RPT PROCEDURE Name: GYPSY SNEED [facility] [id number] Admission: 06/22/20 Date of : 59 Discharge: 06/22/20 Report #: [id number] Path Case #: [id number] Specimen Comment: A courtesy copy of this report has been sent to [phone], [phone] Specimen Comment: [id number] Specimen Comment: Report sent to / DR NICOLE Performed at: [address] [facility] [address], [place], [place] [address] MD Georges Shea MD Phone: [phone] Performed at: 02 [facility] [place] [address] [address], [place], [place] [id number] MD Chidi Alberts MD Phone: [phone]
== END 2020-06-22 10:10 | disposition home or self-care (01) ==
LOC: TBA 06:07 → OR 06:07
PROVIDERS: ATTEND Surgery
DX: D17.24 Benign lipomatous neoplasm of skin and subcutaneous tissue of left leg (principal); D17.23 Benign lipomatous neoplasm of skin and subcutaneous tissue of right leg; J43.9 Emphysema, unspecified; E78.00 Pure hypercholesterolemia, unspecified; K21.9 Gastro-esophageal reflux disease without esophagitis; F41.9 Anxiety disorder, unspecified; F17.210 Nicotine dependence, cigarettes, uncomplicated; Z98.890 Other specified postprocedural states; Z79.899 Other long term (current) drug therapy; Z90.710 Acquired absence of both cervix and uterus; Z86.73 Personal history of transient ischemic attack (TIA), and cerebral infarction without residual deficits; Z90.49 Acquired absence of other specified parts of digestive tract
CPT/HCPCS: 50010; 50101; 50386; 50403; 54118; 56524; 56526; 62110; 62900; 70005

== ENCOUNTER 2020-06-24 07:28 | Emergency (ER) | payer OTHER ==
[~2020-06-24] VITALS: Ht 170.2 cm; Wt 104.3 kg
[2020-06-24 09:35] LABS: ABSOLUTE NEUTROPHILS 6.5 thou/uL (1.4-8.2); EOSINOPHILS 0.7 % (0.0-3.0); HEMATOCRIT 35.2 % (37.0-47.0); HEMOGLOBIN 11.6 gm/dL (12.0-15.0); LYMPHOCYTES 32.5 % (24.0-44.0); MCH 30.2 pg (26.0-34.0); MCHC 32.9 g/dL (28.0-37.0); MCV 91.7 fL (80.0-100.0); MONOCYTES 6.4 % (1.0-8.0); PLATELET COUNT 329 thou/uL (150-400); POLYS 59.4 % (36.0-66.0); RBC 3.83 mil/uL (4.20-5.00); RDW 16.7 % (10.5-14.5)
[2020-06-24 09:55] LABS: CREATININE 0.9 mg/dL (0.6-1.0); POTASSIUM 3.5 mmol/L (3.5-5.1)
[2020-06-24] MEDS ORDERED: PERCOCET PO (10:02)
[2020-06-24] MEDS ORDERED: AUGMENTIN 875-1 EACH PO (10:02)
[2020-06-24 11:51] VITALS: BP 112/58
== END 2020-06-24 11:51 | disposition home or self-care (01) ==
LOC: ER 07:28
PROVIDERS: Emergency Medicine
DX: T81.40XA Infection following a procedure, unspecified, initial encounter (principal); J44.9 Chronic obstructive pulmonary disease, unspecified; F17.210 Nicotine dependence, cigarettes, uncomplicated; Z88.5 Allergy status to narcotic agent; Z88.8 Allergy status to other drugs, medicaments and biological substances; Z88.6 Allergy status to analgesic agent; Z79.899 Other long term (current) drug therapy; Z86.73 Personal history of transient ischemic attack (TIA), and cerebral infarction without residual deficits; Z90.49 Acquired absence of other specified parts of digestive tract; Y92.89 Other specified places as the place of occurrence of the external cause

== ENCOUNTER 2020-06-25 13:39 | Emergency (ER) | payer OTHER ==
[~2020-06-25] VITALS: Ht 170.2 cm; Wt 104.3 kg
[~2020-06-25 13:39] MED LIST changes: +AUGMENTIN 875-1 EACH PO; +PERCOCET PO
[2020-06-25 15:52] LABS: ABSOLUTE NEUTROPHILS 4.9 thou/uL (1.4-8.2); EOSINOPHILS 1.2 % (0.0-3.0); HEMOGLOBIN 11.1 gm/dL (12.0-15.0); LYMPHOCYTES 36.7 % (24.0-44.0); MCH 30.7 pg (26.0-34.0); MCHC 33.7 g/dL (28.0-37.0); MCV 91.1 fL (80.0-100.0); MONOCYTES 5.9 % (1.0-8.0); PLATELET COUNT 320 thou/uL (150-400); POLYS 55.2 % (36.0-66.0); RBC 3.62 mil/uL (4.20-5.00); RDW 16.5 % (10.5-14.5); WBC 8.8 thou/uL (4.0-11.0)
[2020-06-25 16:13] LABS: CALCIUM 8.3 mg/dL (8.5-10.1); CREATININE 1.1 mg/dL (0.6-1.0); POTASSIUM 3.6 mmol/L (3.5-5.1)
[2020-06-25 18:50] VITALS: BP 124/58
== END 2020-06-25 19:00 | disposition home or self-care (01) ==
LOC: ER 13:39
PROVIDERS: Nurse Practitioner
DX: G89.18 Other acute postprocedural pain (principal); R22.42 Localized swelling, mass and lump, left lower limb; J44.9 Chronic obstructive pulmonary disease, unspecified; E78.5 Hyperlipidemia, unspecified; F17.210 Nicotine dependence, cigarettes, uncomplicated; Z88.5 Allergy status to narcotic agent; Z88.6 Allergy status to analgesic agent; Z88.8 Allergy status to other drugs, medicaments and biological substances; Z79.899 Other long term (current) drug therapy; Z79.82 Long term (current) use of aspirin; Z90.710 Acquired absence of both cervix and uterus; Z90.49 Acquired absence of other specified parts of digestive tract; Z86.73 Personal history of transient ischemic attack (TIA), and cerebral infarction without residual deficits

== ENCOUNTER 2020-06-28 11:32 | Emergency (ER) | payer OTHER ==
[~2020-06-28] VITALS: Ht 170.2 cm; Wt 113.4 kg
[2020-06-28] MEDS ORDERED: AMOXICILLIN 50500 MG PO (11:50)
[2020-06-28] MEDS ORDERED: PERCOCET 5-3251 EACH PO (11:51)
[2020-06-28 13:28] LABS: ABSOLUTE NEUTROPHILS 5.5 thou/uL (1.4-8.2); BASOPHILS 0.9 % (0.0-2.0); EOSINOPHILS 1.3 % (0.0-3.0); HEMATOCRIT 32.8 % (37.0-47.0); HEMOGLOBIN 11.4 gm/dL (12.0-15.0); LYMPHOCYTES 29.7 % (24.0-44.0); MCH 31.8 pg (26.0-34.0); MCHC 34.8 g/dL (28.0-37.0); MCV 91.3 fL (80.0-100.0); MONOCYTES 6.1 % (1.0-8.0); PLATELET COUNT 357 thou/uL (150-400); RDW 16.4 % (10.5-14.5); WBC 8.9 thou/uL (4.0-11.0)
[2020-06-28 13:49] LABS: CALCIUM 8.9 mg/dL (8.5-10.1); CREATININE 0.9 mg/dL (0.6-1.0); POTASSIUM 4.1 mmol/L (3.5-5.1)
[2020-06-28 13:53] LABS: TOTAL BILIRUBIN 0.2 mg/dL (0.2-1.0); TOTAL PROTEIN 6.3 g/dL (6.4-8.2)
[2020-06-28 15:30] VITALS: BP 129/65
== END 2020-06-28 15:30 ==
LOC: ER 11:32
PROVIDERS: Physician Assistant
DX: L76.34 Postprocedural seroma of skin and subcutaneous tissue following other procedure (principal); J44.9 Chronic obstructive pulmonary disease, unspecified; E78.5 Hyperlipidemia, unspecified; F17.210 Nicotine dependence, cigarettes, uncomplicated; K21.9 Gastro-esophageal reflux disease without esophagitis; Z90.89 Acquired absence of other organs; Z90.49 Acquired absence of other specified parts of digestive tract; Z90.710 Acquired absence of both cervix and uterus; Z79.2 Long term (current) use of antibiotics; Z79.899 Other long term (current) drug therapy; Z88.5 Allergy status to narcotic agent; Z88.8 Allergy status to other drugs, medicaments and biological substances

== ENCOUNTER 2020-07-21 08:37 | Emergency (ER) | payer OTHER ==
[~2020-07-21] VITALS: Ht 170.2 cm; Wt 102.5 kg
[~2020-07-21 08:37] MED LIST changes: +AMOXICILLIN 50500 MG PO; +PERCOCET 5-3251 EACH PO
[2020-07-21] MEDS ORDERED: CIMETIDINE 400400 MG PO (09:16)
[2020-07-21 09:54] LABS: BASOPHILS 0.8 % (0.0-2.0); EOSINOPHILS 1.4 % (0.0-3.0); HEMATOCRIT 34.9 % (37.0-47.0); HEMOGLOBIN 11.6 gm/dL (12.0-15.0); LYMPHOCYTES 44.5 % (24.0-44.0); MCH 29.9 pg (26.0-34.0); MCHC 33.1 g/dL (28.0-37.0); MCV 90.3 fL (80.0-100.0); MONOCYTES 6.3 % (1.0-8.0); PLATELET COUNT 310 thou/uL (150-400); RBC 3.87 mil/uL (4.20-5.00); RDW 16.4 % (10.5-14.5); WBC 6.4 thou/uL (4.0-11.0)
[2020-07-21 10:13] LABS: CALCIUM 8.8 mg/dL (8.5-10.1); MAGNESIUM 1.8 mg/dL (1.8-2.4); POTASSIUM 3.5 mmol/L (3.5-5.1)
[2020-07-21 12:39] VITALS: BP 126/61
--- NOTE | 2020-07-22 09:07 | EKG ---
[facility] [place] [address] ELECTROCARDIOGRAM REPORT Name: MIGDALIA SNEED Room #: [facility]P [facility] [id number] Admission: 07/21/20 Attend Phys: Discharge: 07/21/20 Date of : 59 Report #: [id number] THIS REPORT FOR: cc: Yuri Walter MD, Neal A. MD Couchonnal, Luis F. 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
== END 2020-07-21 12:50 | disposition home or self-care (01) ==
LOC: ER 08:37
PROVIDERS: Emergency Medicine
DX: R10.30 Lower abdominal pain, unspecified (principal); J44.9 Chronic obstructive pulmonary disease, unspecified; F17.210 Nicotine dependence, cigarettes, uncomplicated; Z90.49 Acquired absence of other specified parts of digestive tract; Z90.710 Acquired absence of both cervix and uterus; Z79.899 Other long term (current) drug therapy; Z79.82 Long term (current) use of aspirin; Z88.5 Allergy status to narcotic agent; Z88.8 Allergy status to other drugs, medicaments and biological substances

== ENCOUNTER 2020-08-16 14:27 | Emergency (ER) | payer OTHER ==
[~2020-08-16] VITALS: Ht 170.2 cm; Wt 105.7 kg
[~2020-08-16 14:27] MED LIST changes: +CIMETIDINE 400400 MG PO
[2020-08-16 17:02] LABS: ABSOLUTE NEUTROPHILS 4.4 thou/uL (1.4-8.2); BASOPHILS 0.9 % (0.0-2.0); EOSINOPHILS 0.7 % (0.0-3.0); HEMATOCRIT 36.2 % (37.0-47.0); HEMOGLOBIN 11.7 gm/dL (12.0-15.0); LYMPHOCYTES 38.2 % (24.0-44.0); MCH 29.1 pg (26.0-34.0); MCHC 32.4 g/dL (28.0-37.0); MCV 89.7 fL (80.0-100.0); PLATELET COUNT 360 thou/uL (150-400); POLYS 52.2 % (36.0-66.0); RBC 4.03 mil/uL (4.20-5.00); RDW 15.9 % (10.5-14.5); WBC 8.4 thou/uL (4.0-11.0)
[2020-08-16 17:11] LABS: ANION GAP 10 mmol/L (7-16); BUN 10 mg/dL (7-18); CALCIUM 8.9 mg/dL (8.5-10.1); CHLORIDE 108 mmol/L (98-107); CO2 25 mmol/L (21-32); CREATININE 0.7 mg/dL (0.6-1.0); GLUCOSE 85 mg/dL (74-106); POTASSIUM 3.5 mmol/L (3.5-5.1); SODIUM 143 mmol/L (136-145)
[2020-08-16 17:18] LABS: ALBUMIN 3.5 g/dL (3.4-5.0); DIRECT BILIRUBIN < 0.1 mg/dL (<0.1-0.2); LIPASE 74 U/L (73-393); SGOT 18 U/L (15-37); SGPT 21 U/L (30-65); TOTAL BILIRUBIN 0.2 mg/dL (0.2-1.0); TOTAL PROTEIN 6.8 g/dL (6.4-8.2)
[2020-08-16] MEDS ORDERED: AUGMENTIN 875-1 EACH PO (18:05)
[2020-08-16] MEDS ORDERED: PREDNISONE 20 M20 MG PO (18:06)
[2020-08-16 18:26] VITALS: BP 115/83
== END 2020-08-16 18:25 | disposition home or self-care (01) ==
LOC: ER 14:27
PROVIDERS: Nurse Practitioner
DX: J44.1 Chronic obstructive pulmonary disease with (acute) exacerbation (principal); Z20.828 Contact with and (suspected) exposure to other viral communicable diseases; K21.9 Gastro-esophageal reflux disease without esophagitis; E78.5 Hyperlipidemia, unspecified; F41.9 Anxiety disorder, unspecified; F17.210 Nicotine dependence, cigarettes, uncomplicated; Z90.711 Acquired absence of uterus with remaining cervical stump; Z90.49 Acquired absence of other specified parts of digestive tract; Z86.73 Personal history of transient ischemic attack (TIA), and cerebral infarction without residual deficits; Z79.899 Other long term (current) drug therapy; Z79.82 Long term (current) use of aspirin; Z88.8 Allergy status to other drugs, medicaments and biological substances; Z88.5 Allergy status to narcotic agent

== ENCOUNTER → 2020-08-19 | Outpatient (CLI) | payer OTHER | LOC: ULTRA 08:57 | PROVIDERS: ATTEND Family Medicine | DX: M79.89 Other specified soft tissue disorders (principal) ==

== ENCOUNTER 2020-09-09 13:03 | Emergency (ER) | payer OTHER ==
[~2020-09-09] VITALS: Ht 167.6 cm; Wt 105.7 kg
[2020-09-09] MEDS ORDERED: BACTRIM DS TAB1 EACH PO (15:12)
[2020-09-09 16:28] VITALS: BP 132/78
== END 2020-09-09 16:29 | disposition home or self-care (01) ==
LOC: ER 13:03
DX: N75.0 Cyst of Bartholin's gland (principal); J44.9 Chronic obstructive pulmonary disease, unspecified; F17.210 Nicotine dependence, cigarettes, uncomplicated; K21.9 Gastro-esophageal reflux disease without esophagitis; E78.5 Hyperlipidemia, unspecified; Z79.82 Long term (current) use of aspirin; Z90.710 Acquired absence of both cervix and uterus; Z90.49 Acquired absence of other specified parts of digestive tract; Z79.2 Long term (current) use of antibiotics; Z79.899 Other long term (current) drug therapy; Z88.5 Allergy status to narcotic agent; Z88.8 Allergy status to other drugs, medicaments and biological substances

== ENCOUNTER → 2020-09-13 | Outpatient (CLI) | payer OTHER ==
[~2020-09-13] MED LIST changes: +BACTRIM DS TAB1 EAC1 PO; +BACTRIM DS TAB1 EACH PO; +CARAFATE1 GM PO; +PROAIR HFA8.5 GM INH; +VITAMIN D3250 MCG PO
== END ==
LOC: LAB 07:40
PROVIDERS: ATTEND Surgery
DX: Z01.812 Encounter for preprocedural laboratory examination (principal); Z20.828 Contact with and (suspected) exposure to other viral communicable diseases

== ENCOUNTER 2020-09-17 07:55 | Day surgery (SDC) | payer OTHER ==
[~2020-09-17] VITALS: Ht 170.2 cm; Wt 104.3 kg
[2020-09-17 09:20] VITALS: BP 123/86
[2020-09-17 12:04] VITALS: BP 123/86
== END 2020-09-17 12:35 | disposition home or self-care (01) ==
LOC: OR 07:55 → TBA 07:55 → OR 11:45
PROVIDERS: ATTEND Surgery
DX: Z45.2 Encounter for adjustment and management of vascular access device (principal); E78.5 Hyperlipidemia, unspecified; J43.9 Emphysema, unspecified; I50.9 Heart failure, unspecified; K21.9 Gastro-esophageal reflux disease without esophagitis; F41.9 Anxiety disorder, unspecified; F17.210 Nicotine dependence, cigarettes, uncomplicated; Z79.899 Other long term (current) drug therapy; Z90.49 Acquired absence of other specified parts of digestive tract; Z98.890 Other specified postprocedural states; Z88.5 Allergy status to narcotic agent; Z88.8 Allergy status to other drugs, medicaments and biological substances; Z82.49 Family history of ischemic heart disease and other diseases of the circulatory system; Z90.710 Acquired absence of both cervix and uterus; Z86.73 Personal history of transient ischemic attack (TIA), and cerebral infarction without residual deficits; Z87.440 Personal history of urinary (tract) infections
CPT/HCPCS: 50010; 50101; 62110; 62900; 70005

== ENCOUNTER 2020-10-18 09:56 | Emergency (ER) | payer OTHER ==
[~2020-10-18] VITALS: Ht 170.2 cm; Wt 104.3 kg
--- NOTE | 2020-10-18 10:57 | EKG ---
[facility] [place] [address] ELECTROCARDIOGRAM REPORT Name: TRISTIAN SNEEDLYN ALLYSSA Room #: PRE M.R.#: [id number] Admission: Attend Phys: Discharge: Date of : 59 Report #: [id number] THIS REPORT FOR: cc: Yuri Walter MD, Neal A. MD Santiago, Patrick MD [facility] ~ THIS REPORT FOR: //name// [facility] ED Test Date: 2020-10-18 Test Time: 10:51:44 Pat Name: MIGDALIA SNEED Department: Room: Gender: Music Leader: TBARNES : 1955 Requested By: Chris Phan Order Number: [id number] MD: Wolf Santoro Measurements Intervals [place] Rate: 77 P: 65 [place]: 171 QRS: 64 QRSD: 77 T: 48 QT: 368 QTc: 417 Interpretive Statements Sinus arrhythmia Compared to ECG 07/21/2020 09:27:14 Sinus rhythm no longer present Electronically Signed On 10-18-2020 10:57:10 LEGISLATIVE ASSISTANT by Wolf Santoro [email or web address] <ELECTRONICALLY SIGNED> By: Wolf Santoro MD, FACC 11/7 105 50 Wolf Santoro MD, FAC /EPI
[2020-10-18 12:10] LABS: HEMATOCRIT 33.4 % (37.0-47.0); HEMOGLOBIN 10.7 gm/dL (12.0-15.0); MCH 29.1 pg (26.0-34.0); MCV 90.9 fL (80.0-100.0); RBC 3.68 mil/uL (4.20-5.00); WBC 11.8 thou/uL (4.0-11.0)
[2020-10-18 12:30] LABS: BE(vivo) 1.8 mmol/L (-2 to +3); HCO3 27.3 mmol/L (22.0-26.0); PCO2 46.3 mmHg (35.0-45.0); PO2 75.4 mmHg (80.0-100.0); pH 7.389 (7.360-7.450); sO2 94.9 % (92.0-98.0)
[2020-10-18 12:35] LABS: ANION GAP 6 mmol/L (7-16); BUN 10 mg/dL (7-18); CALCIUM 8.9 mg/dL (8.5-10.1); CHLORIDE 105 mmol/L (98-107); CO2 28 mmol/L (21-32); GLUCOSE 87 mg/dL (74-106); POTASSIUM 4.4 mmol/L (3.5-5.1); SODIUM 139 mmol/L (136-145)
[2020-10-18 12:43] LABS: TROPONIN-I <0.06 ng/mL (<0.06)
[2020-10-18 14:52] VITALS: BP 108/64
== END 2020-10-18 15:04 | disposition home or self-care (01) ==
LOC: ER 09:56
PROVIDERS: Emergency Medicine
DX: R05 Cough (principal); E78.5 Hyperlipidemia, unspecified; J44.9 Chronic obstructive pulmonary disease, unspecified; I50.9 Heart failure, unspecified; F17.210 Nicotine dependence, cigarettes, uncomplicated; Z90.49 Acquired absence of other specified parts of digestive tract; Z90.710 Acquired absence of both cervix and uterus; Z79.82 Long term (current) use of aspirin; Z79.1 Long term (current) use of non-steroidal anti-inflammatories (NSAID); Z79.899 Other long term (current) drug therapy; Z88.5 Allergy status to narcotic agent; Z88.8 Allergy status to other drugs, medicaments and biological substances; Z20.828 Contact with and (suspected) exposure to other viral communicable diseases

== ENCOUNTER 2020-11-02 14:07 | Emergency (ER) | payer OTHER ==
[~2020-11-02] VITALS: Ht 167.6 cm; Wt 102.1 kg
[2020-11-02 18:28] LABS: ABSOLUTE NEUTROPHILS 5.5 thou/uL (1.4-8.2); BASOPHILS 0.9 % (0.0-2.0); EOSINOPHILS 1.2 % (0.0-3.0); HEMATOCRIT 34.3 % (37.0-47.0); HEMOGLOBIN 11.5 gm/dL (12.0-15.0); LYMPHOCYTES 35.4 % (24.0-44.0); MCH 29.8 pg (26.0-34.0); MCHC 33.5 g/dL (28.0-37.0); MCV 88.9 fL (80.0-100.0); PLATELET COUNT 411 thou/uL (150-400); POLYS 56.5 % (36.0-66.0); RBC 3.86 mil/uL (4.20-5.00); RDW 16.6 % (10.5-14.5); WBC 9.8 thou/uL (4.0-11.0)
[2020-11-02 18:38] LABS: POTASSIUM 3.6 mmol/L (3.5-5.1)
[2020-11-02 18:49] LABS: CALCIUM 9.5 mg/dL (8.5-10.1)
[2020-11-02 20:58] VITALS: BP 142/54
--- NOTE | 2020-11-03 07:22 | EKG ---
[facility] [place] [address] ELECTROCARDIOGRAM REPORT Name: MIGDALIA SNEED Room #: [facility] [id number] Admission: 11/02/20 Attend Phys: Discharge: 11/02/20 Date of : 59 Report #: [id number] THIS REPORT FOR: cc: Yuri Walter MD, Neal A. MD Santiago, Patrick MD [facility] ~ THIS REPORT FOR: //name// [facility] ED Test Date: 2020-11-02 Test Time: 19:02:48 Pat Name: MIGDALIA SNEED Department: Room: Gender: F Manager Er: edmund : 1955 Requested By: Antony Ramos Order Number: [id number] MD: Wolf Santoro Measurements Intervals [place] Rate: 60 P: 80 [place]: 198 QRS: 60 QRSD: 96 T: 45 QT: 419 QTc: 419 Interpretive Statements Sinus rhythm Compared to ECG 10/18/2020 10:51:44 ST (T wave) deviation now present Sinus arrhythmia no longer present Electronically Signed On 11-03-2020 7:22:23 SHIFT SUPERVISOR RN by Wolf Santoro [email or web address] <ELECTRONICALLY SIGNED> By: Wolf Santoro MD, FACC 11/03/20 0722 190 01 Wolf Santoro MD, [facility] /EPI
== END 2020-11-02 21:08 | disposition home or self-care (01) ==
LOC: ER 14:07
PROVIDERS: Emergency Medicine
DX: R10.84 Generalized abdominal pain (principal); J44.9 Chronic obstructive pulmonary disease, unspecified; K21.9 Gastro-esophageal reflux disease without esophagitis; F17.210 Nicotine dependence, cigarettes, uncomplicated; E78.5 Hyperlipidemia, unspecified; I50.9 Heart failure, unspecified; Z90.49 Acquired absence of other specified parts of digestive tract; Z90.710 Acquired absence of both cervix and uterus; Z79.899 Other long term (current) drug therapy; Z79.82 Long term (current) use of aspirin; Z88.5 Allergy status to narcotic agent; Z88.8 Allergy status to other drugs, medicaments and biological substances; Z20.828 Contact with and (suspected) exposure to other viral communicable diseases

== ENCOUNTER → 2020-11-17 | Outpatient (CLI) | payer OTHER ==
[~2020-11-17] MED LIST changes: +DIFLUCAN100 MG PO; +MAGNESIUM250 M1 PO; +OMEPRAZOLE40 MG PO; +POTASSIUM20 PO; +[UNRECOGNIZED DRUG - OTHER] PO; -[UNRECOGNIZED DRUG - OTHER] PO
== END ==
LOC: LAB 11:26
PROVIDERS: ATTEND Orthopaedic Surgery Hand Surgery
DX: Z01.812 Encounter for preprocedural laboratory examination (principal); Z20.828 Contact with and (suspected) exposure to other viral communicable diseases

== ENCOUNTER 2020-11-23 12:16 | Day surgery (SDC) | payer OTHER ==
[~2020-11-23] VITALS: Ht 170.2 cm; Wt 104.3 kg
[2020-11-23 13:17] VITALS: BP 113/53
[2020-11-23 16:09] VITALS: BP 113/53
--- NOTE | 2020-11-26 12:19 | O ---
[facility] [place] [address] OPERATIVE REPORT Name: MIGDALIA SNEED Room #: DEP [facility].#: [id number] Admission: 11/23/20 Attend Phys: Mala Powell, Discharge: 11/23/20 Date of : 59 Report #: [id number] THIS REPORT FOR: cc: Yuri Walter MD, Neal A. MD Deardorff, Valerie A. MD ~ DATE OF SERVICE: 11/23/2020 PREOPERATIVE DIAGNOSES: 1. Right carpal tunnel syndrome. 2. Right first dorsal compartment tenosynovitis. POSTOPERATIVE DIAGNOSES: 1. Right carpal tunnel syndrome. 2. Right first dorsal compartment tenosynovitis. PROCEDURES PERFORMED: 1. Right endoscopic carpal tunnel. 2. Right first dorsal compartment release. SURGEON: Mala Powell MD ANESTHESIA: General mask anesthesia. ESTIMATED BLOOD LOSS: Minimal. TOURNIQUET TIME: 16 minutes. COMPLICATIONS: None. CONDITION: Stable. DISPOSITION: Recovery room. INDICATIONS: The patient is a 65-year-old female with the above-mentioned diagnoses. She elects for operative treatment. The risks, benefits, alternatives and complications were discussed including but not limited to infection, damage to vessels or nerves, incomplete relief or worsening of any symptoms. Informed consent was obtained. The correct extremity was identified and labeled by myself after verbal communication with the patient as well as visual confirmation and signed informed consent. DESCRIPTION OF PROCEDURE: The patient was brought back to the operating room and placed on the operating table in supine position. She received preoperative antibiotics. Tourniquet was placed over padding on the patient's right upper [address] [address] OPERATIVE REPORT Name: MIGDALIA SNEED Room #: DEP [facility]..#: [id number] Admission: 11/23/20 Attend Phys: Mala Powell, Discharge: 11/23/20 Date of : 59 Report #: [id number] extremity. The extremity was sterilely prepped and draped in the usual fashion. Final timeout was taken to verify correct patient, operative procedure, operative site, all concurred. The arm was elevated, exsanguinated and tourniquet inflated. The operative procedure was done with the aid of 3.5 times loupe magnification. Next, a transverse incision was made at the level of the radial styloid measuring approximately 2.5 to 3 cm. Dissection was carried down through subcutaneous tissue with tenotomy scissors all the way to the first dorsal compartment. The first dorsal compartment was identified and incised on its dorsal aspect. There was a small separate compartment for the EPB tendon. This was released as well. Careful attention was placed to protecting sensory nerves. The tendons glided smoothly. There was no subluxation with wrist flexion and extension. Next, attention was placed to the carpal tunnel. A transverse incision was made a few millimeters proximal to the distal wrist crease in line with ulnar border of the palmaris longus tendon. Dissection was carried down through subcutaneous tissue with tenotomy scissors. The antebrachial fascia was identified and incised. It was then incised for a few millimeters proximal. Next, an oblique incision was made to distal hook of hamate in line with the ring finger. The fat was elevated off the fascia. The fascia was carefully incised. Next, a [place] elevator was placed through the carpal tunnel and any synovial tissue was elevated off the undersurface of the transverse carpal ligament. Next, a blunt trocar and cannula was inserted with the wrist in maximal extension and digital pressure distally. The blunt trocar was removed. The camera was inserted and the nice transverse fibers of the undersurface of the transverse carpal ligament was identified. The hook plate was brought in distally and the transverse carpal ligament was transected distally. Next, a camera was inserted distally and the transverse carpal ligament was transected proximally. Next, a camera and cannula were withdrawn and visualized the cut ends of the transverse carpal ligament. Next, each wound was explored. The release was all the way from the antebrachial fascia in the forearm, all the way through the fat in the palm. The nerve looked to be in excellent condition. A [place] elevator was placed through the carpal tunnel and no remnants of the transverse carpal ligament remained. The wounds were all thoroughly irrigated. Skin was closed with 4-0 nylon suture. Subcutaneous tissue was infiltrated with a total of approximately 5 mL of 0.25% Marcaine. She was placed in a bulky dressing and a volar slab splint. All fingers were pink with brisk capillary refill at the conclusion of the case and after deflation of tourniquet. All sponge and needle counts were correct. The patient was transferred to postoperative recovery room in stable condition. <ELECTRONICALLY SIGNED> By: Mala Powell MD 11/26/20 1219 1616 3570 Mala Powell MD /nt
== END 2020-11-23 17:00 | disposition home or self-care (01) ==
LOC: OR 12:16 → TBA 12:17 → OR 12:35
PROVIDERS: ATTEND Orthopaedic Surgery Hand Surgery
DX: G56.01 Carpal tunnel syndrome, right upper limb (principal); M65.4 Radial styloid tenosynovitis [de Quervain]; J43.9 Emphysema, unspecified; E78.5 Hyperlipidemia, unspecified; K86.1 Other chronic pancreatitis; K21.9 Gastro-esophageal reflux disease without esophagitis; F41.9 Anxiety disorder, unspecified; F17.210 Nicotine dependence, cigarettes, uncomplicated; Z98.890 Other specified postprocedural states; Z79.899 Other long term (current) drug therapy; Z90.710 Acquired absence of both cervix and uterus; Z86.73 Personal history of transient ischemic attack (TIA), and cerebral infarction without residual deficits; Z90.49 Acquired absence of other specified parts of digestive tract
CPT/HCPCS: 50010; 50101; 50386; 51736; 56526; 56969; 57006; 57091; 57179; 62110; 62900; 70005

== ENCOUNTER 2020-12-18 09:46 | Emergency (ER) | payer OTHER ==
[~2020-12-18] VITALS: Ht 170.2 cm; Wt 103.4 kg
[2020-12-18] MEDS ORDERED: FLUCONAZOLE200 MG PO (11:44)
[2020-12-18 12:59] VITALS: BP 125/62
--- NOTE | 2020-12-19 10:16 | EKG ---
[place] [address] [facility] [place] [address] ELECTROCARDIOGRAM REPORT Name: TRISTIAN SNEEDLYN ALLYSSA Room #: [facility]P [facility] [id number] Admission: 12/18/20 Attend Phys: Discharge: 12/18/20 Date of : 59 Report #: [id number] [facility] ED Test Date: 2020-12-18 Test Time: 12:58:31 Pat Name: MIGDALIA SNEED Department: Room: Gender: Phlebotomist Medical Lab Assistant: kf : 1955 Requested By: Phoenix Perez Order Number: [id number] MD: Candelario Rodriguez Measurements Intervals [place] Rate: 66 P: 67 [place]: 180 QRS: 55 QRSD: 91 T: 36 QT: 400 QTc: 420 Interpretive Statements Sinus arrhythmia Consider left atrial enlargement Compared to ECG 11/02/2020 19:02:48 Sinus rhythm no longer present Electronically Signed On 12-19-2020 10:15:55 SANITARY ENGINEER by Candelario Rodriguez [email or web address] <ELECTRONICALLY SIGNED> By: Candelario Rodriguez MD 12/19/20 1015 1258 1258 MD KEI Meier
== END 2020-12-18 13:07 | disposition home or self-care (01) ==
LOC: ER 09:46
DX: R07.0 Pain in throat (principal); Z20.828 Contact with and (suspected) exposure to other viral communicable diseases; J44.9 Chronic obstructive pulmonary disease, unspecified; F17.210 Nicotine dependence, cigarettes, uncomplicated; Z88.5 Allergy status to narcotic agent; Z88.1 Allergy status to other antibiotic agents; Z88.8 Allergy status to other drugs, medicaments and biological substances; Z79.899 Other long term (current) drug therapy; Z79.82 Long term (current) use of aspirin; Z90.710 Acquired absence of both cervix and uterus; Z90.49 Acquired absence of other specified parts of digestive tract; Z86.73 Personal history of transient ischemic attack (TIA), and cerebral infarction without residual deficits

== ENCOUNTER 2021-01-08 08:41 | Emergency (ER) | payer OTHER ==
[~2021-01-08] VITALS: Ht 170.2 cm; Wt 104.3 kg
[~2021-01-08 08:41] MED LIST changes: +FLUCONAZOLE200 MG PO
[2021-01-08 09:29] LABS: URINE BILIRUBIN NEGATIVE (Negative); URINE BLOOD NEGATIVE (Negative); URINE GLUCOSE-RANDOM* NEGATIVE (Negative); URINE KETONES NEGATIVE (Negative); URINE SPECIFIC GRAVITY 1.025 (1.005-1.035); URINE UROBILINOGEN 0.2 E.U./dl (0.2-1.0)
[2021-01-08] MEDS ORDERED: NORCO7.5 PO (09:48)
[2021-01-08 09:52] LABS: ABSOLUTE NEUTROPHILS 3.5 thou/uL (1.4-8.2); BASOPHILS 0.9 % (0.0-2.0); HEMATOCRIT 37.7 % (37.0-47.0); HEMOGLOBIN 11.8 gm/dL (12.0-15.0); LYMPHOCYTES 32.1 % (24.0-44.0); MCH 28.6 pg (26.0-34.0); MCHC 31.4 g/dL (28.0-37.0); MCV 91.2 fL (80.0-100.0); MONOCYTES 8.3 % (1.0-8.0); PLATELET COUNT 328 thou/uL (150-400); POLYS 57.7 % (36.0-66.0); RBC 4.13 mil/uL (4.20-5.00); RDW 17.2 % (10.5-14.5); WBC 6.1 thou/uL (4.0-11.0)
[2021-01-08 09:52] LABS: SSA (PROTEIN CONFIRMATORY) NEGATIVE (Negative); URINE REDUCING SUBSTANCE NEGATIVE
[2021-01-08 09:54] LABS: URINE PROTEIN (DIPSTICK) NEGATIVE (Negative)
[2021-01-08 09:55] LABS: URINE CLARITY HAZY
[2021-01-08 09:58] LABS: CALCIUM 8.3 mg/dL (8.5-10.1); CREATININE 0.9 mg/dL (0.6-1.0); POTASSIUM 3.7 mmol/L (3.5-5.1)
[2021-01-08 09:59] LABS: CASTS None Seen /LPF (None Seen); SQUAMOUS >10 Many /LPF (0-3); URINE COLOR GREEN
[2021-01-08 10:00] LABS: CRYSTALS None Seen /LPF (None Seen); URINE RBC None Seen /HPF (0-2); URINE WBC-REFLEX 6-15 Few /HPF (0-5); YEAST-REFLEX Present (None Seen)
[2021-01-08] MEDS ORDERED: VOLTAREN GEL 1100 G1 TOP (10:04)
[2021-01-08 10:05] LABS: ALBUMIN 3.1 g/dL (3.4-5.0); TOTAL BILIRUBIN 0.1 mg/dL (0.2-1.0); TOTAL PROTEIN 6.2 g/dL (6.4-8.2)
[2021-01-08] MEDS ORDERED: VITAMIN B-121000 MC2 SUBLING (10:07)
[2021-01-08] MEDS ORDERED: ACYCLOVIR 400400 MG PO (10:08)
[2021-01-08] MEDS ORDERED: BACTRIM DS TAB1 EACH PO (10:09)
[2021-01-08] MEDS ORDERED: POTASSIUM20 PO (10:11)
[2021-01-08] MEDS ORDERED: OMEPRAZOLE MAGN20 MG PO (10:13)
[2021-01-08] MEDS ORDERED: METHENAMINE PO (10:21)
[2021-01-08] MEDS ORDERED: AUGMENTIN 875-1 EACH PO (10:32)
[2021-01-08 10:48] VITALS: BP 120/59
== END 2021-01-08 10:49 | disposition home or self-care (01) ==
LOC: ER 08:41
PROVIDERS: Emergency Medicine
DX: N39.0 Urinary tract infection, site not specified (principal); K52.9 Noninfective gastroenteritis and colitis, unspecified; K21.9 Gastro-esophageal reflux disease without esophagitis; E78.5 Hyperlipidemia, unspecified; F41.9 Anxiety disorder, unspecified; J44.9 Chronic obstructive pulmonary disease, unspecified; I50.9 Heart failure, unspecified; F17.210 Nicotine dependence, cigarettes, uncomplicated; Z90.711 Acquired absence of uterus with remaining cervical stump; Z90.49 Acquired absence of other specified parts of digestive tract; Z98.890 Other specified postprocedural states; Z86.73 Personal history of transient ischemic attack (TIA), and cerebral infarction without residual deficits; Z79.899 Other long term (current) drug therapy; Z79.82 Long term (current) use of aspirin; Z88.8 Allergy status to other drugs, medicaments and biological substances; Z88.5 Allergy status to narcotic agent

== ENCOUNTER 2021-03-06 09:20 | Emergency (ER) | payer OTHER ==
[~2021-03-06] VITALS: Ht 170.2 cm; Wt 104.3 kg
[~2021-03-06 09:20] MED LIST changes: +METHENAMINE PO; +NORCO7.5 PO; +VITAMIN B-121000 MC2 SUBLING; +VOLTAREN GEL 1100 G1 TOP
[2021-03-06 10:51] LABS: URINE BILIRUBIN NEGATIVE (Negative); URINE BLOOD TRACE (Negative); URINE CLARITY CLEAR; URINE GLUCOSE-RANDOM* NEGATIVE (Negative); URINE KETONES NEGATIVE (Negative); URINE LEUKOCYTES-REFLEX TRACE (Negative); URINE NITRITE-REFLEX NEGATIVE (Negative); URINE PROTEIN (DIPSTICK) 1+ (Negative); URINE UROBILINOGEN 0.2 E.U./dl (0.2-1.0)
[2021-03-06 10:57] LABS: URINE COLOR GREEN
[2021-03-06 11:07] LABS: MUCUS 4-6 Moderate strn/LPF (None Seen); SQUAMOUS >10 Many /LPF (0-3)
[2021-03-06 11:09] LABS: BACTERIA-REFLEX >30 Many /HPF (None Seen); CRYSTALS None Seen /LPF (None Seen); URINE RBC 0-2 Rare /HPF (0-2); URINE WBC-REFLEX 0-5 Rare /HPF (0-5); YEAST-REFLEX Present (None Seen)
[2021-03-06 11:11] LABS: HYALINE CASTS 0-3 Few /LPF (None Seen)
[2021-03-06 12:09] LABS: ABSOLUTE NEUTROPHILS 3.5 thou/uL (1.4-8.2); EOSINOPHILS 1.4 % (0.0-3.0); HEMATOCRIT 34.4 % (37.0-47.0); HEMOGLOBIN 11.2 gm/dL (12.0-15.0); LYMPHOCYTES 34.3 % (24.0-44.0); MCHC 32.6 g/dL (28.0-37.0); MONOCYTES 7.8 % (1.0-8.0); PLATELET COUNT 324 thou/uL (150-400); POLYS 55.5 % (36.0-66.0); RBC 3.87 mil/uL (4.20-5.00); RDW 16.8 % (10.5-14.5); WBC 6.3 thou/uL (4.0-11.0)
[2021-03-06 12:16] LABS: ANION GAP 10 mmol/L (7-16); BUN 9 mg/dL (7-18); CALCIUM 8.3 mg/dL (8.5-10.1); CHLORIDE 110 mmol/L (98-107); CO2 25 mmol/L (21-32); CREATININE 0.9 mg/dL (0.6-1.0); GLUCOSE 88 mg/dL (74-106); POTASSIUM 4.1 mmol/L (3.5-5.1); SODIUM 145 mmol/L (136-145)
[2021-03-06 12:23] LABS: ALBUMIN 3.1 g/dL (3.4-5.0); DIRECT BILIRUBIN < 0.1 mg/dL (<0.1-0.2); LIPASE 62 U/L (73-393); SGOT 17 U/L (15-37); SGPT 13 U/L (30-65); TOTAL BILIRUBIN 0.3 mg/dL (0.2-1.0); TOTAL PROTEIN 6.1 g/dL (6.4-8.2)
[2021-03-06 14:32] VITALS: BP 147/70
== END 2021-03-06 14:33 | disposition home or self-care (01) ==
LOC: ER 09:20
PROVIDERS: Emergency Medicine
DX: N30.10 Interstitial cystitis (chronic) without hematuria (principal); R41.0 Disorientation, unspecified; J44.9 Chronic obstructive pulmonary disease, unspecified; K21.9 Gastro-esophageal reflux disease without esophagitis; E78.5 Hyperlipidemia, unspecified; I50.9 Heart failure, unspecified; F17.210 Nicotine dependence, cigarettes, uncomplicated; Z90.49 Acquired absence of other specified parts of digestive tract; Z90.710 Acquired absence of both cervix and uterus; Z79.899 Other long term (current) drug therapy; Z88.5 Allergy status to narcotic agent; Z88.8 Allergy status to other drugs, medicaments and biological substances

== ENCOUNTER 2021-04-23 12:26 | Inpatient (IN) | payer OTHER ==
[~2021-04-23] VITALS: Ht 170.2 cm; Wt 106.8 kg
[~2021-04-23 12:26] MED LIST changes: -ASPIR 8181 MG PO; +CHILDREN'S ASPI81 MG PO; +HIPREX1 GM PO; +HYDROCHLOROTHIA25 M1 PO; +KLOR-CON M1010 MEQ PO; -METHENAMINE PO; +PRAVACHOL 20 MG20 M1 PO; -PRAVACHOL20 MG PO; +VITAMIN D325 MC4 PO; -VITAMIN D3250 MCG PO
[2021-04-23 12:45] VITALS: BP 117/84
[2021-04-23 13:13] LABS: ABSOLUTE NEUTROPHILS 4.9 thou/uL (1.4-8.2); EOSINOPHILS 0.9 % (0.0-3.0); HEMATOCRIT 35.8 % (37.0-47.0); HEMOGLOBIN 11.4 gm/dL (12.0-15.0); LYMPHOCYTES 27.8 % (24.0-44.0); MCH 28.7 pg (26.0-34.0); MCV 89.8 fL (80.0-100.0); MONOCYTES 6.2 % (1.0-8.0); PLATELET COUNT 458 thou/uL (150-400); POLYS 64.1 % (36.0-66.0); RBC 3.99 mil/uL (4.20-5.00); RDW 17.4 % (10.5-14.5); WBC 7.7 thou/uL (4.0-11.0)
[2021-04-23 13:23] LABS: ANION GAP 12 mmol/L (7-16); BUN 13 mg/dL (7-18); CHLORIDE 111 mmol/L (98-107); CO2 22 mmol/L (21-32); GLUCOSE 92 mg/dL (74-106); POTASSIUM 3.9 mmol/L (3.5-5.1); SODIUM 145 mmol/L (136-145)
[2021-04-23 13:32] LABS: ALBUMIN 3.4 g/dL (3.4-5.0); SGOT 13 U/L (15-37); SGPT 17 U/L (14-59); TOTAL BILIRUBIN 0.3 mg/dL (0.2-1.0); TOTAL PROTEIN 6.7 g/dL (6.4-8.2); TROPONIN-I <0.06 ng/mL (<0.06)
[2021-04-23 15:31] VITALS: BP 117/84
--- NOTE | 2021-04-23 15:46 | NUR ---
ULTRASOUND AT BEDSIDE TO DO US. WILL TAKE PT UPSTAIRS WHEN COMPLETE
[2021-04-23 16:23] VITALS: BP 132/69
[2021-04-23 16:51] VITALS: BP 119/59
--- NOTE | 2021-04-23 19:20 | NUR ---
Received pt from the ED, informed Dr. Walter. Pt complains of non cardiac chest pain that has been there for weeks, currently being abx. Symptoms have been getting worse. Some home medications restarted, admission requirements completed. Pt is up ad jose manuel and steady on her gait. Complete med list given to phamacist for enrty d/t volume of medications taken at home. Pt complains of her shingles flaring up, no rashes seen upon inspection. Pain is managed with medication, partial releif is noted. POC followed, no lsigns of distress noted, endorsed to the night nurse.
[2021-04-23 19:59] VITALS: BP 139/69
[2021-04-23] MEDS ORDERED: FLEXERIL PO (20:18)
[2021-04-23] MEDS ORDERED: AAA-MED REC COMPLETE PO (20:19)
[2021-04-23] MEDS ORDERED: FLUCONAZOLE 10100 MG PO (20:21)
[2021-04-23] MEDS ORDERED: DOXYCYCLINE 10100 M2 PO (20:21)
[2021-04-23] MEDS ORDERED: PROTONIX40 M2 PO (20:22)
[2021-04-24] MEDS ORDERED: FLUCONAZOLE200 MG PO (04:03)
--- NOTE | 2021-04-24 07:01 | NUR ---
Assumed pt care at 1900. A/OX4,VSS. C/o non cardiac chest pain/bladder pain medicated with [place] with some relief reported. C/o nausea as well medicated with Zofran with relief reported. Up with SBA to BSC. Pt's urine is blue in color r/t Uroav-B. SR on telemetry. Has questions regarding home meds/PE awaiting to talk to her. Endorsed to day nurse. Right chest port patent and saline locked.
[2021-04-24 08:02] VITALS: BP 101/56
--- NOTE | 2021-04-24 13:12 | EKG ---
[address] [address] ELECTROCARDIOGRAM REPORT Name: TRISTIAN SNEEDCATE SPIVEY Room #: 462-P ADM IN M.R.#: [id number] Admission: 04/23/21 Attend Phys: Yuri Walter MD Discharge: Date of : 59 Report #: [id number] [facility] ED Test Date: 2021-04-23 Test Time: 12:35:43 Pat Name: MIGDALIA SNEED Department: Room: 462 Gender: F Comb Capper: AYAAN : 1955 Requested By: Phoenix Perez Order Number: [id number] MD: Candealrio Rodriguez Measurements Intervals [place] Rate: 81 P: 68 [place]: 158 QRS: 48 QRSD: 75 T: 32 QT: 349 QTc: 405 Interpretive Statements Sinus rhythm Compared to ECG 12/18/2020 12:58:31 Sinus arrhythmia no longer present Electronically Signed On 04-24-2021 13:12:24 CDT by Candelario Rodriguez [email or web address] <ELECTRONICALLY SIGNED> By: Candelario Rodriguez MD 04/24/21 1312 D: 05/1234 1235 Candelario Rodriguez MD /ABEL
[2021-04-24 17:13] VITALS: BP 116/76
--- NOTE | 2021-04-24 19:48 | NUR ---
Assumed pt care this am, VS stable. Pt complained of nausea and vomiting. Mulitple medications tried and was requested, medications given as per emar. Pain is managed with medication, oral meds were refused until nauea and vomiting has resolved. at the bedside in the pm. POC followed, endorsed to the night nurse. Lovenox injections to be educated by the night nurse.
[2021-04-24 20:16] VITALS: BP 108/66
--- NOTE | 2021-04-25 05:28 | NUR ---
patient aox4 makes needs known.pain and nausea controlled this shift. scd on. patient encouraged fluids, food offered.patient in bed asleep at this time breathing regular and unlaboured.
[2021-04-25 07:46] VITALS: BP 100/44
--- NOTE | 2021-04-25 10:46 | NUR ---
ASSUMED PT CARE THIS AM. PT IS ALERT & ORIENTED X4. PT HAS R CHEST PORT. PT IS UP AD ROXANNE. PT HAS SCD IN PLACE. PT IS ON ROOM AIR. PT C/O OF NAUSEA AND GIVEN NAUSEA MEDICATION PER PT REQUEST. PT IS ON TELE MONITOR ON. WEIGHTED PT TODAY ORDERED. PT TOLERATED MEDICATION AND DIET WELL THIS AM. PT ON THE BED WATCHING TV, BED ON THE LOWEST POSITION, SIDE RAILS UP, CALL LIGHT WITHIN REACH. WILL CONTINUE TO MONITOR PT. FOLLOW POC.
[2021-04-25 12:39] LABS: PROTIME 10.9 Seconds (10.5-12.1)
[2021-04-25 16:02] VITALS: BP 130/73
[2021-04-25 20:35] VITALS: BP 111/49
--- NOTE | 2021-04-26 03:46 | NUR ---
PATIENT AOX4 MAKES NEEDS KNOWN.NAUSEA AND PAIN CONTROLLED THIS SHIFT. PATIENT IS UP AT ROXANNE. PATIENT IN BED ASLEEP AT THIS TIME BREATHING REGULAR AND UNLABOURED.
[2021-04-26 06:22] LABS: HEMATOCRIT 34.2 % (37.0-47.0); HEMOGLOBIN 11.1 gm/dL (12.0-15.0); MCH 29.1 pg (26.0-34.0); MCHC 32.5 g/dL (28.0-37.0); MCV 89.5 fL (80.0-100.0); RBC 3.82 mil/uL (4.20-5.00); WBC 6.1 thou/uL (4.0-11.0)
[2021-04-26 06:30] LABS: INR 1.03; PROTIME 11.2 Seconds (10.5-12.1)
[2021-04-26 08:00] VITALS: BP 127/75
[2021-04-26 08:23] VITALS: BP 127/75
--- NOTE | 2021-04-26 11:12 | NUR ---
Initial high risk nutrition screening for wt loss and decreased appetite. Pt with chronic hx gastroparesis, admitted with pulmonary embolus. Visit this am, pt not wanting to participate much in conversation. Stated vomitted her meds this am, and complained pain but cannot get more medication per RN. Has been eating 90% of meals yesterday, able to order own meals. On erythromycin. Wts are stable 225-230 lb. Has order for coumadin, but pt did not want to discuss anything right now again due to pain. Low nutrition risk
--- NOTE | 2021-04-26 11:56 | NUR ---
PT ADMITTED RELATED TO PULMONARY EMBOLUS. CM REVEIWED CHART AND SPOKE WITH CARE TEAM. CM MET WITH PT AT BEDSIDE THIS DAY. PT APPEARED TO BE A&O X4. CM ROLE INTRODUCED. PT INDICATED SHE RESIDES IN A HOUSE WITH HER SPOUSE WITH 13 STEPS TO ENTER AND 6 FROM FRONT PORCH. 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 PT HAS PRN O2 THROUGH [facility] AND A NEBULIZER FOR HOME USE. DR. NICOLE IS PCP. GI SEEING AND PT WAS STARTED ON LOVENOX AND COUMADIN. CM FOLLOWING REGARDING DC PLANNING. POSSIBLE DC HOME TOMORROW.
--- NOTE | 2021-04-26 16:04 | NUR ---
Assumed pt care at 7am.Pt in bed alert and oriented x4.Assessment completed. vss.Dr Walter here,order noted.Consult called to GI group. Dr Puentes to see pt later this evening.Medicated pt with both pain and antinausea meds as needed with relief.Pt here,updates given.Pt in bed resting and watching tv.Will continue to monitor.
[2021-04-26 16:33] VITALS: BP 118/66
[2021-04-27 05:59] LABS: HEMATOCRIT 32.7 % (37.0-47.0); HEMOGLOBIN 10.6 gm/dL (12.0-15.0); MCH 29.2 pg (26.0-34.0); MCHC 32.3 g/dL (28.0-37.0); MCV 90.5 fL (80.0-100.0); RBC 3.62 mil/uL (4.20-5.00); RDW 17.3 % (10.5-14.5); WBC 5.8 thou/uL (4.0-11.0)
[2021-04-27 06:11] LABS: PROTIME 16.9 Seconds (10.5-12.1)
[2021-04-27 06:12] LABS: INR 1.58
[2021-04-27 06:16] LABS: CALCIUM 8.5 mg/dL (8.5-10.1); CREATININE 0.9 mg/dL (0.6-1.0); POTASSIUM 3.6 mmol/L (3.5-5.1)
--- NOTE | 2021-04-27 06:32 | NUR ---
ASSUMED CARE OF PT AT SHIFT CHANGE. PT IS AOX4 AND LETS NEEDS BE KNOWN. PT IS UP AD ROXANNE. PT REPOTRTED SOME PAIN AND NAUSEA; PRNS PROVIDED. PT DENIED SOA. ASSESSMENT CHARTED. PT RAN SR/SB ON TELE. PT SLEPT PART OF THE SHIFT. VSS AND NO S/S OD ACUTE DISTRESS. WILL CONTINUE TO MONITOR.
[2021-04-27] MEDS ORDERED: WARFARIN SODIUM5 MG PO (07:24)
[2021-04-27] MEDS ORDERED: ENOXAPARIN100 MG/11 SUBQ (07:25)
[2021-04-27] MEDS ORDERED: NORCO7.5 PO (07:25)
[2021-04-27 08:53] VITALS: BP 122/78
[2021-04-27 11:02] VITALS: BP 122/78
--- NOTE | 2021-04-27 12:07 | NUR ---
Received awake on bed. Due medications given as prescribed, able to swallow meds w/o difficulty. On room air. Vital signs stable. On telemetry; no complains and signs of chest pain, crushing sensation and heaviness. Assisted in ADLs. On regular diet- tolerating well; no vomiting and no abdominal pain noted. Pt known to have chronic nausea, Dr Walter aware re; this, PRN anti emetics given as prescribed. Continent of bowel and bladder, able to go to the toilet independently. Calls for assistance appropriately. Complained of pain, due PRN pain meds given as prescribed. With port at R chest- accessed. To continue monitoring patient. Possible discharge today. Pt seen and examined by Dr Walter this AM, for chest xray this AM then for discharge. Brought down to xray via wheelchair, back to room safely. Discharge instructions, follow up schedule given as prescribed. Discharge forms signed. Prescription given to patient- no questions or objections re: discharge instruction. R chest port deaccessed as per protocol; no further bleeding noted; dressing C/D/I. Pt requesting to be wheeled to outpatient pharmacy to have her meds refilled then her will pick her up from there. Telemetry stopped, monitor returned. Patient discharged from the unit via wheelchair with her personal belongings.
--- NOTE | 2021-04-27 12:30 | NUR ---
CARE TEAM INDICATED THAT PT IS MEDICALLY STABLE TO DC HOME THIS DAY. PT IS TO DC HOME TO SELF CARE. NO OTHER CM INTERVENTION INDICATED. CASE CLOSED.
--- NOTE | 2021-05-02 15:05 | HC ---
[facility] [place] [address] CONSULTATION Name: MIGDALIA SNEED Room #: 462-P [facility] IN M.R.#: [id number] Admission: 04/23/21 Attend Phys: Yuri Walter MD Discharge: 04/27/21 Date of : 59 Report #: [id number] THIS REPORT FOR: cc: Yuri Walter MD, Neal A. MD McElhinney, Christian C. MD ~ DOC #: [id number] cc: Yuri Walter MD, MD Yohannes Banda MD DATE OF SERVICE: 04/26/2021 HISTORY OF PRESENT ILLNESS: The patient is a 65-year-old female with multiple medical problems who is followed by my partner, Dr. Rj Choi for recurrent dysphagia and dilation. Also, with a history of gastroparesis as well as chronic pancreatitis. She underwent a repeat upper endoscopy with esophageal dilation just a few days ago, began having chest pain approximately 2 weeks ago, the pain became more severe. She underwent a CT arteriogram of her chest on 04/23/2021, which showed acute pulmonary emboli with distal segmental and subsegmental arteries in the medial left lower lobe, some emphysematous changes were noted as well. The patient then underwent an ultrasound of her lower extremities, which was negative for DVT. Again, the patient has a history of gastroparesis and has noted increasing nausea and vomiting. She typically uses Compazine, Phenergan and suppositories at home, which hopefully controls her symptoms. She has tried Zofran in the past. She states this has not been helpful. She is already on erythromycin. She cannot tolerate Reglan due to tardive dyskinesia type of side effects. She is also on multiple medications including chronic narcotics. The patient has also had a history of chronic pancreatitis. She states this was diagnosed by ____ at [facility], I suspect by endoscopic ultrasound, although I do not have a copy of these results. She has had previous cholecystectomy many years ago. Her esophageal dilation is helpful. She denies any dysphagia at this time. She typically has this repeated every few months for recurrent dysphagia. She has had a previous Port-A-Cath placement due to her multiple medications and difficulty obtaining IV access. She currently reports mild chest discomfort. No significant shortness of breath. Her cough has improved. She is currently eating fried chicken and mashed potatoes at this time, but states she was having nausea and vomiting this morning and around lunchtime. PAST MEDICAL HISTORY: History of gastroparesis, history of recurrent dysphagia, history of chronic pancreatitis, previous hysterectomy, appendectomy, cholecystectomy, bladder repair, recent diagnosis of pulmonary embolus as described above. She has had several surgeries for lipomas in the past, gastroesophageal reflux disease, hyperlipidemia, obesity, anxiety, COPD, irritable bowel syndrome, several Hnyw-R-Ivpjc placed in the past, interstitial cystitis. She uses O2 at 2 liters nasal cannula on p.r.n. basis. [address] [address] CONSULTATION Name: NEDRAMIGDALIACATE SPIVEY Room #: 462-P [facility] IN M.R.#: [id number] Admission: 04/23/21 Attend Phys: Yuri Walter MD Discharge: 04/27/21 Date of : 59 Report #: [id number] MEDICATIONS: On admission, Pravachol, Linzess, aspirin 81 mg, albuterol nebulizer, Ativan, Trelegy Ellipta, erythromycin 250 mg p.o. q.a.c. and at bedtime, hydrochlorothiazide, Belladonna and opium suppository p.r.n. for bladder spasms, Creon with meals, vitamin E, cimetidine, ProAir, vitamin D3, Benadryl p.r.n., methocarbamol p.r.n., hydrocodone/acetaminophen q.6 hours p.r.n., Voltaren gel, acyclovir, Hiprex, Flexeril, fluconazole, doxycycline, Protonix, Flomax, Lidoderm patch p.r.n., spironolactone 25 mg per day, vitamin B12. REVIEW OF SYSTEMS: As per HPI. ALLERGIES: MULTIPLE INCLUDING TEGRETOL, PLAVIX, GABAPENTIN, METHYLPREDNISOLONE, REGLAN, PREDNISONE, COMPAZINE, CODEINE, MORPHINE, METRONIDAZOLE, LEXAPRO. FAMILY HISTORY: Negative for colon cancer. SOCIAL HISTORY: She smokes on a regular basis 4 to 5 cigarettes per day. She denies any alcohol use. PHYSICAL EXAMINATION: VITAL SIGNS: Temperature is 97.6, pulse 51, blood pressure 127/75, respiratory rate is 16. GENERAL: She is alert and oriented x3, in no acute distress. HEENT: Sclerae nonicteric. Oropharynx clear. NECK: Supple, without lymphadenopathy. CARDIOVASCULAR: Regular rate and rhythm. CHEST: Decreased breath sounds bilaterally. ABDOMEN: Soft. She is mildly tender to palpation in the midepigastric. Nondistended. Normoactive bowel sounds. EXTREMITIES: No cyanosis, clubbing or edema. LABORATORY DATA: Sodium 145, potassium 3.9, chloride 111, bicarbonate 22, BUN 13, creatinine 1.0, glucose 92, AST 13, total bilirubin 0.3, calcium 9.0, alkaline phosphatase 110, ALT 17, total protein 6.7, albumin 3.4. Troponin less than 0.06. BNP is 39. D-dimer 0.77. WBC 6.1, hemoglobin 11.1, platelet count is 377. ASSESSMENT AND PLAN: 1. Pulmonary embolus, new diagnosis, patient with recent chest pain and shortness of breath. She is on aspirin at this time, Coumadin and enoxaparin subcutaneous. 2. History of intermittent nausea and vomiting as well as abdominal pain. The patient has a complex history, in that she has gastroparesis, which could cause her recurrent nausea and vomiting. She already is on max dose of erythromycin [facility] [address] [place] [address] CONSULTATION Name: JUVE SNEEDN ALLYSSA Room #: 462-P [facility] IN .R.#: [id number] Admission: 04/23/21 Attend Phys: Yuri Walter MD Discharge: 04/27/21 Date of : 59 Report #: [id number] and she is unable to tolerate Reglan. She is also on narcotics, which can cause gastroparesis or worsen her nausea and vomiting symptoms. She also has a history of chronic pancreatitis, which could cause abdominal pain, nausea and vomiting. She states she was having nausea and vomiting earlier today, but is at this time eating fried chicken and appears to be tolerating this well. I explained to the patient we could observe, however, she may consider a more bland diet if she has recurrent symptoms. She has already been on multiple different antinausea medications over the years. 3. Recurrent dysphagia, status post frequent dilations by my partner, Dr. Choi, so this was just performed recently. She denies any dysphagia at this time. 4. Constipation. She is on Linzess. 5. Gastroesophageal reflux disease. Continue PPI therapy. Thank you for allowing me to participate in her care. Yohannes Finch MD CCM/ANGELY <ELECTRONICALLY SIGNED> By: Yohannes Finch MD 05/02/21 1505 1726 2238 Yohannes Finch MD /nt
== END 2021-04-27 12:45 | disposition home or self-care (01) | DRG 176 ==
LOC: ER 12:26 → 4W 15:32 → EROBS 15:32 → 4W 16:19
PROVIDERS: Emergency Medicine; ADMIT Family Medicine; ATTEND Family Medicine
DX: I26.99 Other pulmonary embolism without acute cor pulmonale (principal); K86.1 Other chronic pancreatitis; F11.20 Opioid dependence, uncomplicated; Z20.822 Contact with and (suspected) exposure to COVID-19; K21.9 Gastro-esophageal reflux disease without esophagitis; I50.9 Heart failure, unspecified; J44.9 Chronic obstructive pulmonary disease, unspecified; F41.9 Anxiety disorder, unspecified; E78.5 Hyperlipidemia, unspecified; R13.10 Dysphagia, unspecified; F17.210 Nicotine dependence, cigarettes, uncomplicated; K22.2 Esophageal obstruction; K59.09 Other constipation; B02.9 Zoster without complications; J40 Bronchitis, not specified as acute or chronic; M79.7 Fibromyalgia; B37.3 Candidiasis of vulva and vagina; Z90.710 Acquired absence of both cervix and uterus; Z90.49 Acquired absence of other specified parts of digestive tract; Z90.6 Acquired absence of other parts of urinary tract; Z86.73 Personal history of transient ischemic attack (TIA), and cerebral infarction without residual deficits; Z88.6 Allergy status to analgesic agent; Z88.8 Allergy status to other drugs, medicaments and biological substances; Z79.899 Other long term (current) drug therapy
CPT/HCPCS: 10045

== ENCOUNTER 2021-06-05 14:11 | Emergency (ER) | payer OTHER ==
[~2021-06-05] VITALS: Ht 170.2 cm; Wt 103.9 kg
[~2021-06-05 14:11] MED LIST changes: +AAA-MED REC COMPLETE PO; +DOXYCYCLINE 10100 M2 PO; +ENOXAPARIN100 MG/11 SUBQ; +FLEXERIL PO; +FLUCONAZOLE 10100 MG PO; +PROTONIX40 M2 PO; +WARFARIN SODIUM5 MG PO
[2021-06-05] MEDS ORDERED: ENOXAPARIN100 MG/1 M SUBQ (14:32)
[2021-06-05 15:15] LABS: ABSOLUTE NEUTROPHILS 3.5 thou/uL (1.4-8.2); BASOPHILS 0.7 % (0.0-2.0); HEMATOCRIT 34.6 % (37.0-47.0); HEMOGLOBIN 11.3 gm/dL (12.0-15.0); LYMPHOCYTES 45.5 % (24.0-44.0); MCH 29.4 pg (26.0-34.0); MCHC 32.6 g/dL (28.0-37.0); MONOCYTES 5.6 % (1.0-8.0); PLATELET COUNT 352 thou/uL (150-400); POLYS 47.2 % (36.0-66.0); RBC 3.84 mil/uL (4.20-5.00); WBC 7.4 thou/uL (4.0-11.0)
[2021-06-05 15:35] LABS: ANION GAP 9 mmol/L (7-16); BUN 9 mg/dL (7-18); CALCIUM 8.1 mg/dL (8.5-10.1); CHLORIDE 108 mmol/L (98-107); CO2 27 mmol/L (21-32); CREATININE 0.9 mg/dL (0.6-1.0); GLUCOSE 85 mg/dL (74-106); POTASSIUM 3.9 mmol/L (3.5-5.1); SODIUM 144 mmol/L (136-145)
[2021-06-05 15:44] LABS: SGOT 16 U/L (15-37); SGPT 15 U/L (30-65); TOTAL BILIRUBIN 0.2 mg/dL (0.2-1.0); TOTAL PROTEIN 6.1 g/dL (6.4-8.2); TROPONIN-I <0.06 ng/mL (<0.06)
[2021-06-05] MEDS ORDERED: FLEXERIL PO (15:54)
[2021-06-05 16:08] VITALS: BP 123/67
--- NOTE | 2021-06-06 07:50 | EKG ---
[place] [address] [place] [address] ELECTROCARDIOGRAM REPORT Name: JUVE SNEEDN ALLYSSA [id number] Admission: 06/05/21 Attend Phys: Discharge: 06/05/21 Date of : 59 Report #: [id number] [facility] ED Test Date: 2021-06-05 Test Time: 14:22:18 Pat Name: MIGDALIA SNEED Department: Room: Gender: F Steam Blocker: cw : 1955 Requested By: Jg Solares Order Number: [id number] MD: Wolf Santoro Measurements Intervals [place] Rate: 72 P: 56 [place]: 166 QRS: 48 QRSD: 74 T: 35 QT: 365 QTc: 400 Interpretive Statements Sinus rhythm Low voltage, precordial leads Baseline wander in lead(s) V4 Compared to ECG 04/23/2021 12:35:43 Low QRS voltage now present Electronically Signed On 06-06-2021 7:50:22 CDT by Wolf Santoro [email or web address] <ELECTRONICALLY SIGNED> By: Wolf Santoro MD, [facility] 06/06/21 0750 21 21 Wolf Santoro MD, FACC /EPI
== END 2021-06-05 16:09 | disposition home or self-care (01) ==
LOC: ER 14:11
PROVIDERS: Emergency Medicine
DX: R07.89 Other chest pain (principal); M79.622 Pain in left upper arm; R11.0 Nausea; I50.9 Heart failure, unspecified; K21.9 Gastro-esophageal reflux disease without esophagitis; E78.5 Hyperlipidemia, unspecified; J44.9 Chronic obstructive pulmonary disease, unspecified; F17.210 Nicotine dependence, cigarettes, uncomplicated; Z86.711 Personal history of pulmonary embolism; Z90.710 Acquired absence of both cervix and uterus; Z90.89 Acquired absence of other organs; Z90.49 Acquired absence of other specified parts of digestive tract; Z98.890 Other specified postprocedural states; Z86.73 Personal history of transient ischemic attack (TIA), and cerebral infarction without residual deficits; Z88.8 Allergy status to other drugs, medicaments and biological substances; Z88.5 Allergy status to narcotic agent

== ENCOUNTER → 2021-06-06 | Outpatient (CLI) | payer OTHER ==
[~2021-06-06] MED LIST changes: +ENOXAPARIN100 MG/1 M SUBQ
== END ==
LOC: SJCVCIMAG 09:21
PROVIDERS: ATTEND Internal Medicine
DX: R22.1 Localized swelling, mass and lump, neck (principal); M54.2 Cervicalgia; F17.200 Nicotine dependence, unspecified, uncomplicated; Z90.710 Acquired absence of both cervix and uterus

== ENCOUNTER → 2021-06-16 | Emergency (ER) | payer OTHER ==
[~2021-06-16] VITALS: Ht 170.2 cm; Wt 104.3 kg
[2021-06-16 14:36] VITALS: BP 133/104
== END ==
LOC: ER 14:29
DX: Z53.21 Procedure and treatment not carried out due to patient leaving prior to being seen by health care provider (principal)

== ENCOUNTER → 2021-07-25 | Outpatient (CLI) | payer OTHER | LOC: CAT 07-19 09:22 | PROVIDERS: ATTEND Family Medicine | DX: M51.17 Intervertebral disc disorders with radiculopathy, lumbosacral region (principal) ==

== ENCOUNTER 2021-08-08 08:21 | Emergency (ER) | payer OTHER ==
[~2021-08-08] VITALS: Ht 170.2 cm; Wt 104.3 kg
[2021-08-08 10:54] LABS: URINE BILIRUBIN NEGATIVE (Negative); URINE BLOOD NEGATIVE (Negative); URINE CLARITY SL CLOUDY; URINE COLOR GREEN; URINE GLUCOSE-RANDOM* NEGATIVE (Negative); URINE KETONES TRACE (Negative); URINE LEUKOCYTES-REFLEX NEGATIVE (Negative); URINE NITRITE-REFLEX NEGATIVE (Negative); URINE PROTEIN (DIPSTICK) NEGATIVE (Negative); URINE SPECIFIC GRAVITY >= 1.030 (1.005-1.035); URINE UROBILINOGEN 0.2 E.U./dl (0.2-1.0)
[2021-08-08] MEDS ORDERED: WARFARIN SODIUM5 MG PO (11:37)
[2021-08-08 13:22] LABS: ABSOLUTE NEUTROPHILS 5.4 thou/uL (1.4-8.2); BASOPHILS 0.8 % (0.0-2.0); EOSINOPHILS 1.1 % (0.0-3.0); HEMATOCRIT 35.7 % (37.0-47.0); HEMOGLOBIN 11.5 gm/dL (12.0-15.0); LYMPHOCYTES 27.7 % (24.0-44.0); MCH 29.2 pg (26.0-34.0); MCHC 32.3 g/dL (28.0-37.0); MCV 90.4 fL (80.0-100.0); MONOCYTES 7.8 % (1.0-8.0); PLATELET COUNT 338 thou/uL (150-400); POLYS 62.6 % (36.0-66.0); RBC 3.95 mil/uL (4.20-5.00); RDW 17.8 % (10.5-14.5); WBC 8.6 thou/uL (4.0-11.0)
[2021-08-08 13:38] LABS: CALCIUM 8.9 mg/dL (8.5-10.1); POTASSIUM 4.2 mmol/L (3.5-5.1)
[2021-08-08 13:43] LABS: ALBUMIN 3.1 g/dL (3.4-5.0); TOTAL BILIRUBIN 0.2 mg/dL (0.2-1.0); TOTAL PROTEIN 6.1 g/dL (6.4-8.2)
[2021-08-08] MEDS ORDERED: PERCOCET 5-3251 EACH PO (14:00)
[2021-08-08 14:21] VITALS: BP 124/60
== END 2021-08-08 14:31 | disposition home or self-care (01) ==
LOC: ER 08:21
PROVIDERS: Emergency Medicine
DX: N32.89 Other specified disorders of bladder (principal); N30.10 Interstitial cystitis (chronic) without hematuria; M79.605 Pain in left leg; K21.9 Gastro-esophageal reflux disease without esophagitis; E78.5 Hyperlipidemia, unspecified; F41.9 Anxiety disorder, unspecified; J44.9 Chronic obstructive pulmonary disease, unspecified; I50.9 Heart failure, unspecified; F17.210 Nicotine dependence, cigarettes, uncomplicated; F12.90 Cannabis use, unspecified, uncomplicated; Z90.710 Acquired absence of both cervix and uterus; Z90.49 Acquired absence of other specified parts of digestive tract; Z79.891 Long term (current) use of opiate analgesic; Z79.51 Long term (current) use of inhaled steroids; Z79.1 Long term (current) use of non-steroidal anti-inflammatories (NSAID); Z79.899 Other long term (current) drug therapy; Z88.6 Allergy status to analgesic agent; Z88.5 Allergy status to narcotic agent; Z88.8 Allergy status to other drugs, medicaments and biological substances; Z91.09 Other allergy status, other than to drugs and biological substances

== ENCOUNTER 2021-10-04 08:05 | Emergency (ER) | payer OTHER ==
[~2021-10-04] VITALS: Ht 170.2 cm; Wt 104.3 kg
[2021-10-04 09:14] LABS: ABSOLUTE NEUTROPHILS 5.4 thou/uL (1.4-8.2); BASOPHILS 0.8 % (0.0-2.0); EOSINOPHILS 0.9 % (0.0-3.0); HEMATOCRIT 37.1 % (37.0-47.0); HEMOGLOBIN 12.1 gm/dL (12.0-15.0); LYMPHOCYTES 21.4 % (24.0-44.0); MCH 29.3 pg (26.0-34.0); MCHC 32.6 g/dL (28.0-37.0); MONOCYTES 5.5 % (1.0-8.0); PLATELET COUNT 391 thou/uL (150-400); POLYS 71.4 % (36.0-66.0); RBC 4.12 mil/uL (4.20-5.00); RDW 16.8 % (10.5-14.5); WBC 7.6 thou/uL (4.0-11.0)
[2021-10-04 09:29] LABS: URINE BLOOD NEGATIVE (Negative); URINE CLARITY CLEAR; URINE GLUCOSE-RANDOM* NEGATIVE (Negative); URINE KETONES TRACE (Negative); URINE LEUKOCYTES-REFLEX NEGATIVE (Negative); URINE NITRITE-REFLEX NEGATIVE (Negative); URINE PROTEIN (DIPSTICK) NEGATIVE (Negative); URINE SPECIFIC GRAVITY >= 1.030 (1.005-1.035); URINE UROBILINOGEN 0.2 E.U./dl (0.2-1.0)
[2021-10-04 09:32] LABS: ANION GAP 7 mmol/L (7-16); BUN 9 mg/dL (7-18); CHLORIDE 111 mmol/L (98-107); CO2 24 mmol/L (21-32); CREATININE 1.1 mg/dL (0.6-1.0); GLUCOSE 98 mg/dL (74-106); POTASSIUM 4.3 mmol/L (3.5-5.1); SODIUM 142 mmol/L (136-145)
[2021-10-04 09:32] LABS: ICTOTEST (BILI CONFIRMATORY) Negative (Negative); URINE BILIRUBIN NEGATIVE (Negative); URINE COLOR GREEN
[2021-10-04 09:42] LABS: ALBUMIN 3.3 g/dL (3.4-5.0); DIRECT BILIRUBIN < 0.1 mg/dL (<0.1-0.2); LIPASE 46 U/L (73-393); SGOT 17 U/L (15-37); SGPT 18 U/L (14-59); TOTAL BILIRUBIN 0.2 mg/dL (0.2-1.0); TOTAL PROTEIN 6.7 g/dL (6.4-8.2)
[2021-10-04 12:39] VITALS: BP 135/51
--- NOTE | 2021-10-04 13:58 | EKG ---
[place] [address] [employer] [facility] [place] [address] ELECTROCARDIOGRAM REPORT Name: TRISTIAN SNEEDLYN ALLYSSA Room #: DEP [facility] [id number] Admission: 10/04/21 Attend Phys: Discharge: 10/04/21 Date of : 59 Report #: [id number] [facility] [place] [facility] ED Test Date: 2021-10-04 Test Time: 08:32:40 Pat Name: MIGDALIA SNEED Department: Room: Gender: F Pit Steward: NATHAN : 1955 Requested By: Lauro De Souza Order Number: [id number] MD: Wolf Santoro Measurements Intervals [place] Rate: 73 P: 55 [place]: 164 QRS: 50 QRSD: 99 T: 27 QT: 381 QTc: 420 Interpretive Statements Sinus rhythm Probable left atrial enlargement Baseline wander in lead(s) II Compared to ECG 06/05/2021 14:22:18 No significant changes Electronically Signed On 10-04-2021 13:57:54 METAL SHAPING MACHINE OPERATOR by Wolf Santoro [email or web address] <ELECTRONICALLY SIGNED> By: Wolf Santoro MD, [facility] 10/04/21 1357 0832 1 Wolf Santoro MD, FACC /EPI
--- NOTE | 2021-10-10 06:50 | EKG ---
[address] [address] ELECTROCARDIOGRAM REPORT Name: TRISTIAN SNEEDLYN ALLYSSA [id number] Admission: 10/04/21 Attend Phys: Discharge: 10/04/21 Date of : 59 Report #: [id number] [facility] ED Test Date: 2021-10-04 Test Time: 12:09:28 Pat Name: MIGDALIA SNEED Department: Room: Gender: F Thread Puller: DANIELLE : 1955 Requested By: Lauro De Souza Order Number: [id number] : Wolf Santoro Measurements Intervals [place] Rate: 58 P: 72 [place]: 225 QRS: 70 QRSD: 97 T: 55 QT: 439 QTc: 432 Interpretive Statements Sinus rhythm Compared to ECG 10/04/2021 08:32:40 No sig. change Electronically Signed On 10-10-2021 6:49:50 COFFIN MAKER by Wolf Santoro [email or web address] <ELECTRONICALLY SIGNED> By: Wolf Santoro MD, [facility] 10/10/21 0649 1209 1209 Wolf Santoro MD, FACC /EPI
== END 2021-10-04 12:42 | disposition home or self-care (01) ==
LOC: ER 08:05
PROVIDERS: Student in an Organized Health Care Education/Training Program
DX: R10.32 Left lower quadrant pain (principal); K21.9 Gastro-esophageal reflux disease without esophagitis; I11.0 Hypertensive heart disease with heart failure; I50.9 Heart failure, unspecified; E78.5 Hyperlipidemia, unspecified; F41.9 Anxiety disorder, unspecified; J44.9 Chronic obstructive pulmonary disease, unspecified; K31.84 Gastroparesis; F17.210 Nicotine dependence, cigarettes, uncomplicated; Z90.710 Acquired absence of both cervix and uterus; Z90.49 Acquired absence of other specified parts of digestive tract; Z90.89 Acquired absence of other organs; Z98.890 Other specified postprocedural states; Z79.891 Long term (current) use of opiate analgesic; Z79.1 Long term (current) use of non-steroidal anti-inflammatories (NSAID); Z79.899 Other long term (current) drug therapy; Z79.51 Long term (current) use of inhaled steroids; Z88.6 Allergy status to analgesic agent; Z88.1 Allergy status to other antibiotic agents; Z88.3 Allergy status to other anti-infective agents; Z88.5 Allergy status to narcotic agent; Z88.8 Allergy status to other drugs, medicaments and biological substances

== ENCOUNTER → 2021-11-14 | Day surgery (SDC) | payer OTHER ==
[~2021-11-14] VITALS: Ht 170.2 cm; Wt 104.3 kg
[~2021-11-14] MED LIST changes: +LOVENOX100 MG/1 M SUBQ; +PROMETHAZINE HC25 MG RECTAL; +URIBEL CAPSULE1 EACH PO; +VITAMIN B-12500 MC5 PO; -VITAMIN B-12500 MC5 SUBLING; +VOLTAREN ARTHRI20 GM TOP; -VOLTAREN GEL 1100 G1 TOP; +XARELTO20 MG PO
--- NOTE | ~2021-11-14 | O ---
[facility] [place] [facility] [place] [address] OPERATIVE REPORT Name: MIGDALIA SNEED Room #: REG [facility].#: [id number] Admission: 11/14/21 Attend Phys: Mala Powell, Discharge: Date of : 59 Report #: [id number] THIS REPORT FOR: cc: Yuri Walter MD, Neal A. MD Deardorff, Valerie A. MD ~ DATE OF SERVICE: 11/14/2021 PREOPERATIVE DIAGNOSIS: Right trigger thumb. POSTOPERATIVE DIAGNOSIS: Right trigger thumb. PROCEDURE PERFORMED: Right thumb A1 andres release. SURGEON: Mala Powell MD TYPE OF ANESTHESIA: General mask anesthesia. ESTIMATED BLOOD LOSS: Minimal. TOURNIQUET TIME: 4 minutes. COMPLICATIONS: None. CONDITION: Stable. DISPOSITION: To recovery room. INDICATIONS: The patient is a 66-year-old female with the above-mentioned diagnosis. She elects for operative treatment. The risks, benefits, alternatives and complications were discussed including but not limited to infection, damage to vessels, nerves, incomplete relief or worsening of any symptoms. Informed consent was obtained. The correct extremity was identified and labeled by myself after verbal confirmation of the patient as well as visual confirmation and signed informed consent. DESCRIPTION OF PROCEDURE: The patient was brought to the operating room and placed on the operating table in supine position. She received preoperative antibiotics. Tourniquet was placed over padding. The patient's right upper extremity was sterilely prepped and draped in the usual fashion. A timeout was taken to verify correct patient, operative procedure, operative site, all concurred. The arm was elevated, exsanguinated and the tourniquet inflated. Next, a transverse incision was made at the level of the right thumb A1 andres. Dissection was carried down through subcutaneous tissue with tenotomy scissors. Dissection was carried down all the way to the A1 andres. The A1 andres was easily identified and incised. The tendon looked in excellent condition. The [address] [address] OPERATIVE REPORT Name: MIGDALIA SNEED Room #: REG [facility] M.R.#: [id number] Admission: 11/14/21 Attend Phys: Mala Powell, Discharge: Date of : 59 Report #: [id number] thumb was taken through a passive range of motion. The tendon glided very smoothly. There was no locking, clicking. The wound was thoroughly irrigated. Skin was closed with 4-0 nylon suture. Wounds dressed with Adaptic and sterile gauze after infiltrating the subcutaneous tissues with approximately 2 mL of 0.25% Marcaine. All fingers were pink, brisk capillary refill at the conclusion of case, all sponge and needle counts were correct. The patient transferred to postoperative recovery room in stable condition. By: 1029 1041 Mala Powell MD /stephane
[2021-11-14 08:21] VITALS: BP 103/50
[2021-11-14 09:04] LABS: CALCIUM 8.9 mg/dL (8.5-10.1); POTASSIUM 4.4 mmol/L (3.5-5.1)
[2021-11-14 12:47] VITALS: BP 103/50
--- NOTE | 2021-11-14 12:53 | EKG ---
[place] [address] [facility] [facility] [place] [address] ELECTROCARDIOGRAM REPORT Name: TRISTIAN SNEEDCATE SPIVEY Room #: REG [facility]#: [id number] Admission: 11/14/21 Attend Phys: Mala Powell, Discharge: Date of : 59 Report #: [id number] [facility] Test Date: 2021-11-14 Test Time: 11:42:50 Pat Name: MIGDALIA SNEED Department: Room: Gender: F Health Screener: JENNIFER : 1955 Requested By: Stefania Padilla Order Number: [id number] MD: Wolf Santoro Measurements Intervals [place] Rate: 62 P: 73 [place]: 242 QRS: 44 QRSD: 80 T: 38 QT: 400 QTc: 407 Interpretive Statements Sinus rhythm Prolonged [place] interval Compared to ECG 10/04/2021 12:09:28 First degree AV block now present Electronically Signed On 11-14-2021 12:52:56 GLOBAL COMPENSATION MANAGER by Wolf Santoro [email or web address] <ELECTRONICALLY SIGNED> By: Wolf Santoro MD, [facility] 11/14/21 1252 1142 1142 Wolf Santoro MD, FACC /EPI
== END | disposition home or self-care (01) ==
LOC: OR 06:51
PROVIDERS: Anesthesiology; ATTEND Orthopaedic Surgery Hand Surgery
DX: M65.311 Trigger thumb, right thumb (principal); J43.9 Emphysema, unspecified; E78.5 Hyperlipidemia, unspecified; F41.9 Anxiety disorder, unspecified; K21.9 Gastro-esophageal reflux disease without esophagitis; K86.1 Other chronic pancreatitis; Z98.890 Other specified postprocedural states; Z79.899 Other long term (current) drug therapy; Z86.73 Personal history of transient ischemic attack (TIA), and cerebral infarction without residual deficits; Z20.822 Contact with and (suspected) exposure to COVID-19; Z90.49 Acquired absence of other specified parts of digestive tract; Z90.710 Acquired absence of both cervix and uterus; Z88.8 Allergy status to other drugs, medicaments and biological substances
CPT/HCPCS: 50010; 50101; 50386; 56526; 57006; 57091; 57179; 62110; 62900; 70005

== ENCOUNTER 2022-01-01 09:03 | Emergency (ER) | payer OTHER ==
[~2022-01-01] VITALS: Ht 170.2 cm; Wt 100.2 kg
[2022-01-01 10:53] LABS: BASOPHILS 0.8 % (0.0-2.0); EOSINOPHILS 0.7 % (0.0-3.0); HEMATOCRIT 38.5 % (37.0-47.0); HEMOGLOBIN 12.5 gm/dL (12.0-15.0); LYMPHOCYTES 27.7 % (24.0-44.0); MCH 29.2 pg (26.0-34.0); MCHC 32.5 g/dL (28.0-37.0); MCV 89.6 fL (80.0-100.0); MONOCYTES 5.4 % (1.0-8.0); PLATELET COUNT 346 thou/uL (150-400); POLYS 65.4 % (36.0-66.0); RBC 4.29 mil/uL (4.20-5.00); RDW 16.7 % (10.5-14.5); WBC 7.7 thou/uL (4.0-11.0)
[2022-01-01 11:11] LABS: CALCIUM 8.6 mg/dL (8.5-10.1); CREATININE 0.8 mg/dL (0.6-1.0); POTASSIUM 3.9 mmol/L (3.5-5.1)
[2022-01-01 11:19] LABS: ALBUMIN 3.2 g/dL (3.4-5.0); TOTAL BILIRUBIN 0.2 mg/dL (0.2-1.0); TOTAL PROTEIN 6.4 g/dL (6.4-8.2)
[2022-01-01 12:10] VITALS: BP 100/53
--- NOTE | 2022-01-02 08:21 | EKG ---
[address] [address] [place] [address] ELECTROCARDIOGRAM REPORT Name: JUVE SNEEDN ALLYSSA [facility]: [facility] [id number] Admission: 01/01/22 Attend Phys: Discharge: 01/01/22 Date of : 59 Report #: [id number] [facility] ED Test Date: 2022-01-01 Test Time: 10:25:38 Pat Name: MIGDALIA SNEED Department: Room: Gender: F Rn Community: : 1955 Requested By: [place] Perez Order Number: [id number] MD: Eduardo Guy Measurements Intervals [place] Rate: 70 P: 77 [place]: 179 QRS: 46 QRSD: 86 T: 37 QT: 370 QTc: 400 Interpretive Statements Sinus rhythm No significant abnormality Compared to ECG 11/14/2021 11:42:50 First degree AV block no longer present Electronically Signed On 01-02-2022 8:21:46 [place] by Eduardo Guy [email or web address] <ELECTRONICALLY SIGNED> By: Eduardo Guy MD, [facility] 01/02/22 0821 1025 1025 Eduardo Guy MD, FACC /EPI
== END 2022-01-01 12:11 | disposition home or self-care (01) ==
LOC: ER 09:03
PROVIDERS: Emergency Medicine
DX: J06.9 Acute upper respiratory infection, unspecified (principal); Z20.822 Contact with and (suspected) exposure to COVID-19; H66.91 Otitis media, unspecified, right ear; K21.9 Gastro-esophageal reflux disease without esophagitis; E78.5 Hyperlipidemia, unspecified; F41.9 Anxiety disorder, unspecified; J44.9 Chronic obstructive pulmonary disease, unspecified; I50.9 Heart failure, unspecified; F17.210 Nicotine dependence, cigarettes, uncomplicated; Z90.710 Acquired absence of both cervix and uterus; Z79.899 Other long term (current) drug therapy; Z90.49 Acquired absence of other specified parts of digestive tract; Z88.5 Allergy status to narcotic agent; Z88.6 Allergy status to analgesic agent